=== PATIENT | female | born 1980 | race Caucasian/White ===

== ENCOUNTER 2017-06-13 18:57 | Emergency (ER) | payer OTHER ==
[2017-06-13] MEDS ORDERED: cephALEXin 250 MG CAPSULE PO STA (20:17)
--- NOTE | 2017-06-13 20:18 | ED Physician Documentation ---
PD HPI SKIN - Stated complaint Stated Complaint: BUG BITE - Chief complaint Chief Complaint: Wound - History obtained from History obtained from: Patient - History of Present Illness Timing - onset: Today, Yesterday Timing - details: Gradual onset, Still present Location: LLE Quality / character: Painful, Discolored Associated symptoms: No: Fever, Myalgias, Joint pain Contributing factors: Insect bite /sting Similar symptoms before: Has not had sx before Recently seen: Not recently seen - Additional information Additional information: Patient is a 37 year old female with no significant past medical history who is presenting to the emergency department for redness and swelling on her left lower extremity. Patient states that she had a bug bite there yesterday and she was scratching it. Today it was larger, painful and had some streaking redness. Review of Systems Constitutional: denies: Fever, Chills Eyes: reports: Reviewed and negative Ears: reports: Reviewed and negative Nose: reports: Reviewed and negative Throat: reports: Reviewed and negative Cardiac: reports: Reviewed and negative Respiratory: reports: Reviewed and negative GI: denies: Nausea, Vomiting : reports: Reviewed and negative Skin: reports: Rash, Lesions Musculoskeletal: reports: Extremity pain Neurologic: denies: Generalized weakness, Focal weakness Immunocompromised: denies: Immunocompromised PD PAST MEDICAL HISTORY - Past Medical History Past Medical History: No - Past Surgical History Past Surgical History: No - Present Medications Home Medications: Ambulatory Orders Medication Instructions Recorded Confirmed Cephalexin [Keflex] 500 mg PO Q6H 7 Days capsule 06/13/17 Citalopram [CeleXA] 40 mg PO DAILY 06/13/17 06/13/17 Fluticasone [Flonase] 06/13/17 Omeprazole 40 mg PO DAILY 06/13/17 06/13/17 - Allergies Allergies/Adverse Reactions: Allergies Allergy/AdvReac Type Severity Reaction Status Date / Time No Known Drug Allergies Allergy Verified 06/13/17 19:13 - Social History Does the pt smoke?: No Smoking Status: Never smoker - Immunizations Immunizations are current?: Yes PD ED PE NORMAL - Vitals Vital signs reviewed: Yes - General General: Alert and oriented X 3, No acute distress - HEENT HEENT: Atraumatic, PERRL - Cardiac Cardiac: RRR - Respiratory Respiratory: No respiratory distress - Neuro Neuro: Alert and oriented X 3, No motor deficit, No sensory deficit, Normal speech - Psych Psych: Normal mood PD ED PE EXPANDED - Derm Derm: Rash (5cm by 5cm area of induration with central lesion consistent with cellulitis) - Extremities Extremities: Left knee (erythema and swelling of medial left knee 5cm by 5cm streaking redness) Results - Vitals Vitals: Vital Signs - 24 hr 06/13/17 06/13/17 19:10 20:50 Temperature 36.4 C L 36.6 C Heart Rate 71 73 Respiratory 17 16 Rate Blood Pressure 147/81 H 131/81 H O2 Saturation 100 98 Oxygen O2 Source Room air PD MEDICAL DECISION MAKING - ED course Complexity details: reviewed old records, reviewed results, considered differential, d/w patient ED course: Patient was seen and examined at bedside. Patient's findings were consistent with cellulitis. Patient's lesion was outlined and patient was treated with bactrim. Patient was given detailed discharge and follow up instructions and was stable for outpatient follow up. Departure - Departure Disposition: Home, Self Care Clinical Impression: Cellulitis Condition: Good Instructions: ED Infec Skin Cellulitis Follow-Up: Talisha Yang MD [Primary Care Provider] - Within 3 Days Prescriptions: Cephalexin [Keflex] 500 mg PO Q6H 7 Days capsule Comments: Your symptoms today are being caused by a skin infection. You had your first dose of antibiotics tonight and will need to be on them for the next week. You can also use topical antibiotics. It has been outlined and you should monitor to make sure it doesn't get larger. You should follow up with your pmd for re- evaluation but may return to the emergency department at any time for new, worsening or uncontrollable symptoms. Discharge Date/Time: 06/13/17 20:52
[2017-06-13 20:52] VITALS: BP 131/81
== END 2017-06-13 20:52 | disposition home or self-care (01) ==
LOC: ED 18:57
DX: L03.116 Cellulitis of left lower limb (principal)
CPT/HCPCS: 99283; A9270

== ENCOUNTER 2021-04-11 08:00 | Outpatient (CLI) | payer OTHER | END 2021-04-11 23:59 | disposition home or self-care (01) | LOC: LAB.N 08:00 | PROVIDERS: ATTEND Physician Assistant Medical | DX: R09.81 Nasal congestion (principal); Z20.822 Contact with and (suspected) exposure to COVID-19 ==

== ENCOUNTER 2021-10-07 12:00 | Outpatient (CLI) | payer OTHER | END 2021-10-07 23:59 | disposition home or self-care (01) | LOC: LAB.N 12:00 | PROVIDERS: ATTEND Nurse Practitioner Family | DX: B34.9 Viral infection, unspecified (principal); Z20.822 Contact with and (suspected) exposure to COVID-19 ==

== ENCOUNTER 2022-03-13 09:16 | Outpatient (CLI) | payer OTHER | END 2022-03-13 09:17 | disposition critical access hospital (66) | LOC: EMS 09:16 | DX: S99.911A Unspecified injury of right ankle, initial encounter (principal); W10.9XXA Fall (on) (from) unspecified stairs and steps, initial encounter; Y93.01 Activity, walking, marching and hiking; Y92.008 Other place in unspecified non-institutional (private) residence as the place of occurrence of the external cause | CPT/HCPCS: A0425; A0429 ==

== ENCOUNTER 2022-03-13 09:49 | Emergency (ER) | payer OTHER ==
[2022-03-13] MEDS ORDERED: HYDROmorphone 1 MG/ML CARPUJECT IVP STA (10:05)
--- OUTSIDE RECORDS SUMMARY | 2022-03-13 10:13 | EXTERNAL MEDICAL SUMMARY RPT | Continuity of Care Document ---
:1980 Author Organization [facility] Address [address] [place] [address] Phone Allergies No information. Encounters No information. Functional Status No information. Immunizations No information. Medications No information. Problems No information. Procedures date description facility + Visit Code Hold All +0000 IM or SQ Injection All +0000 Ketorolac Tromethamine 30 mg/ml Soln All Results/Labs test date author facility value unit interpret ation Result panel 1 (unknown) (no (unknown) (unknown) (no value) (units (unk nown) date) unknown) (unknown) (no (unknown) (unknown) 02/01/22 (units (unkno wn) date) unknown) (unknown) (no (unknown) (unknown) [id number] (units (unkno wn) date) unknown) (unknown) (no (unknown) (unknown) Age/Sex: 41 / F (units (unknown) date) Date of Service: unknown) (unknown) (no (unknown) (unknown) Allergies (units (unkn own) date) unknown) (unknown) (no (unknown) (unknown) [place], [place] (units ( unknown) date) [id number] unknown) (unknown) (no (unknown) (unknown) Attending Dr: (units ( unknown) date) Jason Lilly unknown) [employer] (unknown) (no (unknown) (unknown) : 1980 (units (unknown) date) Acct:[id number] unknown) (unknown) (no (unknown) (unknown) Dept at (units (unkno wn) date) . unknown) (unknown) (no (unknown) (unknown) Documented By: (units (unknown) date) Jason Lilly unknown) KAITLIN 02/01/22 1034 (unknown) (no (unknown) (unknown) Draft (units (unkno wn) date) unknown) (unknown) (no (unknown) (unknown) Intake (units (unkno wn) date) unknown) (unknown) (no (unknown) (unknown) Loc: [facility]EP (units (unk nown) date) unknown) (unknown) (no (unknown) (unknown) No Known Drug (units ( unknown) date) Allergies Allergy unknown) (Verified 12/18/18 23:49) (unknown) (no (unknown) (unknown) PFSH (units (unkno wn) date) unknown) (unknown) (no (unknown) (unknown) Patient: (units (unkno wn) date) Yadira Arrieta unknown) MR#: [id number] (unknown) (no (unknown) (unknown) Reason For Visit (units (unknown) date) unknown) (unknown) (no (unknown) (unknown) Signed By: (units (unk nown) date) unknown) (unknown) (no (unknown) (unknown) Sleep Visit (units (un known) date) unknown) (unknown) (no (unknown) (unknown) [facility] ([facility] unknown) (unknown) (no (unknown) (unknown) Smoking Status: (units (unknown) date) Never smoker unknown) (unknown) (no (unknown) (unknown) This note may (units ( unknown) date) have been all or unknown) partially generated using voice recognition (unknown) (no (unknown) (unknown) Tobacco + (units (unkn own) date) Substance Use unknown) (unknown) (no (unknown) (unknown) Tobacco Status (units (unknown) date) unknown) (unknown) (no (unknown) (unknown) Visit Reasons: (units (unknown) date) 2M comp unknown) (unknown) (no (unknown) (unknown) have occurred. (units (unknown) date) If there are any unknown) questions, please contact the Medical Records (unknown) (no (unknown) (unknown) may occur. (units (unk nown) date) Occasional unknown) wrong-word or 'sound-alike' substitutions may have (unknown) (no (unknown) (unknown) occurred due to (units (unknown) date) the inherent unknown) limitations of voice recognition software. Please (unknown) (no (unknown) (unknown) read the note (units ( unknown) date) carefully and unknown) recognize, using context, where these substitutions (unknown) (no (unknown) (unknown) software. (units (unkn own) date) Although every unknown) effort is made to edit content, garde manger errors Result panel 2 (unknown) (no (unknown) (unknown) (no value) (units (unk nown) date) unknown) (unknown) (no (unknown) (unknown) (1) (units (unkno wn) date) Breathing-related unknown) sleep disorder: (unknown) (no (unknown) (unknown) (2) Insomnia: (units ( unknown) date) unknown) (unknown) (no (unknown) (unknown) (3) Excessive (units ( unknown) date) daytime unknown) sleepiness: (unknown) (no (unknown) (unknown) (4) History of (units (unknown) date) snoring: unknown) (unknown) (no (unknown) (unknown) 02/01/22 (units (unkno wn) date) unknown) (unknown) (no (unknown) (unknown) [id number] (units (unkno wn) date) unknown) (unknown) (no (unknown) (unknown) Adhere to regular (units (unknown) date) mealtime schedule, unknown) avoid snacking (unknown) (no (unknown) (unknown) Affect: normal (units (unknown) date) affect unknown) (unknown) (no (unknown) (unknown) Age/Sex: 41 / F (units (unknown) date) Date of Service: unknown) (unknown) (no (unknown) (unknown) Allergies (units (unkn own) date) unknown) (unknown) (no (unknown) (unknown) [place] (units ( unknown) date) [id number] unknown) (unknown) (no (unknown) (unknown) Appearance: (units (un known) date) grossly normal unknown) (unknown) (no (unknown) (unknown) Assessment + Plan (units (unknown) date) unknown) (unknown) (no (unknown) (unknown) Assessment and (units (unknown) date) Plan: unknown) (unknown) (no (unknown) (unknown) Associate your bed (units (unknown) date) with sleep. It's unknown) not a good idea to use your bed to watch TV, (unknown) (no (unknown) (unknown) Attending Dr: (units ( unknown) date) Jason MADRIGAL unknown) (unknown) (no (unknown) (unknown) Attitude: (units (unkn own) date) cooperative unknown) (unknown) (no (unknown) (unknown) Auto CPAP set (units ( unknown) date) pressures: CWP unknown) (unknown) (no (unknown) (unknown) Avoid alcohol (units ( unknown) date) after 4 pm unknown) (unknown) (no (unknown) (unknown) Avoid medications (units (unknown) date) which may unknown) interfere with sleep (unknown) (no (unknown) (unknown) Avoid random (units (u nknown) date) napping during the unknown) day; it can disturb the normal pattern of sleep (unknown) (no (unknown) (unknown) Avoid stimulants (units (unknown) date) such as caffeine, unknown) nicotine, and alcohol too close to bedtime. (unknown) (no (unknown) (unknown) Cognition: normal (units (unknown) date) cognition unknown) (unknown) (no (unknown) (unknown) Condition is (units (u nknown) date) Onset: Chronic and unknown) ongoing condition (unknown) (no (unknown) (unknown) Conjunctivae: (units ( unknown) date) conjunctivae unknown) normal (unknown) (no (unknown) (unknown) Consider weaning (units (unknown) date) caffeine use, unknown) starting with no caffeine after 3pm (unknown) (no (unknown) (unknown) Const (units (unkno wn) date) unknown) (unknown) (no (unknown) (unknown) Currently using (units (unknown) date) CPAP 5-15 cwp. unknown) Compliance is excellent. Using her machine (unknown) (no (unknown) (unknown) DME: (units (unkno wn) date) unknown) (unknown) (no (unknown) (unknown) : 1980 (units (unknown) date) Acct:[id number] unknown) (unknown) (no (unknown) (unknown) Dept at (units (unkno wn) date) . unknown) (unknown) (no (unknown) (unknown) Details: (units (unkno wn) date) unknown) (unknown) (no (unknown) (unknown) Device data last (units (unknown) date) 90 days: unknown) (unknown) (no (unknown) (unknown) Device set up: (units (unknown) date) unknown) (unknown) (no (unknown) (unknown) Documented By: (units (unknown) date) Jason Lilly unknown) 02/01/22 1034 (unknown) (no (unknown) (unknown) Draft (units (unkno wn) date) unknown) (unknown) (no (unknown) (unknown) Drowsy driving (units (unknown) date) handout made unknown) available. (unknown) (no (unknown) (unknown) Ears: hearing (units ( unknown) date) grossly normal unknown) bilaterally (unknown) (no (unknown) (unknown) Effort + (units (unkno wn) date) Inspection: normal unknown) respiratory effort, able to speak in complete (unknown) (no (unknown) (unknown) Ensure adequate (units (unknown) date) exposure to unknown) natural light. This is particularly important for (unknown) (no (unknown) (unknown) [place] (units (unkno wn) date) Sleepiness Scale unknown) score of 11/18 on [place]. This can be seen secondary (unknown) (no (unknown) (unknown) Establish a (units (unk nown) date) regular relaxing unknown) bedtime routine. Try to avoid emotionally upsetting (unknown) (no (unknown) (unknown) Exam Narrative (units (unknown) date) unknown) (unknown) (no (unknown) (unknown) Exam Narrative: (units (unknown) date) unknown) (unknown) (no (unknown) (unknown) Exam (units (unkno wn) date) unknown) (unknown) (no (unknown) (unknown) Eyes (units (unkno wn) date) unknown) (unknown) (no (unknown) (unknown) Food can be (units (un known) date) disruptive right unknown) before sleep; stay away from large meals close to (unknown) (no (unknown) (unknown) General: (units (unkno wn) date) cooperative, unknown) comfortable and no acute distress (unknown) (no (unknown) (unknown) General: patient (units (unknown) date) alert, patient unknown) awake and patient oriented x3 (unknown) (no (unknown) (unknown) Get regular (units (un known) date) moderate exercise unknown) (30 minutes, 3x/week) (unknown) (no (unknown) (unknown) HENMT (units (unkno wn) date) unknown) (unknown) (no (unknown) (unknown) HPI Sleep Follow (units (unknown) date) Up unknown) (unknown) (no (unknown) (unknown) Head: normal to (units (unknown) date) inspection unknown) (unknown) (no (unknown) (unknown) Implications of (units (unknown) date) these findings unknown) were discussed. Next steps were discussed. Given (unknown) (no (unknown) (unknown) Intake (units (unkno wn) date) unknown) (unknown) (no (unknown) (unknown) Light exposure (units (unknown) date) during the day unknown) helps maintain a healthy sleep-wake cycle. In (unknown) (no (unknown) (unknown) Loc: SLEEP (units (unk nown) date) unknown) (unknown) (no (unknown) (unknown) Make sure that the (units (unknown) date) sleep environment unknown) is pleasant and relaxing. The bed should be (unknown) (no (unknown) (unknown) Mallampati score (units (unknown) date) of IV. Diagnostic unknown) sleep study was consistent with less than (unknown) (no (unknown) (unknown) Mood: congruent (units (unknown) date) mood unknown) (unknown) (no (unknown) (unknown) Neck (units (unkno wn) date) unknown) (unknown) (no (unknown) (unknown) Neck: normal (units (u nknown) date) visual inspection unknown) (unknown) (no (unknown) (unknown) Neuro (units (unkno wn) date) unknown) (unknown) (no (unknown) (unknown) No Known Drug (units ( unknown) date) Allergies Allergy unknown) (Verified 12/18/18 23:49) (unknown) (no (unknown) (unknown) PFSH (units (unkno wn) date) unknown) (unknown) (no (unknown) (unknown) Patient has a (units ( unknown) date) history of chronic unknown) snoring. Positional therapy and the use of (unknown) (no (unknown) (unknown) Patient (units (unkno wn) date) instructed to use unknown) scheduled naps as needed for drowsiness safety (unknown) (no (unknown) (unknown) Patient (units (unkno wn) date) prescribed unknown) continued CPAP therapy at 9-15 cwp. No changes made today. (unknown) (no (unknown) (unknown) Patient reports a (units (unknown) date) history of snoring unknown) and a disturbed sleep pattern. There is (unknown) (no (unknown) (unknown) Patient reports (units (unknown) date) symptoms of unknown) chronic insomnia for more than 3 months as evidenced (unknown) (no (unknown) (unknown) Patient was (units (un known) date) encouraged to unknown) maintain PAP usage at a minimum of 4 hours a night, (unknown) (no (unknown) (unknown) Patient was (units (un known) date) instructed to unknown) avoid driving or operating heavy machinery when (unknown) (no (unknown) (unknown) Patient's (units (unkno wn) date) diagnostic sleep unknown) study was consistent with less than significant sleep (unknown) (no (unknown) (unknown) Patient: (units (unkno wn) date) MeenakshiYadira Romero MR#: unknown) [id number] (unknown) (no (unknown) (unknown) Plan (units (unkno wn) date) unknown) (unknown) (no (unknown) (unknown) Positional (units (unk nown) date) therapy as needed. unknown) (unknown) (no (unknown) (unknown) Prescription (units (u nknown) date) written for unknown) renewal of PAP supplies; (unknown) (no (unknown) (unknown) Properly timed (units (unknown) date) exercise can unknown) promote good sleep. Vigorous exercise should be (unknown) (no (unknown) (unknown) Psych (units (unkno wn) date) unknown) (unknown) (no (unknown) (unknown) RDIs have been (units (unknown) date) 14.6, 19.1(with a unknown) little REM sleep) and 18.4. This is consistent (unknown) (no (unknown) (unknown) Reason For Visit (units (unknown) date) unknown) (unknown) (no (unknown) (unknown) Resp (units (unkno wn) date) unknown) (unknown) (no (unknown) (unknown) Return visit in 6 (units (unknown) date) months to assess unknown) continued response to PAP therapy Patient was (unknown) (no (unknown) (unknown) Sclera: sclerae (units (unknown) date) normal unknown) (unknown) (no (unknown) (unknown) Signed By: (units (unk nown) date) unknown) (unknown) (no (unknown) (unknown) Sleep Visit (units (un known) date) unknown) (unknown) (no (unknown) (unknown) [facility] unknown) (unknown) (no (unknown) (unknown) Smoking Status: (units (unknown) date) Never smoker unknown) (unknown) (no (unknown) (unknown) Speech and (units (unk nown) date) Movement: speech unknown) and movement normal (unknown) (no (unknown) (unknown) Speech: speech (units (unknown) date) normal unknown) (unknown) (no (unknown) (unknown) The basics of the (units (unknown) date) pathophysiology of unknown) sleep apnea and the effect on sleep in (unknown) (no (unknown) (unknown) The patient (units (un known) date) reports symptoms unknown) of excessive daytime sleepiness as evidenced by (unknown) (no (unknown) (unknown) This can be seen (units (unknown) date) secondary to sleep unknown) apnea, depression, medical conditions or can (unknown) (no (unknown) (unknown) This is (units (unkno wn) date) consistent with unknown) nocturnal respiratory disturbance or UARS. CPAP was (unknown) (no (unknown) (unknown) This note may (units ( unknown) date) have been all or unknown) partially generated using voice recognition (unknown) (no (unknown) (unknown) This will be (units (u nknown) date) reassessed after unknown) her nocturnal respiratory disturbance has been (unknown) (no (unknown) (unknown) Tobacco + (units (unkn own) date) Substance Use unknown) (unknown) (no (unknown) (unknown) Tobacco Status (units (unknown) date) unknown) (unknown) (no (unknown) (unknown) Treatment (units (unkn own) date) Effects: Pap unknown) Treatment Response/Side Effects: adherent to current PAP (unknown) (no (unknown) (unknown) Treatment (units (unkn own) date) Response/Side unknown) Affects (unknown) (no (unknown) (unknown) 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 History of snoring and a disturbed (unknown) (no (unknown) (unknown) Usage: 100% with (units (unknown) date) % greater than 4 unknown) hours. Leak . AHIflow: (unknown) (no (unknown) (unknown) Use of nasal (units (u nknown) date) steroids and unknown) montelukast was also reviewed. This has been noted to (unknown) (no (unknown) (unknown) Visit Reasons: 2M (units (unknown) date) comp unknown) (unknown) (no (unknown) (unknown) Visit type (FU): (units (unknown) date) follow up of LANA unknown) therapy (Follow up UARS) Follow up evaluation (unknown) (no (unknown) (unknown) While alcohol is (units (unknown) date) well known to unknown) speed the onset of sleep, it disrupts sleep in (unknown) (no (unknown) (unknown) a repeat sleep (units (unknown) date) study with the use unknown) of a hypnotic was indicated. this third study (unknown) (no (unknown) (unknown) activities, you (units (unknown) date) may have more unknown) problems getting back to sleep during the night. (unknown) (no (unknown) (unknown) addition, (units (unkn own) date) avoiding nighttime unknown) bright light exposure, which can occur with many (unknown) (no (unknown) (unknown) addressed. (units (unk nown) date) unknown) (unknown) (no (unknown) (unknown) again showed (units (un known) date) little to no rem unknown) sleep, poor quality sleep and an elevated RDI. the (unknown) (no (unknown) (unknown) also a history of (units (unknown) date) depression and unknown) chronic insomnia with a Mallampati score of IV. (unknown) (no (unknown) (unknown) and her elevated (units (unknown) date) RDI, a repeat unknown) sleep study with the use of a hypnotic was (unknown) (no (unknown) (unknown) and wakefulness. (units (unknown) date) Scheduled napping unknown) may be considered if appropriate for the (unknown) (no (unknown) (unknown) apnea, no (units (unkn own) date) snoring, some unknown) desaturation events and no significant leg movements. (unknown) (no (unknown) (unknown) approved. (units (unkn own) date) unknown) (unknown) (no (unknown) (unknown) be an independent (units (unknown) date) problem. Sleep unknown) hygiene and sleep schedules were discussed. (unknown) (no (unknown) (unknown) be moderate on (units (unknown) date) all her sleep unknown) studies. we will continue to follow going forward. (unknown) (no (unknown) (unknown) bedtime. Also (units (u nknown) date) dietary changes unknown) can cause sleep problems, if someone is struggling (unknown) (no (unknown) (unknown) bring your (units (unk nown) date) problems to bed. unknown) (unknown) (no (unknown) (unknown) but increased (units ( unknown) date) benefit from more unknown) usage was also explained. (unknown) (no (unknown) (unknown) by trouble (units (unk nown) date) falling asleep, unknown) trouble staying asleep and non-restorative sleep. (unknown) (no (unknown) (unknown) clearly (units (unkno wn) date) benefitting from unknown) PAP therapy and is willing to continue. (unknown) (no (unknown) (unknown) clinical history (units (unknown) date) it was determined unknown) that a diagnostic sleep study was indicated. (unknown) (no (unknown) (unknown) comfortable, the (units (unknown) date) room should be unknown) quiet, not too hot or cold, or too bright. (unknown) (no (unknown) (unknown) conversations and (units (unknown) date) activities before unknown) trying to go to sleep. Don't dwell on, or (unknown) (no (unknown) (unknown) daytime sleeping (units (unknown) date) complaints of unknown) sleepiness at work and drowsy driving with an (unknown) (no (unknown) (unknown) dishes. And, (units (u nknown) date) remember, unknown) chocolate has caffeine. (unknown) (no (unknown) (unknown) done before bed (units (unknown) date) to help initiate a unknown) restful night's sleep. (unknown) (no (unknown) (unknown) drowsy. (units (unkno wn) date) unknown) (unknown) (no (unknown) (unknown) elevated RDI. the (units (unknown) date) RDIs have been unknown) 14.6, 19.1(with a little REM sleep) and 18.4. (unknown) (no (unknown) (unknown) general were (units (u nknown) date) discussed at unknown) length. After review of the physical findings and (unknown) (no (unknown) (unknown) have occurred. If (units (unknown) date) there are any unknown) questions, please contact the Medical Records (unknown) (no (unknown) (unknown) her sleep issues, (units (unknown) date) low REM sleep unknown) amount on the sleep study and her elevated RDI, (unknown) (no (unknown) (unknown) indicated to (units (u nknown) date) determine to what unknown) extent this is contributing to her poor quality (unknown) (no (unknown) (unknown) indicated. Study (units (unknown) date) again showed unknown) little to no rem sleep, poor quality sleep and an (unknown) (no (unknown) (unknown) initiated. (units (unk nown) date) unknown) (unknown) (no (unknown) (unknown) instructed to (units ( unknown) date) return sooner if unknown) any questions or concerns arise. (unknown) (no (unknown) (unknown) leg movements. (units (unknown) date) Given her sleep unknown) issues, low REM sleep amount on the sleep study (unknown) (no (unknown) (unknown) listen to the (units ( unknown) date) radio, or read as unknown) if you associate falling asleep with these (unknown) (no (unknown) (unknown) may occur. (units (unk nown) date) Occasional unknown) wrong-word or 'sound-alike' substitutions may have (unknown) (no (unknown) (unknown) nasal saline and (units (unknown) date) internal and unknown) external nasal dilator therapies were discussed. (unknown) (no (unknown) (unknown) occurred due to (units (unknown) date) the inherent unknown) limitations of voice recognition software. Please (unknown) (no (unknown) (unknown) of LANA therapy: (units (unknown) date) CPAP (5-15 cwp) unknown) (unknown) (no (unknown) (unknown) older people who (units (unknown) date) may not venture unknown) outside as frequently as children and adults. (unknown) (no (unknown) (unknown) once her (units (unkno wn) date) nocturnal unknown) respiratory disturbance has been addressed. (unknown) (no (unknown) (unknown) optimal sleep (units ( unknown) date) schedule. unknown) (unknown) (no (unknown) (unknown) personal (units (unkno wn) date) electronic unknown) devices, can also help maintain a healthy sleep-wake cycle. (unknown) (no (unknown) (unknown) positive (units (unkno wn) date) improvement as unknown) evidenced by decreased daytime sleepiness. She is (unknown) (no (unknown) (unknown) problem. Risks and (units (unknown) date) symptoms of unknown) drowsiness were reviewed. This will be reassessed (unknown) (no (unknown) (unknown) read the note (units ( unknown) date) carefully and unknown) recognize, using context, where these substitutions (unknown) (no (unknown) (unknown) regularly. (units (unk nown) date) Reports no issues unknown) with the machine, mask or pressure. Showing (unknown) (no (unknown) (unknown) sentences and no (units (unknown) date) audible wheezes unknown) (unknown) (no (unknown) (unknown) significant sleep (units (unknown) date) apnea, no snoring, unknown) some desaturation events and no significant (unknown) (no (unknown) (unknown) sleep and daytime (units (unknown) date) sleepiness. Her unknown) insurance will be contracted to determine if (unknown) (no (unknown) (unknown) sleep pattern. (units ( unknown) date) There is also a unknown) history of depression and chronic insomnia with a (unknown) (no (unknown) (unknown) software. (units (unkn own) date) Although every unknown) effort is made to edit content, garde manger errors (unknown) (no (unknown) (unknown) taken in the (units (u nknown) date) morning or late unknown) afternoon. A relaxing exercise, like yoga, can be (unknown) (no (unknown) (unknown) the second half (units (unknown) date) as the body begins unknown) to metabolize the alcohol, causing arousal. (unknown) (no (unknown) (unknown) the therapy will (units (unknown) date) be covered. She is unknown) willing to proceed with PAP therapy if (unknown) (no (unknown) (unknown) to sleep apnea, (units (unknown) date) insomnia, unknown) depression, medical conditions or can be a primary (unknown) (no (unknown) (unknown) treatment (units (unkn own) date) improving on unknown) treatment (unknown) (no (unknown) (unknown) with a sleep (units (u nknown) date) problem, it's not unknown) a good time to start experimenting with spicy (unknown) (no (unknown) (unknown) with nocturnal (units (unknown) date) respiratory unknown) disturbance or UARS. Treatment with CPAP therapy is Result panel 3 (unknown) (no (unknown) (unknown) (no value) (units (unk nown) date) unknown) (unknown) (no (unknown) (unknown) (1) (units (unkno wn) date) Breathing-related unknown) sleep disorder: (unknown) (no (unknown) (unknown) (2) Insomnia: (units ( unknown) date) unknown) (unknown) (no (unknown) (unknown) (3) Excessive (units ( unknown) date) daytime unknown) sleepiness: (unknown) (no (unknown) (unknown) (4) History of (units (unknown) date) snoring: unknown) (unknown) (no (unknown) (unknown) 02/01/22 (units (unkno wn) date) unknown) (unknown) (no (unknown) (unknown) [id number] (units (unkno wn) date) unknown) (unknown) (no (unknown) (unknown) AHIflow: 1.4 (units (u nknown) date) unknown) (unknown) (no (unknown) (unknown) Adhere to regular (units (unknown) date) mealtime schedule, unknown) avoid snacking (unknown) (no (unknown) (unknown) Affect: normal (units (unknown) date) affect unknown) (unknown) (no (unknown) (unknown) Age/Sex: 41 / F (units (unknown) date) Date of Service: unknown) (unknown) (no (unknown) (unknown) Allergies (units (unkn own) date) unknown) (unknown) (no (unknown) (unknown) OLGA Owen (units ( unknown) date) [id number] unknown) (unknown) (no (unknown) (unknown) Appearance: (units (un known) date) grossly normal unknown) (unknown) (no (unknown) (unknown) Assessment + Plan (units (unknown) date) unknown) (unknown) (no (unknown) (unknown) Assessment and (units (unknown) date) Plan: unknown) (unknown) (no (unknown) (unknown) Associate your bed (units (unknown) date) with sleep. It's unknown) not a good idea to use your bed to watch TV, (unknown) (no (unknown) (unknown) Attending Dr: (units ( unknown) date) Jason MADRIGAL unknown) (unknown) (no (unknown) (unknown) Attitude: (units (unkn own) date) cooperative unknown) (unknown) (no (unknown) (unknown) Auto CPAP set (units ( unknown) date) pressures: 5-15 unknown) CWP (unknown) (no (unknown) (unknown) Avoid alcohol (units ( unknown) date) after 4 pm unknown) (unknown) (no (unknown) (unknown) Avoid medications (units (unknown) date) which may unknown) interfere with sleep (unknown) (no (unknown) (unknown) Avoid random (units (u nknown) date) napping during the unknown) day; it can disturb the normal pattern of sleep (unknown) (no (unknown) (unknown) Avoid stimulants (units (unknown) date) such as caffeine, unknown) nicotine, and alcohol too close to bedtime. (unknown) (no (unknown) (unknown) Cognition: normal (units (unknown) date) cognition unknown) (unknown) (no (unknown) (unknown) Condition is (units (u nknown) date) Onset: Chronic and unknown) ongoing condition (unknown) (no (unknown) (unknown) Conjunctivae: (units ( unknown) date) conjunctivae unknown) normal (unknown) (no (unknown) (unknown) Consider weaning (units (unknown) date) caffeine use, unknown) starting with no caffeine after 3pm (unknown) (no (unknown) (unknown) Const (units (unkno wn) date) unknown) (unknown) (no (unknown) (unknown) Currently using (units (unknown) date) CPAP 5-15 cwp. unknown) Compliance is excellent. Using her machine (unknown) (no (unknown) (unknown) DME: (units (o wn) date) unknown) (unknown) (no (unknown) (unknown) : 1980 (units (unknown) date) Acct:[id number] unknown) (unknown) (no (unknown) (unknown) Dept at (units (o wn) date) . unknown) (unknown) (no (unknown) (unknown) Details: (units (o wn) date) unknown) (unknown) (no (unknown) (unknown) Device data last (units (unknown) date) 60 days: unknown) (unknown) (no (unknown) (unknown) Device set up: (units (unknown) date) unknown) (unknown) (no (unknown) (unknown) Documented By: (units (unknown) date) Jason Lilly unknown) 02/01/22 1034 (unknown) (no (unknown) (unknown) Draft (units (unkno wn) date) unknown) (unknown) (no (unknown) (unknown) Drowsy driving (units (unknown) date) handout made unknown) available. (unknown) (no (unknown) (unknown) Ears: hearing (units ( unknown) date) grossly normal unknown) bilaterally (unknown) (no (unknown) (unknown) Effort + (units (unkno wn) date) Inspection: normal unknown) respiratory effort, able to speak in complete (unknown) (no (unknown) (unknown) Ensure adequate (units (unknown) date) exposure to unknown) natural light. This is particularly important for (unknown) (no (unknown) (unknown) [place] (units (unkno wn) date) Sleepiness Scale unknown) score of 06/24 on [place]. This can be seen secondary (unknown) (no (unknown) (unknown) Establish a (units (unk nown) date) regular relaxing unknown) bedtime routine. Try to avoid emotionally upsetting (unknown) (no (unknown) (unknown) Exam Narrative (units (unknown) date) unknown) (unknown) (no (unknown) (unknown) Exam Narrative: (units (unknown) date) unknown) (unknown) (no (unknown) (unknown) Exam (units (unkno wn) date) unknown) (unknown) (no (unknown) (unknown) Eyes (units (unkno wn) date) unknown) (unknown) (no (unknown) (unknown) Food can be (units (un known) date) disruptive right unknown) before sleep; stay away from large meals close to (unknown) (no (unknown) (unknown) General: (units (unkno wn) date) cooperative, unknown) comfortable and no acute distress (unknown) (no (unknown) (unknown) General: patient (units (unknown) date) alert, patient unknown) awake and patient oriented x3 (unknown) (no (unknown) (unknown) Get regular (units (un known) date) moderate exercise unknown) (30 minutes, 3x/week) (unknown) (no (unknown) (unknown) HENMT (units (unkno wn) date) unknown) (unknown) (no (unknown) (unknown) HPI Sleep Follow (units (unknown) date) Up unknown) (unknown) (no (unknown) (unknown) Head: normal to (units (unknown) date) inspection unknown) (unknown) (no (unknown) (unknown) Implications of (units (unknown) date) these findings unknown) were discussed. Next steps were discussed. Given (unknown) (no (unknown) (unknown) Intake (units (unkno wn) date) unknown) (unknown) (no (unknown) (unknown) Light exposure (units (unknown) date) during the day unknown) helps maintain a healthy sleep-wake cycle. In (unknown) (no (unknown) (unknown) Loc: SLEEP (units (unk nown) date) unknown) (unknown) (no (unknown) (unknown) Make sure that the (units (unknown) date) sleep environment unknown) is pleasant and relaxing. The bed should be (unknown) (no (unknown) (unknown) Mallampati score (units (unknown) date) of IV. Diagnostic unknown) sleep study was consistent with less than (unknown) (no (unknown) (unknown) Mood: congruent (units (unknown) date) mood unknown) (unknown) (no (unknown) (unknown) Neck (units (unkno wn) date) unknown) (unknown) (no (unknown) (unknown) Neck: normal (units (u nknown) date) visual inspection unknown) (unknown) (no (unknown) (unknown) Neuro (units (unkno wn) date) unknown) (unknown) (no (unknown) (unknown) No Known Drug (units ( unknown) date) Allergies Allergy unknown) (Verified 12/18/18 23:49) (unknown) (no (unknown) (unknown) PFSH (units (unkno wn) date) unknown) (unknown) (no (unknown) (unknown) Patient has a (units ( unknown) date) history of chronic unknown) snoring. Positional therapy and the use of (unknown) (no (unknown) (unknown) Patient (units (unkno wn) date) instructed to use unknown) scheduled naps as needed for drowsiness safety (unknown) (no (unknown) (unknown) Patient (units (unkno wn) date) prescribed unknown) continued CPAP therapy at 9-15 cwp. No changes made today. (unknown) (no (unknown) (unknown) Patient reports a (units (unknown) date) history of snoring unknown) and a disturbed sleep pattern. There is (unknown) (no (unknown) (unknown) Patient reports (units (unknown) date) symptoms of unknown) chronic insomnia for more than 3 months as evidenced (unknown) (no (unknown) (unknown) Patient was (units (un known) date) encouraged to unknown) maintain PAP usage at a minimum of 4 hours a night, (unknown) (no (unknown) (unknown) Patient was (units (un known) date) instructed to unknown) avoid driving or operating heavy machinery when (unknown) (no (unknown) (unknown) Patient's (units (unkno wn) date) diagnostic sleep unknown) study was consistent with less than significant sleep (unknown) (no (unknown) (unknown) Patient: (units (unkno wn) date) Yadira Arrieta MR#: unknown) [id number] (unknown) (no (unknown) (unknown) Plan (units (unkno wn) date) unknown) (unknown) (no (unknown) (unknown) Positional (units (unk nown) date) therapy as needed. unknown) (unknown) (no (unknown) (unknown) Prescription (units (u nknown) date) written for unknown) renewal of PAP supplies; (unknown) (no (unknown) (unknown) Properly timed (units (unknown) date) exercise can unknown) promote good sleep. Vigorous exercise should be (unknown) (no (unknown) (unknown) Psych (units (unkno wn) date) unknown) (unknown) (no (unknown) (unknown) RDIs have been (units (unknown) date) 14.6, 19.1(with a unknown) little REM sleep) and 18.4. This is consistent (unknown) (no (unknown) (unknown) Reason For Visit (units (unknown) date) unknown) (unknown) (no (unknown) (unknown) Resp (units (unkno wn) date) unknown) (unknown) (no (unknown) (unknown) Return visit in 6 (units (unknown) date) months to assess unknown) continued response to PAP therapy Patient was (unknown) (no (unknown) (unknown) Sclera: sclerae (units (unknown) date) normal unknown) (unknown) (no (unknown) (unknown) Signed By: (units (unk nown) date) unknown) (unknown) (no (unknown) (unknown) Sleep Visit (units (un known) date) unknown) (unknown) (no (unknown) (unknown) [facility] unknown) (unknown) (no (unknown) (unknown) Smoking Status: (units (unknown) date) Never smoker unknown) (unknown) (no (unknown) (unknown) Speech and (units (unk nown) date) Movement: speech unknown) and movement normal (unknown) (no (unknown) (unknown) Speech: speech (units (unknown) date) normal unknown) (unknown) (no (unknown) (unknown) The basics of the (units (unknown) date) pathophysiology of unknown) sleep apnea and the effect on sleep in (unknown) (no (unknown) (unknown) The patient (units (un known) date) reports symptoms unknown) of excessive daytime sleepiness as evidenced by (unknown) (no (unknown) (unknown) This can be seen (units (unknown) date) secondary to sleep unknown) apnea, depression, medical conditions or can (unknown) (no (unknown) (unknown) This is (units (unkno wn) date) consistent with unknown) nocturnal respiratory disturbance or UARS. CPAP was (unknown) (no (unknown) (unknown) This note may (units ( unknown) date) have been all or unknown) partially generated using voice recognition (unknown) (no (unknown) (unknown) This will be (units (u nknown) date) reassessed after unknown) her nocturnal respiratory disturbance has been (unknown) (no (unknown) (unknown) Tobacco + (units (unkn own) date) Substance Use unknown) (unknown) (no (unknown) (unknown) Tobacco Status (units (unknown) date) unknown) (unknown) (no (unknown) (unknown) Treatment (units (unkn own) date) Effects: Pap unknown) Treatment Response/Side Effects: adherent to current PAP (unknown) (no (unknown) (unknown) Treatment (units (unkn own) date) Response/Side unknown) Affects (unknown) (no (unknown) (unknown) 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 History of snoring and a disturbed (unknown) (no (unknown) (unknown) Usage: 56.7% (34 (units (unknown) date) days) with 51.7% unknown) greater than 4 hours. Leak 9 seconds. (unknown) (no (unknown) (unknown) Use of nasal (units (u nknown) date) steroids and unknown) montelukast was also reviewed. This has been noted to (unknown) (no (unknown) (unknown) Visit Reasons: 2M (units (unknown) date) comp unknown) (unknown) (no (unknown) (unknown) Visit type (FU): (units (unknown) date) follow up of [facility] unknown) therapy (Follow up UARS) Follow up evaluation (unknown) (no (unknown) (unknown) While alcohol is (units (unknown) date) well known to unknown) speed the onset of sleep, it disrupts sleep in (unknown) (no (unknown) (unknown) a repeat sleep (units (unknown) date) study with the use unknown) of a hypnotic was indicated. this third study (unknown) (no (unknown) (unknown) activities, you (units (unknown) date) may have more unknown) problems getting back to sleep during the night. (unknown) (no (unknown) (unknown) addition, (units (unkn own) date) avoiding nighttime unknown) bright light exposure, which can occur with many (unknown) (no (unknown) (unknown) addressed. (units (unk nown) date) unknown) (unknown) (no (unknown) (unknown) again showed (units (un known) date) little to no rem unknown) sleep, poor quality sleep and an elevated RDI. the (unknown) (no (unknown) (unknown) also a history of (units (unknown) date) depression and unknown) chronic insomnia with a Mallampati score of IV. (unknown) (no (unknown) (unknown) and her elevated (units (unknown) date) RDI, a repeat unknown) sleep study with the use of a hypnotic was (unknown) (no (unknown) (unknown) and wakefulness. (units (unknown) date) Scheduled napping unknown) may be considered if appropriate for the (unknown) (no (unknown) (unknown) apnea, no (units (unkn own) date) snoring, some unknown) desaturation events and no significant leg movements. (unknown) (no (unknown) (unknown) approved. (units (unkn own) date) unknown) (unknown) (no (unknown) (unknown) be an independent (units (unknown) date) problem. Sleep unknown) hygiene and sleep schedules were discussed. (unknown) (no (unknown) (unknown) be moderate on (units (unknown) date) all her sleep unknown) studies. we will continue to follow going forward. (unknown) (no (unknown) (unknown) bedtime. Also (units (u nknown) date) dietary changes unknown) can cause sleep problems, if someone is struggling (unknown) (no (unknown) (unknown) bring your (units (unk nown) date) problems to bed. unknown) (unknown) (no (unknown) (unknown) but increased (units ( unknown) date) benefit from more unknown) usage was also explained. (unknown) (no (unknown) (unknown) by trouble (units (unk nown) date) falling asleep, unknown) trouble staying asleep and non-restorative sleep. (unknown) (no (unknown) (unknown) clearly (units (unkno wn) date) benefitting from unknown) PAP therapy and is willing to continue. (unknown) (no (unknown) (unknown) clinical history (units (unknown) date) it was determined unknown) that a diagnostic sleep study was indicated. (unknown) (no (unknown) (unknown) comfortable, the (units (unknown) date) room should be unknown) quiet, not too hot or cold, or too bright. (unknown) (no (unknown) (unknown) conversations and (units (unknown) date) activities before unknown) trying to go to sleep. Don't dwell on, or (unknown) (no (unknown) (unknown) daytime sleeping (units (unknown) date) complaints of unknown) sleepiness at work and drowsy driving with an (unknown) (no (unknown) (unknown) dishes. And, (units (u nknown) date) remember, unknown) chocolate has caffeine. (unknown) (no (unknown) (unknown) done before bed (units (unknown) date) to help initiate a unknown) restful night's sleep. (unknown) (no (unknown) (unknown) drowsy. (units (unkno wn) date) unknown) (unknown) (no (unknown) (unknown) elevated RDI. the (units (unknown) date) RDIs have been unknown) 14.6, 19.1(with a little REM sleep) and 18.4. (unknown) (no (unknown) (unknown) general were (units (u nknown) date) discussed at unknown) length. After review of the physical findings and (unknown) (no (unknown) (unknown) have occurred. If (units (unknown) date) there are any unknown) questions, please contact the Medical Records (unknown) (no (unknown) (unknown) her sleep issues, (units (unknown) date) low REM sleep unknown) amount on the sleep study and her elevated RDI, (unknown) (no (unknown) (unknown) indicated to (units (u nknown) date) determine to what unknown) extent this is contributing to her poor quality (unknown) (no (unknown) (unknown) indicated. Study (units (unknown) date) again showed unknown) little to no rem sleep, poor quality sleep and an (unknown) (no (unknown) (unknown) initiated. (units (unk nown) date) unknown) (unknown) (no (unknown) (unknown) instructed to (units ( unknown) date) return sooner if unknown) any questions or concerns arise. (unknown) (no (unknown) (unknown) leg movements. (units (unknown) date) Given her sleep unknown) issues, low REM sleep amount on the sleep study (unknown) (no (unknown) (unknown) listen to the (units ( unknown) date) radio, or read as unknown) if you associate falling asleep with these (unknown) (no (unknown) (unknown) may occur. (units (unk nown) date) Occasional unknown) wrong-word or 'sound-alike' substitutions may have (unknown) (no (unknown) (unknown) nasal saline and (units (unknown) date) internal and unknown) external nasal dilator therapies were discussed. (unknown) (no (unknown) (unknown) occurred due to (units (unknown) date) the inherent unknown) limitations of voice recognition software. Please (unknown) (no (unknown) (unknown) of [facility] therapy: (units (unknown) date) CPAP (5-15 cwp) unknown) (unknown) (no (unknown) (unknown) older people who (units (unknown) date) may not venture unknown) outside as frequently as children and adults. (unknown) (no (unknown) (unknown) once her (units (unkno wn) date) nocturnal unknown) respiratory disturbance has been addressed. (unknown) (no (unknown) (unknown) optimal sleep (units ( unknown) date) schedule. unknown) (unknown) (no (unknown) (unknown) personal (units (unkno wn) date) electronic unknown) devices, can also help maintain a healthy sleep-wake cycle. (unknown) (no (unknown) (unknown) positive (units (unkno wn) date) improvement as unknown) evidenced by decreased daytime sleepiness. She is (unknown) (no (unknown) (unknown) problem. Risks and (units (unknown) date) symptoms of unknown) drowsiness were reviewed. This will be reassessed (unknown) (no (unknown) (unknown) read the note (units ( unknown) date) carefully and unknown) recognize, using context, where these substitutions (unknown) (no (unknown) (unknown) regularly. (units (unk nown) date) Reports no issues unknown) with the machine, mask or pressure. Showing (unknown) (no (unknown) (unknown) sentences and no (units (unknown) date) audible wheezes unknown) (unknown) (no (unknown) (unknown) significant sleep (units (unknown) date) apnea, no snoring, unknown) some desaturation events and no significant (unknown) (no (unknown) (unknown) sleep and daytime (units (unknown) date) sleepiness. Her unknown) insurance will be contracted to determine if (unknown) (no (unknown) (unknown) sleep pattern. (units ( unknown) date) There is also a unknown) history of depression and chronic insomnia with a (unknown) (no (unknown) (unknown) software. (units (unkn own) date) Although every unknown) effort is made to edit content, garde manger errors (unknown) (no (unknown) (unknown) taken in the (units (u nknown) date) morning or late unknown) afternoon. A relaxing exercise, like yoga, can be (unknown) (no (unknown) (unknown) the second half (units (unknown) date) as the body begins unknown) to metabolize the alcohol, causing arousal. (unknown) (no (unknown) (unknown) the therapy will (units (unknown) date) be covered. She is unknown) willing to proceed with PAP therapy if (unknown) (no (unknown) (unknown) to sleep apnea, (units (unknown) date) insomnia, unknown) depression, medical conditions or can be a primary (unknown) (no (unknown) (unknown) treatment (units (unkn own) date) improving on unknown) treatment (unknown) (no (unknown) (unknown) with a sleep (units (u nknown) date) problem, it's not unknown) a good time to start experimenting with spicy (unknown) (no (unknown) (unknown) with nocturnal (units (unknown) date) respiratory unknown) disturbance or UARS. Treatment with CPAP therapy is Result panel 4 (unknown) (no (unknown) (unknown) (no value) (units (unk nown) date) unknown) (unknown) (no (unknown) (unknown) (1) (units (unkno wn) date) Breathing-related unknown) sleep disorder: (unknown) (no (unknown) (unknown) (2) Insomnia: (units ( unknown) date) unknown) (unknown) (no (unknown) (unknown) (3) Excessive (units ( unknown) date) daytime unknown) sleepiness: (unknown) (no (unknown) (unknown) (4) History of (units (unknown) date) snoring: unknown) (unknown) (no (unknown) (unknown) 0 = Would never (units (unknown) date) doze or sleep, 1 = unknown) Slight chance of dozing or sleeping, 2 = (unknown) (no (unknown) (unknown) 02/01/22 (units (unkno wn) date) unknown) (unknown) (no (unknown) (unknown) 10:49 (units (unkno wn) date) unknown) (unknown) (no (unknown) (unknown) [id number] (units (unkno wn) date) unknown) (unknown) (no (unknown) (unknown) AHIflow: 1.4 (units (u nknown) date) unknown) (unknown) (no (unknown) (unknown) Adhere to regular (units (unknown) date) mealtime schedule, unknown) avoid snacking (unknown) (no (unknown) (unknown) Affect: normal (units (unknown) date) affect unknown) (unknown) (no (unknown) (unknown) Age/Sex: 41 / F (units (unknown) date) Date of Service: unknown) (unknown) (no (unknown) (unknown) Allergies (units (unkn own) date) unknown) (unknown) (no (unknown) (unknown) [place], [place] (units ( unknown) date) [id number] unknown) (unknown) (no (unknown) (unknown) Appearance: (units (un known) date) grossly normal unknown) (unknown) (no (unknown) (unknown) Assessment + Plan (units (unknown) date) unknown) (unknown) (no (unknown) (unknown) Assessment and (units (unknown) date) Plan: unknown) (unknown) (no (unknown) (unknown) Associate your bed (units (unknown) date) with sleep. It's unknown) not a good idea to use your bed to watch TV, (unknown) (no (unknown) (unknown) Attending Dr: (units ( unknown) date) Jason MADRIGAL unknown) (unknown) (no (unknown) (unknown) Attitude: (units (unkn own) date) cooperative unknown) (unknown) (no (unknown) (unknown) Auto CPAP set (units ( unknown) date) pressures: 5-15 unknown) CWP (unknown) (no (unknown) (unknown) Avoid alcohol (units ( unknown) date) after 4 pm unknown) (unknown) (no (unknown) (unknown) Avoid medications (units (unknown) date) which may unknown) interfere with sleep (unknown) (no (unknown) (unknown) Avoid random (units (u nknown) date) napping during the unknown) day; it can disturb the normal pattern of sleep (unknown) (no (unknown) (unknown) Avoid stimulants (units (unknown) date) such as caffeine, unknown) nicotine, and alcohol too close to bedtime. (unknown) (no (unknown) (unknown) BMI 40.0 (units (unkno wn) date) unknown) (unknown) (no (unknown) (unknown) BP 147/90 H (units (un known) date) unknown) (unknown) (no (unknown) (unknown) Being a passenger (units (unknown) date) in a motor vehicle unknown) for an hour or so: 0 = Never (None) (unknown) (no (unknown) (unknown) Blood Pressure (units (unknown) date) Location Lt unknown) brachial (unknown) (no (unknown) (unknown) Chief Complaint: (units (unknown) date) Follow up CPAP unknown) therapy for UARS (unknown) (no (unknown) (unknown) Cognition: normal (units (unknown) date) cognition unknown) (unknown) (no (unknown) (unknown) Condition is (units (u nknown) date) Onset: Chronic and unknown) ongoing condition (unknown) (no (unknown) (unknown) Conjunctivae: (units ( unknown) date) conjunctivae unknown) normal (unknown) (no (unknown) (unknown) Consider weaning (units (unknown) date) caffeine use, unknown) starting with no caffeine after 3pm (unknown) (no (unknown) (unknown) Const (units (unkno wn) date) unknown) (unknown) (no (unknown) (unknown) Currently using (units (unknown) date) CPAP 5-15 cwp. Has unknown) not been using regularly due to sinus issues (unknown) (no (unknown) (unknown) DME: [employer] (units (u nknown) date) unknown) (unknown) (no (unknown) (unknown) : 1980 (units (unknown) date) Acct:[id number] unknown) (unknown) (no (unknown) (unknown) Dept at (units (o wn) date) . unknown) (unknown) (no (unknown) (unknown) Details: (units (unkno wn) date) unknown) (unknown) (no (unknown) (unknown) Device data last (units (unknown) date) 60 days: unknown) (unknown) (no (unknown) (unknown) Device set (units (unk ) date) up:12/16/2021 unknown) (unknown) (no (unknown) (unknown) Documented By: (units (unknown) date) Jason Lilly unknown) 02/01/22 1034 (unknown) (no (unknown) (unknown) Draft (units (unkno wn) date) unknown) (unknown) (no (unknown) (unknown) Drowsy driving (units (unknown) date) handout made unknown) available. (unknown) (no (unknown) (unknown) Ears: hearing (units ( unknown) date) grossly normal unknown) bilaterally (unknown) (no (unknown) (unknown) Effort + (units (o wn) date) Inspection: normal unknown) respiratory effort, able to speak in complete (unknown) (no (unknown) (unknown) Ensure adequate (units (unknown) date) exposure to unknown) natural light. This is particularly important for (unknown) (no (unknown) (unknown) [place] Score: 9 (units (unknown) date) unknown) (unknown) (no (unknown) (unknown) [place] (units (unkno wn) date) Sleepiness Scale unknown) score of 11/18 on [place]. This can be seen secondary (unknown) (no (unknown) (unknown) [place] (units (unkno wn) date) Sleepiness Scale unknown) (unknown) (no (unknown) (unknown) Establish a (units (unk ) date) regular relaxing unknown) bedtime routine. Try to avoid emotionally upsetting (unknown) (no (unknown) (unknown) Exam Narrative (units (unknown) date) unknown) (unknown) (no (unknown) (unknown) Exam Narrative: (units (unknown) date) unknown) (unknown) (no (unknown) (unknown) Exam (units (unkno wn) date) unknown) (unknown) (no (unknown) (unknown) Eyes (units (unkno wn) date) unknown) (unknown) (no (unknown) (unknown) Food can be (units (un known) date) disruptive right unknown) before sleep; stay away from large meals close to (unknown) (no (unknown) (unknown) General: (units (unkno wn) date) cooperative, unknown) comfortable and no acute distress (unknown) (no (unknown) (unknown) General: patient (units (unknown) date) alert, patient unknown) awake and patient oriented x3 (unknown) (no (unknown) (unknown) Get regular (units (un known) date) moderate exercise unknown) (30 minutes, 3x/week) (unknown) (no (unknown) (unknown) HENMT (units (unkno wn) date) unknown) (unknown) (no (unknown) (unknown) HPI Sleep Follow (units (unknown) date) Up unknown) (unknown) (no (unknown) (unknown) HPI (units (unkno wn) date) unknown) (unknown) (no (unknown) (unknown) Head: normal to (units (unknown) date) inspection unknown) (unknown) (no (unknown) (unknown) Height 5 ft 11 in (units (unknown) date) unknown) (unknown) (no (unknown) (unknown) Implications of (units (unknown) date) these findings unknown) were discussed. Next steps were discussed. Given (unknown) (no (unknown) (unknown) Intake (units (unkno wn) date) unknown) (unknown) (no (unknown) (unknown) Light exposure (units (unknown) date) during the day unknown) helps maintain a healthy sleep-wake cycle. In (unknown) (no (unknown) (unknown) Loc: SLEEP (units (unk nown) date) unknown) (unknown) (no (unknown) (unknown) Lying down in the (units (unknown) date) afternoon: 2 = unknown) Moderate (unknown) (no (unknown) (unknown) Make sure that the (units (unknown) date) sleep environment unknown) is pleasant and relaxing. The bed should be (unknown) (no (unknown) (unknown) Mallampati score (units (unknown) date) of IV. Diagnostic unknown) sleep study was consistent with less than (unknown) (no (unknown) (unknown) Moderate chance (units (unknown) date) of dozing or unknown) sleeping, 3 = High chance of dozing or sleeping (unknown) (no (unknown) (unknown) Mood: congruent (units (unknown) date) mood unknown) (unknown) (no (unknown) (unknown) Neck (units (unkno wn) date) unknown) (unknown) (no (unknown) (unknown) Neck: normal (units (u nknown) date) visual inspection unknown) (unknown) (no (unknown) (unknown) Neuro (units (unkno wn) date) unknown) (unknown) (no (unknown) (unknown) No Known Drug (units ( unknown) date) Allergies Allergy unknown) (Verified 02/01/22 10:49) (unknown) (no (unknown) (unknown) PFSH (units (unkno wn) date) unknown) (unknown) (no (unknown) (unknown) Pain scale (units (unk nown) date) (1-10): 4 unknown) (unknown) (no (unknown) (unknown) Pain (units (unkno wn) date) unknown) (unknown) (no (unknown) (unknown) Patient has a (units ( unknown) date) history of chronic unknown) snoring. Positional therapy and the use of (unknown) (no (unknown) (unknown) Patient (units (unkno wn) date) instructed to use unknown) scheduled naps as needed for drowsiness safety (unknown) (no (unknown) (unknown) Patient (units (unkno wn) date) prescribed unknown) continued CPAP therapy at 9-15 cwp. No changes made today. (unknown) (no (unknown) (unknown) Patient reports a (units (unknown) date) history of snoring unknown) and a disturbed sleep pattern. There is (unknown) (no (unknown) (unknown) Patient reports (units (unknown) date) symptoms of unknown) chronic insomnia for more than 3 months as evidenced (unknown) (no (unknown) (unknown) Patient was (units (un known) date) encouraged to unknown) maintain PAP usage at a minimum of 4 hours a night, (unknown) (no (unknown) (unknown) Patient was (units (un known) date) instructed to unknown) avoid driving or operating heavy machinery when (unknown) (no (unknown) (unknown) Patient's (units (unkno wn) date) diagnostic sleep unknown) study was consistent with less than significant sleep (unknown) (no (unknown) (unknown) Patient: (units (unkno wn) date) Yadira Arrieta MR#: unknown) [id number] (unknown) (no (unknown) (unknown) Plan (units (unkno wn) date) unknown) (unknown) (no (unknown) (unknown) Position Sitting (units (unknown) date) unknown) (unknown) (no (unknown) (unknown) Positional (units (unk nown) date) therapy as needed. unknown) (unknown) (no (unknown) (unknown) Prescription (units (u nknown) date) written for unknown) renewal of PAP supplies; (unknown) (no (unknown) (unknown) Properly timed (units (unknown) date) exercise can unknown) promote good sleep. Vigorous exercise should be (unknown) (no (unknown) (unknown) Psych (units (unkno wn) date) unknown) (unknown) (no (unknown) (unknown) Pulse 73 (units (unkno wn) date) unknown) (unknown) (no (unknown) (unknown) Pulse Source (units (u nknown) date) Monitor unknown) (unknown) (no (unknown) (unknown) Questionnaires (units (unknown) date) unknown) (unknown) (no (unknown) (unknown) RDIs have been (units (unknown) date) 14.6, 19.1(with a unknown) little REM sleep) and 18.4. This is consistent (unknown) (no (unknown) (unknown) Reason For Visit (units (unknown) date) unknown) (unknown) (no (unknown) (unknown) Resp (units (unkno wn) date) unknown) (unknown) (no (unknown) (unknown) Respiration 16 (units (unknown) date) unknown) (unknown) (no (unknown) (unknown) Return visit in 6 (units (unknown) date) months to assess unknown) continued response to PAP therapy Patient was (unknown) (no (unknown) (unknown) Sclera: sclerae (units (unknown) date) normal unknown) (unknown) (no (unknown) (unknown) Signed By: (units (unk nown) date) unknown) (unknown) (no (unknown) (unknown) Sitting and (units (un known) date) Readin = unknown) Moderate (unknown) (no (unknown) (unknown) Sitting and (units (un known) date) talking to unknown) someone: 0 = Never (None) (unknown) (no (unknown) (unknown) Sitting inactive (units (unknown) date) in a public place: unknown) 0 = Never (None) (unknown) (no (unknown) (unknown) Sitting quietly (units (unknown) date) after lunch (no unknown) alcohol): 2 = Moderate (unknown) (no (unknown) (unknown) Sleep Visit (units (un known) date) unknown) (unknown) (no (unknown) (unknown) [facility]) (unknown) (no (unknown) (unknown) Smoking Status: (units (unknown) date) Never smoker unknown) (unknown) (no (unknown) (unknown) Speech and (units (unk n) date) Movement: speech unknown) and movement normal (unknown) (no (unknown) (unknown) Speech: speech (units (unknown) date) normal unknown) (unknown) (no (unknown) (unknown) Stopped for a few (units (unknown) date) minutes in unknown) traffic: 1 = Slight (unknown) (no (unknown) (unknown) Temp 97.2 F L (units ( unknown) date) unknown) (unknown) (no (unknown) (unknown) Temp Source (units (un known) date) Temporal Artery unknown) Scan (unknown) (no (unknown) (unknown) The basics of the (units (unknown) date) pathophysiology of unknown) sleep apnea and the effect on sleep in (unknown) (no (unknown) (unknown) The patient (units (un known) date) reports symptoms unknown) of excessive daytime sleepiness as evidenced by (unknown) (no (unknown) (unknown) This can be seen (units (unknown) date) secondary to sleep unknown) apnea, depression, medical conditions or can (unknown) (no (unknown) (unknown) This is (units (unkno wn) date) consistent with unknown) nocturnal respiratory disturbance or UARS. CPAP was (unknown) (no (unknown) (unknown) This note may (units ( unknown) date) have been all or unknown) partially generated using voice recognition (unknown) (no (unknown) (unknown) This will be (units (u nknown) date) reassessed after unknown) her nocturnal respiratory disturbance has been (unknown) (no (unknown) (unknown) Tobacco + (units (unkn own) date) Substance Use unknown) (unknown) (no (unknown) (unknown) Tobacco Status (units (unknown) date) unknown) (unknown) (no (unknown) (unknown) Treatment (units (unkn own) date) Effects: Pap unknown) Treatment Response/Side Effects: adherent to current PAP (unknown) (no (unknown) (unknown) Treatment (units (unkn own) date) Response/Side unknown) Affects (unknown) (no (unknown) (unknown) 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 History of snoring and a disturbed (unknown) (no (unknown) (unknown) Usage: 56.7% (34 (units (unknown) date) days) with 51.7% unknown) greater than 4 hours. Leak 9 seconds. (unknown) (no (unknown) (unknown) Use of nasal (units (u nknown) date) steroids and unknown) montelukast was also reviewed. This has been noted to (unknown) (no (unknown) (unknown) Visit Reasons: 2M (units (unknown) date) comp unknown) (unknown) (no (unknown) (unknown) Visit type (FU): (units (unknown) date) follow up of [facility] unknown) therapy (Follow up UARS) Follow up evaluation (unknown) (no (unknown) (unknown) Vitals (units (unkno wn) date) unknown) (unknown) (no (unknown) (unknown) Watching TV: 2 = (units (unknown) date) Moderate unknown) (unknown) (no (unknown) (unknown) Weight 287 lb (units ( unknown) date) unknown) (unknown) (no (unknown) (unknown) While alcohol is (units (unknown) date) well known to unknown) speed the onset of sleep, it disrupts sleep in (unknown) (no (unknown) (unknown) a repeat sleep (units (unknown) date) study with the use unknown) of a hypnotic was indicated. this third study (unknown) (no (unknown) (unknown) activities, you (units (unknown) date) may have more unknown) problems getting back to sleep during the night. (unknown) (no (unknown) (unknown) addition, (units (unkn own) date) avoiding nighttime unknown) bright light exposure, which can occur with many (unknown) (no (unknown) (unknown) addressed. (units (unk nown) date) unknown) (unknown) (no (unknown) (unknown) again showed (units (un known) date) little to no rem unknown) sleep, poor quality sleep and an elevated RDI. the (unknown) (no (unknown) (unknown) also a history of (units (unknown) date) depression and unknown) chronic insomnia with a Mallampati score of IV. (unknown) (no (unknown) (unknown) and her elevated (units (unknown) date) RDI, a repeat unknown) sleep study with the use of a hypnotic was (unknown) (no (unknown) (unknown) and wakefulness. (units (unknown) date) Scheduled napping unknown) may be considered if appropriate for the (unknown) (no (unknown) (unknown) apnea, no (units (unkn own) date) snoring, some unknown) desaturation events and no significant leg movements. (unknown) (no (unknown) (unknown) approved. (units (unkn own) date) unknown) (unknown) (no (unknown) (unknown) be an independent (units (unknown) date) problem. Sleep unknown) hygiene and sleep schedules were discussed. (unknown) (no (unknown) (unknown) be moderate on (units (unknown) date) all her sleep unknown) studies. we will continue to follow going forward. (unknown) (no (unknown) (unknown) bedtime. Also (units (u nknown) date) dietary changes unknown) can cause sleep problems, if someone is struggling (unknown) (no (unknown) (unknown) bring your (units (unk nown) date) problems to bed. unknown) (unknown) (no (unknown) (unknown) but increased (units ( unknown) date) benefit from more unknown) usage was also explained. (unknown) (no (unknown) (unknown) but overall likes (units (unknown) date) using the machine. unknown) Reports no issues with the machine, mask or (unknown) (no (unknown) (unknown) by trouble (units (unk nown) date) falling asleep, unknown) trouble staying asleep and non-restorative sleep. (unknown) (no (unknown) (unknown) clinical history (units (unknown) date) it was determined unknown) that a diagnostic sleep study was indicated. (unknown) (no (unknown) (unknown) comfortable, the (units (unknown) date) room should be unknown) quiet, not too hot or cold, or too bright. (unknown) (no (unknown) (unknown) continue. (units (unkn own) date) unknown) (unknown) (no (unknown) (unknown) conversations and (units (unknown) date) activities before unknown) trying to go to sleep. Don't dwell on, or (unknown) (no (unknown) (unknown) daytime sleeping (units (unknown) date) complaints of unknown) sleepiness at work and drowsy driving with an (unknown) (no (unknown) (unknown) dishes. And, (units (u nknown) date) remember, unknown) chocolate has caffeine. (unknown) (no (unknown) (unknown) done before bed (units (unknown) date) to help initiate a unknown) restful night's sleep. (unknown) (no (unknown) (unknown) drowsy. (units (unkno wn) date) unknown) (unknown) (no (unknown) (unknown) elevated RDI. the (units (unknown) date) RDIs have been unknown) 14.6, 19.1(with a little REM sleep) and 18.4. (unknown) (no (unknown) (unknown) general were (units (u nknown) date) discussed at unknown) length. After review of the physical findings and (unknown) (no (unknown) (unknown) have occurred. If (units (unknown) date) there are any unknown) questions, please contact the Medical Records (unknown) (no (unknown) (unknown) her sleep issues, (units (unknown) date) low REM sleep unknown) amount on the sleep study and her elevated RDI, (unknown) (no (unknown) (unknown) indicated to (units (u nknown) date) determine to what unknown) extent this is contributing to her poor quality (unknown) (no (unknown) (unknown) indicated. Study (units (unknown) date) again showed unknown) little to no rem sleep, poor quality sleep and an (unknown) (no (unknown) (unknown) initiated. (units (unk nown) date) unknown) (unknown) (no (unknown) (unknown) instructed to (units ( unknown) date) return sooner if unknown) any questions or concerns arise. (unknown) (no (unknown) (unknown) leg movements. (units (unknown) date) Given her sleep unknown) issues, low REM sleep amount on the sleep study (unknown) (no (unknown) (unknown) listen to the (units ( unknown) date) radio, or read as unknown) if you associate falling asleep with these (unknown) (no (unknown) (unknown) may occur. (units (unk nown) date) Occasional unknown) wrong-word or 'sound-alike' substitutions may have (unknown) (no (unknown) (unknown) nasal saline and (units (unknown) date) internal and unknown) external nasal dilator therapies were discussed. (unknown) (no (unknown) (unknown) occurred due to (units (unknown) date) the inherent unknown) limitations of voice recognition software. Please (unknown) (no (unknown) (unknown) of [facility] therapy: (units (unknown) date) CPAP (5-15 cwp) unknown) (unknown) (no (unknown) (unknown) older people who (units (unknown) date) may not venture unknown) outside as frequently as children and adults. (unknown) (no (unknown) (unknown) once her (units (unkno wn) date) nocturnal unknown) respiratory disturbance has been addressed. (unknown) (no (unknown) (unknown) optimal sleep (units ( unknown) date) schedule. unknown) (unknown) (no (unknown) (unknown) personal (units (unkno wn) date) electronic unknown) devices, can also help maintain a healthy sleep-wake cycle. (unknown) (no (unknown) (unknown) pressure. Showing (units (unknown) date) positive unknown) improvement as evidenced by decreased daytime (unknown) (no (unknown) (unknown) problem. Risks and (units (unknown) date) symptoms of unknown) drowsiness were reviewed. This will be reassessed (unknown) (no (unknown) (unknown) read the note (units ( unknown) date) carefully and unknown) recognize, using context, where these substitutions (unknown) (no (unknown) (unknown) sentences and no (units (unknown) date) audible wheezes unknown) (unknown) (no (unknown) (unknown) significant sleep (units (unknown) date) apnea, no snoring, unknown) some desaturation events and no significant (unknown) (no (unknown) (unknown) sleep and daytime (units (unknown) date) sleepiness. Her unknown) insurance will be contracted to determine if (unknown) (no (unknown) (unknown) sleep pattern. (units ( unknown) date) There is also a unknown) history of depression and chronic insomnia with a (unknown) (no (unknown) (unknown) sleepiness. She (units (unknown) date) is clearly unknown) benefitting from PAP therapy and is willing to (unknown) (no (unknown) (unknown) software. (units (unkn own) date) Although every unknown) effort is made to edit content, garde manger errors (unknown) (no (unknown) (unknown) taken in the (units (u nknown) date) morning or late unknown) afternoon. A relaxing exercise, like yoga, can be (unknown) (no (unknown) (unknown) the second half (units (unknown) date) as the body begins unknown) to metabolize the alcohol, causing arousal. (unknown) (no (unknown) (unknown) the therapy will (units (unknown) date) be covered. She is unknown) willing to proceed with PAP therapy if (unknown) (no (unknown) (unknown) to sleep apnea, (units (unknown) date) insomnia, unknown) depression, medical conditions or can be a primary (unknown) (no (unknown) (unknown) treatment (units (unkn own) date) improving on unknown) treatment (unknown) (no (unknown) (unknown) with a sleep (units (u nknown) date) problem, it's not unknown) a good time to start experimenting with spicy (unknown) (no (unknown) (unknown) with nocturnal (units (unknown) date) respiratory unknown) disturbance or UARS. Treatment with CPAP therapy is Result panel 5 (unknown) (no (unknown) (unknown) (no value) (units (unk nown) date) unknown) (unknown) (no (unknown) (unknown) (1) (units (unkno wn) date) Breathing-related unknown) sleep disorder: (unknown) (no (unknown) (unknown) (2) Insomnia: (units ( unknown) date) unknown) (unknown) (no (unknown) (unknown) (3) Excessive (units ( unknown) date) daytime unknown) sleepiness: (unknown) (no (unknown) (unknown) (4) History of (units (unknown) date) snoring: unknown) (unknown) (no (unknown) (unknown) 0 = Would never (units (unknown) date) doze or sleep, 1 = unknown) Slight chance of dozing or sleeping, 2 = (unknown) (no (unknown) (unknown) 02/01/22 (units (unkno wn) date) unknown) (unknown) (no (unknown) (unknown) 2: better (units (unkn own) date) unknown) (unknown) (no (unknown) (unknown) [id number] (units (unkno wn) date) unknown) (unknown) (no (unknown) (unknown) AHIflow: 1.4 (units (u nknown) date) unknown) (unknown) (no (unknown) (unknown) Adhere to regular (units (unknown) date) mealtime schedule, unknown) avoid snacking (unknown) (no (unknown) (unknown) Affect: normal (units (unknown) date) affect unknown) (unknown) (no (unknown) (unknown) Age/Sex: 41 / F (units (unknown) date) Date of Service: unknown) (unknown) (no (unknown) (unknown) Allergies (units (unkn own) date) unknown) (unknown) (no (unknown) (unknown) [place], [place] (units ( unknown) date) [id number] unknown) (unknown) (no (unknown) (unknown) Appearance: (units (un known) date) grossly normal unknown) (unknown) (no (unknown) (unknown) Assessment + Plan (units (unknown) date) unknown) (unknown) (no (unknown) (unknown) Assessment and (units (unknown) date) Plan: unknown) (unknown) (no (unknown) (unknown) Associate your bed (units (unknown) date) with sleep. It's unknown) not a good idea to use your bed to watch TV, (unknown) (no (unknown) (unknown) Attending Dr: (units ( unknown) date) Jason MADRIGAL unknown) (unknown) (no (unknown) (unknown) Attitude: (units (unkn own) date) cooperative unknown) (unknown) (no (unknown) (unknown) Auto CPAP set (units ( unknown) date) pressures: 5-15 unknown) CWP (unknown) (no (unknown) (unknown) Avoid alcohol (units ( unknown) date) after 4 pm unknown) (unknown) (no (unknown) (unknown) Avoid medications (units (unknown) date) which may unknown) interfere with sleep (unknown) (no (unknown) (unknown) Avoid random (units (u nknown) date) napping during the unknown) day; it can disturb the normal pattern of sleep (unknown) (no (unknown) (unknown) Avoid stimulants (units (unknown) date) such as caffeine, unknown) nicotine, and alcohol too close to bedtime. (unknown) (no (unknown) (unknown) Being a passenger (units (unknown) date) in a motor vehicle unknown) for an hour or so: 0 = Never (None) (unknown) (no (unknown) (unknown) Chief Complaint: (units (unknown) date) Follow up CPAP unknown) therapy for UARS (unknown) (no (unknown) (unknown) Clinical Course (units (unknown) date) unknown) (unknown) (no (unknown) (unknown) Cognition: normal (units (unknown) date) cognition unknown) (unknown) (no (unknown) (unknown) Condition is (units (u nknown) date) Onset: Chronic and unknown) ongoing condition (unknown) (no (unknown) (unknown) Conjunctivae: (units ( unknown) date) conjunctivae unknown) normal (unknown) (no (unknown) (unknown) Consider weaning (units (unknown) date) caffeine use, unknown) starting with no caffeine after 3pm (unknown) (no (unknown) (unknown) Const (units (unkno wn) date) unknown) (unknown) (no (unknown) (unknown) Currently using (units (unknown) date) CPAP 5-15 cwp. Has unknown) not been using regularly due to sinus issues (unknown) (no (unknown) (unknown) DME: [employer] (units (u nknown) date) unknown) (unknown) (no (unknown) (unknown) : 1980 (units (unknown) date) Acct:[id number] unknown) (unknown) (no (unknown) (unknown) Dept at (units (unkno wn) date) . unknown) (unknown) (no (unknown) (unknown) Details: (units (unkno wn) date) unknown) (unknown) (no (unknown) (unknown) Device data last (units (unknown) date) 60 days: unknown) (unknown) (no (unknown) (unknown) Device set (units (unk nown) date) up:12/16/2021 unknown) (unknown) (no (unknown) (unknown) Documented By: (units (unknown) date) Jason Lilly unknown) 02/01/22 1034 (unknown) (no (unknown) (unknown) Draft (units (unkno wn) date) unknown) (unknown) (no (unknown) (unknown) Drowsy driving (units (unknown) date) handout made unknown) available. (unknown) (no (unknown) (unknown) Ears: hearing (units ( unknown) date) grossly normal unknown) bilaterally (unknown) (no (unknown) (unknown) Effort + (units (unkno wn) date) Inspection: normal unknown) respiratory effort, able to speak in complete (unknown) (no (unknown) (unknown) Ensure adequate (units (unknown) date) exposure to unknown) natural light. This is particularly important for (unknown) (no (unknown) (unknown) [place] Score: 9 (units (unknown) date) unknown) (unknown) (no (unknown) (unknown) [place] (units (unkno wn) date) Sleepiness Scale unknown) score of 11/18 on [place]. This can be seen secondary (unknown) (no (unknown) (unknown) [place] (units (unkno wn) date) Sleepiness Scale unknown) (unknown) (no (unknown) (unknown) Establish a (units (unk nown) date) regular relaxing unknown) bedtime routine. Try to avoid emotionally upsetting (unknown) (no (unknown) (unknown) Exam Narrative (units (unknown) date) unknown) (unknown) (no (unknown) (unknown) Exam Narrative: (units (unknown) date) unknown) (unknown) (no (unknown) (unknown) Exam (units (unkno wn) date) unknown) (unknown) (no (unknown) (unknown) Eyes (units (unkno wn) date) unknown) (unknown) (no (unknown) (unknown) Food can be (units (un known) date) disruptive right unknown) before sleep; stay away from large meals close to (unknown) (no (unknown) (unknown) General: (units (unkno wn) date) cooperative, unknown) comfortable and no acute distress (unknown) (no (unknown) (unknown) General: patient (units (unknown) date) alert, patient unknown) awake and patient oriented x3 (unknown) (no (unknown) (unknown) Get regular (units (un known) date) moderate exercise unknown) (30 minutes, 3x/week) (unknown) (no (unknown) (unknown) HENMT (units (unkno wn) date) unknown) (unknown) (no (unknown) (unknown) HPI Sleep Follow (units (unknown) date) Up unknown) (unknown) (no (unknown) (unknown) HPI (units (unkno wn) date) unknown) (unknown) (no (unknown) (unknown) Head: normal to (units (unknown) date) inspection unknown) (unknown) (no (unknown) (unknown) Implications of (units (unknown) date) these findings unknown) were discussed. Next steps were discussed. Given (unknown) (no (unknown) (unknown) Intake (units (unkno wn) date) unknown) (unknown) (no (unknown) (unknown) Light exposure (units (unknown) date) during the day unknown) helps maintain a healthy sleep-wake cycle. In (unknown) (no (unknown) (unknown) Loc: SLEEP (units (unk nown) date) unknown) (unknown) (no (unknown) (unknown) Lying down in the (units (unknown) date) afternoon: 2 = unknown) Moderate (unknown) (no (unknown) (unknown) Make sure that the (units (unknown) date) sleep environment unknown) is pleasant and relaxing. The bed should be (unknown) (no (unknown) (unknown) Mallampati score (units (unknown) date) of IV. Diagnostic unknown) sleep study was consistent with less than (unknown) (no (unknown) (unknown) Moderate chance (units (unknown) date) of dozing or unknown) sleeping, 3 = High chance of dozing or sleeping (unknown) (no (unknown) (unknown) Mood: congruent (units (unknown) date) mood unknown) (unknown) (no (unknown) (unknown) Neck (units (unkno wn) date) unknown) (unknown) (no (unknown) (unknown) Neck: normal (units (u nknown) date) visual inspection unknown) (unknown) (no (unknown) (unknown) Neuro (units (unkno wn) date) unknown) (unknown) (no (unknown) (unknown) No Known Drug (units ( unknown) date) Allergies Allergy unknown) (Verified 02/01/22 10:49) (unknown) (no (unknown) (unknown) PFSH (units (unkno wn) date) unknown) (unknown) (no (unknown) (unknown) Pain scale (units (unk nown) date) (1-10): 4 unknown) (unknown) (no (unknown) (unknown) Pain (units (unkno wn) date) unknown) (unknown) (no (unknown) (unknown) Patient has a (units ( unknown) date) history of chronic unknown) snoring. Positional therapy and the use of (unknown) (no (unknown) (unknown) Patient (units (unkno wn) date) instructed to use unknown) scheduled naps as needed for drowsiness safety (unknown) (no (unknown) (unknown) Patient (units (unkno wn) date) prescribed unknown) continued CPAP therapy at 9-15 cwp. No changes made today. (unknown) (no (unknown) (unknown) Patient reports a (units (unknown) date) history of snoring unknown) and a disturbed sleep pattern. There is (unknown) (no (unknown) (unknown) Patient reports (units (unknown) date) difficulty falling unknown) asleep is occasional (improving) and (unknown) (no (unknown) (unknown) Patient reports (units (unknown) date) symptoms of unknown) chronic insomnia for more than 3 months as evidenced (unknown) (no (unknown) (unknown) Patient was (units (un known) date) encouraged to unknown) maintain PAP usage at a minimum of 4 hours a night, (unknown) (no (unknown) (unknown) Patient was (units (un known) date) instructed to unknown) avoid driving or operating heavy machinery when (unknown) (no (unknown) (unknown) Patient's (units (unkno wn) date) diagnostic sleep unknown) study was consistent with less than significant sleep (unknown) (no (unknown) (unknown) Patient: (units (unkno wn) date) Yadira Arrieta MR#: unknown) [id number] (unknown) (no (unknown) (unknown) Plan (units (unkno wn) date) unknown) (unknown) (no (unknown) (unknown) Positional (units (unk nown) date) therapy as needed. unknown) (unknown) (no (unknown) (unknown) Prescription (units (u nknown) date) written for unknown) renewal of PAP supplies; (unknown) (no (unknown) (unknown) Properly timed (units (unknown) date) exercise can unknown) promote good sleep. Vigorous exercise should be (unknown) (no (unknown) (unknown) Psych (units (unkno wn) date) unknown) (unknown) (no (unknown) (unknown) Questionnaires (units (unknown) date) unknown) (unknown) (no (unknown) (unknown) RDIs have been (units (unknown) date) 14.6, 19.1(with a unknown) little REM sleep) and 18.4. This is consistent (unknown) (no (unknown) (unknown) Reason For Visit (units (unknown) date) unknown) (unknown) (no (unknown) (unknown) Resp (units (unkno wn) date) unknown) (unknown) (no (unknown) (unknown) Return visit in 6 (units (unknown) date) months to assess unknown) continued response to PAP therapy Patient was (unknown) (no (unknown) (unknown) Sclera: sclerae (units (unknown) date) normal unknown) (unknown) (no (unknown) (unknown) Signed By: (units (unk nown) date) unknown) (unknown) (no (unknown) (unknown) Sitting and (units (un known) date) Readin = unknown) Moderate (unknown) (no (unknown) (unknown) Sitting and (units (un known) date) talking to unknown) someone: 0 = Never (None) (unknown) (no (unknown) (unknown) Sitting inactive (units (unknown) date) in a public place: unknown) 0 = Never (None) (unknown) (no (unknown) (unknown) Sitting quietly (units (unknown) date) after lunch (no unknown) alcohol): 2 = Moderate (unknown) (no (unknown) (unknown) Sleep Visit (units (un known) date) unknown) (unknown) (no (unknown) (unknown) [facility] unknown) (unknown) (no (unknown) (unknown) Smoking Status: (units (unknown) date) Never smoker unknown) (unknown) (no (unknown) (unknown) Speech and (units (unk nown) date) Movement: speech unknown) and movement normal (unknown) (no (unknown) (unknown) Speech: speech (units (unknown) date) normal unknown) (unknown) (no (unknown) (unknown) Stopped for a few (units (unknown) date) minutes in unknown) traffic: 1 = Slight (unknown) (no (unknown) (unknown) Symptoms (units (unkno wn) date) unknown) (unknown) (no (unknown) (unknown) The basics of the (units (unknown) date) pathophysiology of unknown) sleep apnea and the effect on sleep in (unknown) (no (unknown) (unknown) The patient (units (un known) date) reports symptoms unknown) of excessive daytime sleepiness as evidenced by (unknown) (no (unknown) (unknown) This can be seen (units (unknown) date) secondary to sleep unknown) apnea, depression, medical conditions or can (unknown) (no (unknown) (unknown) This is (units (unkno wn) date) consistent with unknown) nocturnal respiratory disturbance or UARS. CPAP was (unknown) (no (unknown) (unknown) This note may (units ( unknown) date) have been all or unknown) partially generated using voice recognition (unknown) (no (unknown) (unknown) This will be (units (u nknown) date) reassessed after unknown) her nocturnal respiratory disturbance has been (unknown) (no (unknown) (unknown) Tobacco + (units (unkn own) date) Substance Use unknown) (unknown) (no (unknown) (unknown) Tobacco Status (units (unknown) date) unknown) (unknown) (no (unknown) (unknown) Treatment (units (unkn own) date) Effects: Pap unknown) Treatment Response/Side Effects: adherent to current PAP (unknown) (no (unknown) (unknown) Treatment (units (unkn own) date) Response/Side unknown) Affects (unknown) (no (unknown) (unknown) 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 History of snoring and a disturbed (unknown) (no (unknown) (unknown) Usage: 56.7% (34 (units (unknown) date) days) with 51.7% unknown) greater than 4 hours. Leak 9 seconds. (unknown) (no (unknown) (unknown) Use of nasal (units (u nknown) date) steroids and unknown) montelukast was also reviewed. This has been noted to (unknown) (no (unknown) (unknown) Visit Reasons: 2M (units (unknown) date) comp unknown) (unknown) (no (unknown) (unknown) Visit type (FU): (units (unknown) date) follow up of [facility] unknown) therapy (Follow up UARS) Follow up evaluation (unknown) (no (unknown) (unknown) Watching TV: 2 = (units (unknown) date) Moderate unknown) (unknown) (no (unknown) (unknown) While alcohol is (units (unknown) date) well known to unknown) speed the onset of sleep, it disrupts sleep in (unknown) (no (unknown) (unknown) a repeat sleep (units (unknown) date) study with the use unknown) of a hypnotic was indicated. this third study (unknown) (no (unknown) (unknown) activities, you (units (unknown) date) may have more unknown) problems getting back to sleep during the night. (unknown) (no (unknown) (unknown) addition, (units (unkn own) date) avoiding nighttime unknown) bright light exposure, which can occur with many (unknown) (no (unknown) (unknown) addressed. (units (unk nown) date) unknown) (unknown) (no (unknown) (unknown) again showed (units (un known) date) little to no rem unknown) sleep, poor quality sleep and an elevated RDI. the (unknown) (no (unknown) (unknown) also a history of (units (unknown) date) depression and unknown) chronic insomnia with a Mallampati score of IV. (unknown) (no (unknown) (unknown) and her elevated (units (unknown) date) RDI, a repeat unknown) sleep study with the use of a hypnotic was (unknown) (no (unknown) (unknown) and wakefulness. (units (unknown) date) Scheduled napping unknown) may be considered if appropriate for the (unknown) (no (unknown) (unknown) apnea, no (units (unkn own) date) snoring, some unknown) desaturation events and no significant leg movements. (unknown) (no (unknown) (unknown) approved. (units (unkn own) date) unknown) (unknown) (no (unknown) (unknown) be an independent (units (unknown) date) problem. Sleep unknown) hygiene and sleep schedules were discussed. (unknown) (no (unknown) (unknown) be moderate on (units (unknown) date) all her sleep unknown) studies. we will continue to follow going forward. (unknown) (no (unknown) (unknown) bedtime. Also (units (u nknown) date) dietary changes unknown) can cause sleep problems, if someone is struggling (unknown) (no (unknown) (unknown) being registered (units (unknown) date) for unknown unknown) reason. Reports no issues with the machine, mask or (unknown) (no (unknown) (unknown) bring your (units (unk nown) date) problems to bed. unknown) (unknown) (no (unknown) (unknown) but increased (units ( unknown) date) benefit from more unknown) usage was also explained. (unknown) (no (unknown) (unknown) but overall likes (units (unknown) date) using the machine. unknown) She also states some of the days were not (unknown) (no (unknown) (unknown) by trouble (units (unk nown) date) falling asleep, unknown) trouble staying asleep and non-restorative sleep. (unknown) (no (unknown) (unknown) clinical history (units (unknown) date) it was determined unknown) that a diagnostic sleep study was indicated. (unknown) (no (unknown) (unknown) comfortable, the (units (unknown) date) room should be unknown) quiet, not too hot or cold, or too bright. (unknown) (no (unknown) (unknown) conversations and (units (unknown) date) activities before unknown) trying to go to sleep. Don't dwell on, or (unknown) (no (unknown) (unknown) daytime sleeping (units (unknown) date) complaints of unknown) sleepiness at work and drowsy driving with an (unknown) (no (unknown) (unknown) decreased daytime (units (unknown) date) sleepiness. She is unknown) clearly benefitting from PAP therapy and (unknown) (no (unknown) (unknown) difficulty (units (unk nown) date) staying asleep unknown) (unknown) (no (unknown) (unknown) dishes. And, (units (u nknown) date) remember, unknown) chocolate has caffeine. (unknown) (no (unknown) (unknown) done before bed (units (unknown) date) to help initiate a unknown) restful night's sleep. (unknown) (no (unknown) (unknown) drowsy. (units (unkno wn) date) unknown) (unknown) (no (unknown) (unknown) elevated RDI. the (units (unknown) date) RDIs have been unknown) 14.6, 19.1(with a little REM sleep) and 18.4. (unknown) (no (unknown) (unknown) general were (units (u nknown) date) discussed at unknown) length. After review of the physical findings and (unknown) (no (unknown) (unknown) have occurred. If (units (unknown) date) there are any unknown) questions, please contact the Medical Records (unknown) (no (unknown) (unknown) her sleep issues, (units (unknown) date) low REM sleep unknown) amount on the sleep study and her elevated RDI, (unknown) (no (unknown) (unknown) indicated to (units (u nknown) date) determine to what unknown) extent this is contributing to her poor quality (unknown) (no (unknown) (unknown) indicated. Study (units (unknown) date) again showed unknown) little to no rem sleep, poor quality sleep and an (unknown) (no (unknown) (unknown) initiated. (units (unk nown) date) unknown) (unknown) (no (unknown) (unknown) instructed to (units ( unknown) date) return sooner if unknown) any questions or concerns arise. (unknown) (no (unknown) (unknown) is willing to (units ( unknown) date) continue. unknown) (unknown) (no (unknown) (unknown) leg movements. (units (unknown) date) Given her sleep unknown) issues, low REM sleep amount on the sleep study (unknown) (no (unknown) (unknown) listen to the (units ( unknown) date) radio, or read as unknown) if you associate falling asleep with these (unknown) (no (unknown) (unknown) may occur. (units (unk nown) date) Occasional unknown) wrong-word or 'sound-alike' substitutions may have (unknown) (no (unknown) (unknown) nasal saline and (units (unknown) date) internal and unknown) external nasal dilator therapies were discussed. (unknown) (no (unknown) (unknown) occurred due to (units (unknown) date) the inherent unknown) limitations of voice recognition software. Please (unknown) (no (unknown) (unknown) of [facility] therapy: (units (unknown) date) CPAP (5-15 cwp) unknown) (unknown) (no (unknown) (unknown) older people who (units (unknown) date) may not venture unknown) outside as frequently as children and adults. (unknown) (no (unknown) (unknown) on PAP well, sleep (units (unknown) date) quality well and unknown) daytime sleepiness Daytime Sleepiness Branch (unknown) (no (unknown) (unknown) once her (units (unkno wn) date) nocturnal unknown) respiratory disturbance has been addressed. (unknown) (no (unknown) (unknown) optimal sleep (units ( unknown) date) schedule. unknown) (unknown) (no (unknown) (unknown) personal (units (unkno wn) date) electronic unknown) devices, can also help maintain a healthy sleep-wake cycle. (unknown) (no (unknown) (unknown) pressure. Showing (units (unknown) date) positive unknown) improvement as evidenced by better sleep and (unknown) (no (unknown) (unknown) problem. Risks and (units (unknown) date) symptoms of unknown) drowsiness were reviewed. This will be reassessed (unknown) (no (unknown) (unknown) read the note (units ( unknown) date) carefully and unknown) recognize, using context, where these substitutions (unknown) (no (unknown) (unknown) sentences and no (units (unknown) date) audible wheezes unknown) (unknown) (no (unknown) (unknown) significant sleep (units (unknown) date) apnea, no snoring, unknown) some desaturation events and no significant (unknown) (no (unknown) (unknown) sleep and daytime (units (unknown) date) sleepiness. Her unknown) insurance will be contracted to determine if (unknown) (no (unknown) (unknown) sleep pattern. (units ( unknown) date) There is also a unknown) history of depression and chronic insomnia with a (unknown) (no (unknown) (unknown) software. (units (unkn own) date) Although every unknown) effort is made to edit content, garde manger errors (unknown) (no (unknown) (unknown) taken in the (units (u nknown) date) morning or late unknown) afternoon. A relaxing exercise, like yoga, can be (unknown) (no (unknown) (unknown) the second half (units (unknown) date) as the body begins unknown) to metabolize the alcohol, causing arousal. (unknown) (no (unknown) (unknown) the therapy will (units (unknown) date) be covered. She is unknown) willing to proceed with PAP therapy if (unknown) (no (unknown) (unknown) to sleep apnea, (units (unknown) date) insomnia, unknown) depression, medical conditions or can be a primary (unknown) (no (unknown) (unknown) treatment (units (unkn own) date) improving on unknown) treatment (unknown) (no (unknown) (unknown) with a sleep (units (u nknown) date) problem, it's not unknown) a good time to start experimenting with spicy (unknown) (no (unknown) (unknown) with nocturnal (units (unknown) date) respiratory unknown) disturbance or UARS. Treatment with CPAP therapy is Result panel 6 (unknown) (no (unknown) (unknown) (no value) (units (unk nown) date) unknown) (unknown) (no (unknown) (unknown) (1) (units (unkno wn) date) Breathing-related unknown) sleep disorder: (unknown) (no (unknown) (unknown) (2) Insomnia: (units ( unknown) date) unknown) (unknown) (no (unknown) (unknown) (3) Excessive (units ( unknown) date) daytime unknown) sleepiness: (unknown) (no (unknown) (unknown) (4) History of (units (unknown) date) snoring: unknown) (unknown) (no (unknown) (unknown) (vestibular (units (un known) date) migraines, unknown) improved), reports trouble consentrating/focu sing durng (unknown) (no (unknown) (unknown) 0 = Would never (units (unknown) date) doze or sleep, 1 = unknown) Slight chance of dozing or sleeping, 2 = (unknown) (no (unknown) (unknown) 02/01/22 (units (unkno wn) date) unknown) (unknown) (no (unknown) (unknown) 2: better (units (unkn own) date) unknown) (unknown) (no (unknown) (unknown) [id number] (units (unkno wn) date) unknown) (unknown) (no (unknown) (unknown) AHIflow: 1.4 (units (u nknown) date) unknown) (unknown) (no (unknown) (unknown) Adhere to regular (units (unknown) date) mealtime schedule, unknown) avoid snacking (unknown) (no (unknown) (unknown) Affect: normal (units (unknown) date) affect unknown) (unknown) (no (unknown) (unknown) Age/Sex: 41 / F (units (unknown) date) Date of Service: unknown) (unknown) (no (unknown) (unknown) Allergies (units (unkn own) date) unknown) (unknown) (no (unknown) (unknown) [place], [place] (units ( unknown) date) [id number] unknown) (unknown) (no (unknown) (unknown) Appearance: (units (un known) date) grossly normal unknown) (unknown) (no (unknown) (unknown) Assessment + Plan (units (unknown) date) unknown) (unknown) (no (unknown) (unknown) Assessment and (units (unknown) date) Plan: unknown) (unknown) (no (unknown) (unknown) Associate your bed (units (unknown) date) with sleep. It's unknown) not a good idea to use your bed to watch TV, (unknown) (no (unknown) (unknown) Attending Dr: (units ( unknown) date) Jason MADRIGAL unknown) (unknown) (no (unknown) (unknown) Attitude: (units (unkn own) date) cooperative unknown) (unknown) (no (unknown) (unknown) Auto CPAP set (units ( unknown) date) pressures: 5-15 unknown) CWP (unknown) (no (unknown) (unknown) Avoid alcohol (units ( unknown) date) after 4 pm unknown) (unknown) (no (unknown) (unknown) Avoid medications (units (unknown) date) which may unknown) interfere with sleep (unknown) (no (unknown) (unknown) Avoid random (units (u nknown) date) napping during the unknown) day; it can disturb the normal pattern of sleep (unknown) (no (unknown) (unknown) Avoid stimulants (units (unknown) date) such as caffeine, unknown) nicotine, and alcohol too close to bedtime. (unknown) (no (unknown) (unknown) Being a passenger (units (unknown) date) in a motor vehicle unknown) for an hour or so: 0 = Never (None) (unknown) (no (unknown) (unknown) Caffeine Branch: (units (unknown) date) 1-5 servings a unknown) day, reports stimulant therapy (Vyvanse) and (unknown) (no (unknown) (unknown) Cardiac (units (unkno wn) date) unknown) (unknown) (no (unknown) (unknown) Chief Complaint: (units (unknown) date) Follow up CPAP unknown) therapy for UARS (unknown) (no (unknown) (unknown) Clinical Course (units (unknown) date) unknown) (unknown) (no (unknown) (unknown) Cognition: normal (units (unknown) date) cognition unknown) (unknown) (no (unknown) (unknown) Condition is (units (u nknown) date) Onset: Chronic and unknown) ongoing condition (unknown) (no (unknown) (unknown) Conjunctivae: (units ( unknown) date) conjunctivae unknown) normal (unknown) (no (unknown) (unknown) Consider weaning (units (unknown) date) caffeine use, unknown) starting with no caffeine after 3pm (unknown) (no (unknown) (unknown) Const (units (unkno wn) date) unknown) (unknown) (no (unknown) (unknown) Currently using (units (unknown) date) CPAP 5-15 cwp. Has unknown) not been using regularly due to sinus issues (unknown) (no (unknown) (unknown) DME: [employer] (units (u nknown) date) unknown) (unknown) (no (unknown) (unknown) : 1980 (units (unknown) date) Acct:[id number] unknown) (unknown) (no (unknown) (unknown) Denies bloating (units (unknown) date) on CPAP unknown) (unknown) (no (unknown) (unknown) Denies dyspnea at (units (unknown) date) night unknown) (unknown) (no (unknown) (unknown) Dept at (units (unkno wn) date) . unknown) (unknown) (no (unknown) (unknown) Details: (units (unkno wn) date) unknown) (unknown) (no (unknown) (unknown) Device data last (units (unknown) date) 60 days: unknown) (unknown) (no (unknown) (unknown) Device set (units (unk nown) date) up:12/16/2021 unknown) (unknown) (no (unknown) (unknown) Documented By: (units (unknown) date) Jason Lilly unknown) 02/01/22 1034 (unknown) (no (unknown) (unknown) Draft (units (unkno wn) date) unknown) (unknown) (no (unknown) (unknown) Drowsy driving (units (unknown) date) handout made unknown) available. (unknown) (no (unknown) (unknown) Ears: hearing (units ( unknown) date) grossly normal unknown) bilaterally (unknown) (no (unknown) (unknown) Effort + (units (unkno wn) date) Inspection: normal unknown) respiratory effort, able to speak in complete (unknown) (no (unknown) (unknown) Ensure adequate (units (unknown) date) exposure to unknown) natural light. This is particularly important for (unknown) (no (unknown) (unknown) [place] Score: 9 (units (unknown) date) unknown) (unknown) (no (unknown) (unknown) [place] (units (unkno wn) date) Sleepiness Scale unknown) score of 11/18 on Vyvanse. This can be seen secondary (unknown) (no (unknown) (unknown) [place] (units (unkno wn) date) Sleepiness Scale unknown) (unknown) (no (unknown) (unknown) Establish a (units (unk nown) date) regular relaxing unknown) bedtime routine. Try to avoid emotionally upsetting (unknown) (no (unknown) (unknown) Exacerbating/Matteo (units (unknown) date) viating Factors unknown) (unknown) (no (unknown) (unknown) Exam Narrative (units (unknown) date) unknown) (unknown) (no (unknown) (unknown) Exam Narrative: (units (unknown) date) unknown) (unknown) (no (unknown) (unknown) Exam (units (unkno wn) date) unknown) (unknown) (no (unknown) (unknown) Eyes (units (unkno wn) date) unknown) (unknown) (no (unknown) (unknown) Food can be (units (un known) date) disruptive right unknown) before sleep; stay away from large meals close to (unknown) (no (unknown) (unknown) GI (units (unkno wn) date) unknown) (unknown) (no (unknown) (unknown) General: (units (unkno wn) date) cooperative, unknown) comfortable and no acute distress (unknown) (no (unknown) (unknown) General: patient (units (unknown) date) alert, patient unknown) awake and patient oriented x3 (unknown) (no (unknown) (unknown) Get regular (units (un known) date) moderate exercise unknown) (30 minutes, 3x/week) (unknown) (no (unknown) (unknown) HENMT (units (unkno wn) date) unknown) (unknown) (no (unknown) (unknown) HPI Sleep Follow (units (unknown) date) Up unknown) (unknown) (no (unknown) (unknown) HPI (units (unkno wn) date) unknown) (unknown) (no (unknown) (unknown) Head: normal to (units (unknown) date) inspection unknown) (unknown) (no (unknown) (unknown) Implications of (units (unknown) date) these findings unknown) were discussed. Next steps were discussed. Given (unknown) (no (unknown) (unknown) Intake (units (unkno wn) date) unknown) (unknown) (no (unknown) (unknown) Light exposure (units (unknown) date) during the day unknown) helps maintain a healthy sleep-wake cycle. In (unknown) (no (unknown) (unknown) Loc: SLEEP (units (unk nown) date) unknown) (unknown) (no (unknown) (unknown) Lying down in the (units (unknown) date) afternoon: 2 = unknown) Moderate (unknown) (no (unknown) (unknown) Make sure that the (units (unknown) date) sleep environment unknown) is pleasant and relaxing. The bed should be (unknown) (no (unknown) (unknown) Mallampati score (units (unknown) date) of IV. Diagnostic unknown) sleep study was consistent with less than (unknown) (no (unknown) (unknown) Moderate chance (units (unknown) date) of dozing or unknown) sleeping, 3 = High chance of dozing or sleeping (unknown) (no (unknown) (unknown) Mood: congruent (units (unknown) date) mood unknown) (unknown) (no (unknown) (unknown) Neck (units (unkno wn) date) unknown) (unknown) (no (unknown) (unknown) Neck: normal (units (u nknown) date) visual inspection unknown) (unknown) (no (unknown) (unknown) Neuro (units (unkno wn) date) unknown) (unknown) (no (unknown) (unknown) No Known Drug (units ( unknown) date) Allergies Allergy unknown) (Verified 02/01/22 10:49) (unknown) (no (unknown) (unknown) PFSH (units (unkno wn) date) unknown) (unknown) (no (unknown) (unknown) Pain scale (units (unk nown) date) (1-10): 4 unknown) (unknown) (no (unknown) (unknown) Pain (units (unkno wn) date) unknown) (unknown) (no (unknown) (unknown) Patient has a (units ( unknown) date) history of chronic unknown) snoring. Positional therapy and the use of (unknown) (no (unknown) (unknown) Patient (units (unkno wn) date) instructed to use unknown) scheduled naps as needed for drowsiness safety (unknown) (no (unknown) (unknown) Patient (units (unkno wn) date) prescribed unknown) continued CPAP therapy at 9-15 cwp. No changes made today. (unknown) (no (unknown) (unknown) Patient reports a (units (unknown) date) history of snoring unknown) and a disturbed sleep pattern. There is (unknown) (no (unknown) (unknown) Patient reports (units (unknown) date) alcohol Sleep unknown) Alcohol Branch: never, reports caffeine Sleep (unknown) (no (unknown) (unknown) Patient reports (units (unknown) date) difficulty falling unknown) asleep is occasional (improving), difficulty (unknown) (no (unknown) (unknown) Patient reports (units (unknown) date) symptoms of unknown) chronic insomnia for more than 3 months as evidenced (unknown) (no (unknown) (unknown) Patient was (units (un known) date) encouraged to unknown) maintain PAP usage at a minimum of 4 hours a night, (unknown) (no (unknown) (unknown) Patient was (units (un known) date) instructed to unknown) avoid driving or operating heavy machinery when (unknown) (no (unknown) (unknown) Patient's (units (unkno wn) date) diagnostic sleep unknown) study was consistent with less than significant sleep (unknown) (no (unknown) (unknown) Patient: (units (unkno wn) date) MeenakshiYadira Nick MR#: unknown) [id number] (unknown) (no (unknown) (unknown) Pertinent (units (unkn own) date) Positives/Negative unknown) s (unknown) (no (unknown) (unknown) Plan (units (unkno wn) date) unknown) (unknown) (no (unknown) (unknown) Positional (units (unk nown) date) therapy as needed. unknown) (unknown) (no (unknown) (unknown) Prescription (units (u nknown) date) written for unknown) renewal of PAP supplies; (unknown) (no (unknown) (unknown) Properly timed (units (unknown) date) exercise can unknown) promote good sleep. Vigorous exercise should be (unknown) (no (unknown) (unknown) Psych (units (unkno wn) date) unknown) (unknown) (no (unknown) (unknown) Psychological (units ( unknown) date) unknown) (unknown) (no (unknown) (unknown) Questionnaires (units (unknown) date) unknown) (unknown) (no (unknown) (unknown) RDIs have been (units (unknown) date) 14.6, 19.1(with a unknown) little REM sleep) and 18.4. This is consistent (unknown) (no (unknown) (unknown) ROS Sleep (units (unkn own) date) unknown) (unknown) (no (unknown) (unknown) Reason For Visit (units (unknown) date) unknown) (unknown) (no (unknown) (unknown) Reports chest (units ( unknown) date) pain (occasional, unknown) following with PCP, has had workup, states (unknown) (no (unknown) (unknown) Reports daytime (units (unknown) date) sleepiness and unknown) Denies difficulty sleeping (unknown) (no (unknown) (unknown) Reports napping (units (unknown) date) on occassion unknown) (unknown) (no (unknown) (unknown) Resp (units (unkno wn) date) unknown) (unknown) (no (unknown) (unknown) Respiratory (units (un known) date) unknown) (unknown) (no (unknown) (unknown) Return visit in 6 (units (unknown) date) months to assess unknown) continued response to PAP therapy Patient was (unknown) (no (unknown) (unknown) Sclera: sclerae (units (unknown) date) normal unknown) (unknown) (no (unknown) (unknown) Signed By: (units (unk nown) date) unknown) (unknown) (no (unknown) (unknown) Sitting and (units (un known) date) Readin = unknown) Moderate (unknown) (no (unknown) (unknown) Sitting and (units (un known) date) talking to unknown) someone: 0 = Never (None) (unknown) (no (unknown) (unknown) Sitting inactive (units (unknown) date) in a public place: unknown) 0 = Never (None) (unknown) (no (unknown) (unknown) Sitting quietly (units (unknown) date) after lunch (no unknown) alcohol): 2 = Moderate (unknown) (no (unknown) (unknown) Sleep Visit (units (un known) date) unknown) (unknown) (no (unknown) (unknown) [facility] unknown) (unknown) (no (unknown) (unknown) Smoking Status: (units (unknown) date) Never smoker unknown) (unknown) (no (unknown) (unknown) Speech and (units (unk nown) date) Movement: speech unknown) and movement normal (unknown) (no (unknown) (unknown) Speech: speech (units (unknown) date) normal unknown) (unknown) (no (unknown) (unknown) Stopped for a few (units (unknown) date) minutes in unknown) traffic: 1 = Slight (unknown) (no (unknown) (unknown) Symptoms (units (unkno wn) date) unknown) (unknown) (no (unknown) (unknown) The basics of the (units (unknown) date) pathophysiology of unknown) sleep apnea and the effect on sleep in (unknown) (no (unknown) (unknown) The patient (units (un known) date) reports symptoms unknown) of excessive daytime sleepiness as evidenced by (unknown) (no (unknown) (unknown) This can be seen (units (unknown) date) secondary to sleep unknown) apnea, depression, medical conditions or can (unknown) (no (unknown) (unknown) This is (units (unkno wn) date) consistent with unknown) nocturnal respiratory disturbance or UARS. CPAP was (unknown) (no (unknown) (unknown) This note may (units ( unknown) date) have been all or unknown) partially generated using voice recognition (unknown) (no (unknown) (unknown) This will be (units (u nknown) date) reassessed after unknown) her nocturnal respiratory disturbance has been (unknown) (no (unknown) (unknown) Tobacco + (units (unkn own) date) Substance Use unknown) (unknown) (no (unknown) (unknown) Tobacco Status (units (unknown) date) unknown) (unknown) (no (unknown) (unknown) Treatment (units (unkn own) date) Effects: Pap unknown) Treatment Response/Side Effects: adherent to current PAP (unknown) (no (unknown) (unknown) Treatment (units (unkn own) date) Response/Side unknown) Affects (unknown) (no (unknown) (unknown) 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 History of snoring and a disturbed (unknown) (no (unknown) (unknown) Usage: 56.7% (34 (units (unknown) date) days) with 51.7% unknown) greater than 4 hours. Leak 9 seconds. (unknown) (no (unknown) (unknown) Use of nasal (units (u nknown) date) steroids and unknown) montelukast was also reviewed. This has been noted to (unknown) (no (unknown) (unknown) Visit Reasons: 2M (units (unknown) date) comp unknown) (unknown) (no (unknown) (unknown) Visit type (FU): (units (unknown) date) follow up of [facility] unknown) therapy (Follow up UARS) Follow up evaluation (unknown) (no (unknown) (unknown) Watching TV: 2 = (units (unknown) date) Moderate unknown) (unknown) (no (unknown) (unknown) While alcohol is (units (unknown) date) well known to unknown) speed the onset of sleep, it disrupts sleep in (unknown) (no (unknown) (unknown) a repeat sleep (units (unknown) date) study with the use unknown) of a hypnotic was indicated. this third study (unknown) (no (unknown) (unknown) activities, you (units (unknown) date) may have more unknown) problems getting back to sleep during the night. (unknown) (no (unknown) (unknown) addition, (units (unkn own) date) avoiding nighttime unknown) bright light exposure, which can occur with many (unknown) (no (unknown) (unknown) addressed. (units (unk nown) date) unknown) (unknown) (no (unknown) (unknown) again showed (units (un known) date) little to no rem unknown) sleep, poor quality sleep and an elevated RDI. the (unknown) (no (unknown) (unknown) also a history of (units (unknown) date) depression and unknown) chronic insomnia with a Mallampati score of IV. (unknown) (no (unknown) (unknown) and her elevated (units (unknown) date) RDI, a repeat unknown) sleep study with the use of a hypnotic was (unknown) (no (unknown) (unknown) and wakefulness. (units (unknown) date) Scheduled napping unknown) may be considered if appropriate for the (unknown) (no (unknown) (unknown) apnea, no (units (unkn own) date) snoring, some unknown) desaturation events and no significant leg movements. (unknown) (no (unknown) (unknown) approved. (units (unkn own) date) unknown) (unknown) (no (unknown) (unknown) be an independent (units (unknown) date) problem. Sleep unknown) hygiene and sleep schedules were discussed. (unknown) (no (unknown) (unknown) be moderate on (units (unknown) date) all her sleep unknown) studies. we will continue to follow going forward. (unknown) (no (unknown) (unknown) bedtime. Also (units (u nknown) date) dietary changes unknown) can cause sleep problems, if someone is struggling (unknown) (no (unknown) (unknown) being registered (units (unknown) date) for unknown unknown) reason. Reports no issues with the machine, mask or (unknown) (no (unknown) (unknown) bring your (units (unk nown) date) problems to bed. unknown) (unknown) (no (unknown) (unknown) bruxism Bruxism (units (unknown) date) Branch: currently unknown) (does not wear the mouth guard) (unknown) (no (unknown) (unknown) but increased (units ( unknown) date) benefit from more unknown) usage was also explained. (unknown) (no (unknown) (unknown) but overall likes (units (unknown) date) using the machine. unknown) She also states some of the days were not (unknown) (no (unknown) (unknown) by trouble (units (unk nown) date) falling asleep, unknown) trouble staying asleep and non-restorative sleep. (unknown) (no (unknown) (unknown) clinical history (units (unknown) date) it was determined unknown) that a diagnostic sleep study was indicated. (unknown) (no (unknown) (unknown) comfortable, the (units (unknown) date) room should be unknown) quiet, not too hot or cold, or too bright. (unknown) (no (unknown) (unknown) conversations and (units (unknown) date) activities before unknown) trying to go to sleep. Don't dwell on, or (unknown) (no (unknown) (unknown) daytime sleeping (units (unknown) date) complaints of unknown) sleepiness at work and drowsy driving with an (unknown) (no (unknown) (unknown) decreased daytime (units (unknown) date) sleepiness. She is unknown) clearly benefitting from PAP therapy and (unknown) (no (unknown) (unknown) denies heart burn (units (unknown) date) symptoms at night, unknown) reports nocturia (2-4 times per night), (unknown) (no (unknown) (unknown) denies night (units (u nknown) date) sweats, reports unknown) morning headache (chronic migraine, improved), (unknown) (no (unknown) (unknown) dishes. And, (units (u nknown) date) remember, unknown) chocolate has caffeine. (unknown) (no (unknown) (unknown) done before bed (units (unknown) date) to help initiate a unknown) restful night's sleep. (unknown) (no (unknown) (unknown) drowsy. (units (unkno wn) date) unknown) (unknown) (no (unknown) (unknown) elevated RDI. the (units (unknown) date) RDIs have been unknown) 14.6, 19.1(with a little REM sleep) and 18.4. (unknown) (no (unknown) (unknown) gasping Choking or (units (unknown) date) Gasping Branch: unknown) denied, epworth sleep scale score (02/18) and (unknown) (no (unknown) (unknown) general were (units (u nknown) date) discussed at unknown) length. After review of the physical findings and (unknown) (no (unknown) (unknown) have occurred. If (units (unknown) date) there are any unknown) questions, please contact the Medical Records (unknown) (no (unknown) (unknown) her sleep issues, (units (unknown) date) low REM sleep unknown) amount on the sleep study and her elevated RDI, (unknown) (no (unknown) (unknown) indicated to (units (u nknown) date) determine to what unknown) extent this is contributing to her poor quality (unknown) (no (unknown) (unknown) indicated. Study (units (unknown) date) again showed unknown) little to no rem sleep, poor quality sleep and an (unknown) (no (unknown) (unknown) initiated. (units (unk nown) date) unknown) (unknown) (no (unknown) (unknown) instructed to (units ( unknown) date) return sooner if unknown) any questions or concerns arise. (unknown) (no (unknown) (unknown) is willing to (units ( unknown) date) continue. unknown) (unknown) (no (unknown) (unknown) leg movements. (units (unknown) date) Given her sleep unknown) issues, low REM sleep amount on the sleep study (unknown) (no (unknown) (unknown) listen to the (units ( unknown) date) radio, or read as unknown) if you associate falling asleep with these (unknown) (no (unknown) (unknown) may occur. (units (unk nown) date) Occasional unknown) wrong-word or 'sound-alike' substitutions may have (unknown) (no (unknown) (unknown) morning (units (unkno wn) date) (sometimes), unknown) denies nocturnal cough, denies nocturnal palpitations, (unknown) (no (unknown) (unknown) nasal saline and (units (unknown) date) internal and unknown) external nasal dilator therapies were discussed. (unknown) (no (unknown) (unknown) nothing was (units (un known) date) found) unknown) (unknown) (no (unknown) (unknown) occurred due to (units (unknown) date) the inherent unknown) limitations of voice recognition software. Please (unknown) (no (unknown) (unknown) of [facility] therapy: (units (unknown) date) CPAP (5-15 cwp) unknown) (unknown) (no (unknown) (unknown) older people who (units (unknown) date) may not venture unknown) outside as frequently as children and adults. (unknown) (no (unknown) (unknown) on PAP well, sleep (units (unknown) date) quality well and unknown) daytime sleepiness Daytime Sleepiness Branch (unknown) (no (unknown) (unknown) once her (units (unkno wn) date) nocturnal unknown) respiratory disturbance has been addressed. (unknown) (no (unknown) (unknown) optimal sleep (units ( unknown) date) schedule. unknown) (unknown) (no (unknown) (unknown) personal (units (unkno wn) date) electronic unknown) devices, can also help maintain a healthy sleep-wake cycle. (unknown) (no (unknown) (unknown) pressure. Showing (units (unknown) date) positive unknown) improvement as evidenced by better sleep and (unknown) (no (unknown) (unknown) problem. Risks and (units (unknown) date) symptoms of unknown) drowsiness were reviewed. This will be reassessed (unknown) (no (unknown) (unknown) read the note (units ( unknown) date) carefully and unknown) recognize, using context, where these substitutions (unknown) (no (unknown) (unknown) reports anxiety (units (unknown) date) unknown) (unknown) (no (unknown) (unknown) reports nasal (units (u nknown) date) congestion at unknown) night, reports dry mouth, reports sore throat in the (unknown) (no (unknown) (unknown) reports pain (units (un known) date) (sometimes, unknown) headaches, neck pain), reports dizziness in the morning (unknown) (no (unknown) (unknown) reports sleeping (units (unknown) date) pills (gabapentin) unknown) (unknown) (no (unknown) (unknown) sentences and no (units (unknown) date) audible wheezes unknown) (unknown) (no (unknown) (unknown) significant sleep (units (unknown) date) apnea, no snoring, unknown) some desaturation events and no significant (unknown) (no (unknown) (unknown) sleep and daytime (units (unknown) date) sleepiness. Her unknown) insurance will be contracted to determine if (unknown) (no (unknown) (unknown) sleep pattern. (units ( unknown) date) There is also a unknown) history of depression and chronic insomnia with a (unknown) (no (unknown) (unknown) software. (units (unkn own) date) Although every unknown) effort is made to edit content, garde manger errors (unknown) (no (unknown) (unknown) somnolence (units (unk nown) date) occasional, unknown) snoring not appreciated, apnea not witnessed, choking or (unknown) (no (unknown) (unknown) spending time in (units (unknown) date) bed not sleeping unknown) moderate, normal bedtime ([id number]), normal (unknown) (no (unknown) (unknown) staying asleep (units (unknown) date) intermittent unknown) (improving), machine taper awakening frequent, (unknown) (no (unknown) (unknown) taken in the (units (u nknown) date) morning or late unknown) afternoon. A relaxing exercise, like yoga, can be (unknown) (no (unknown) (unknown) the day (units (unkno wn) date) (sometimes), unknown) reports depression (controlled with medications) and (unknown) (no (unknown) (unknown) the second half (units (unknown) date) as the body begins unknown) to metabolize the alcohol, causing arousal. (unknown) (no (unknown) (unknown) the therapy will (units (unknown) date) be covered. She is unknown) willing to proceed with PAP therapy if (unknown) (no (unknown) (unknown) to sleep apnea, (units (unknown) date) insomnia, unknown) depression, medical conditions or can be a primary (unknown) (no (unknown) (unknown) treatment (units (unkn own) date) improving on unknown) treatment (unknown) (no (unknown) (unknown) wake time (units (unkno wn) date) ([id number]), sleep unknown) schedule Sleep Schedule Branch: consistent, daytime (unknown) (no (unknown) (unknown) with a sleep (units (u nknown) date) problem, it's not unknown) a good time to start experimenting with spicy (unknown) (no (unknown) (unknown) with nocturnal (units (unknown) date) respiratory unknown) disturbance or UARS. Treatment with CPAP therapy is Result panel 7 (unknown) (no (unknown) (unknown) (no value) (units (unk nown) date) unknown) (unknown) (no (unknown) (unknown) (1) (units (unkno wn) date) Breathing-related unknown) sleep disorder: (unknown) (no (unknown) (unknown) (2) Insomnia: (units ( unknown) date) unknown) (unknown) (no (unknown) (unknown) (3) Excessive (units ( unknown) date) daytime unknown) sleepiness: (unknown) (no (unknown) (unknown) (vestibular (units (un known) date) migraines, unknown) improved), reports trouble consentrating/focu sing durng (unknown) (no (unknown) (unknown) 0 = Would never (units (unknown) date) doze or sleep, 1 = unknown) Slight chance of dozing or sleeping, 2 = (unknown) (no (unknown) (unknown) 02/01/22 (units (unkno wn) date) unknown) (unknown) (no (unknown) (unknown) 2: better (units (unkn own) date) unknown) (unknown) (no (unknown) (unknown) [id number] (units (unkno wn) date) unknown) (unknown) (no (unknown) (unknown) ADHD, Vyvase (units (u nknown) date) prescribed by unknown[place] ([place]) (no (unknown) (unknown) AHIflow: 1.4 (units (u nknown) date) unknown) (unknown) (no (unknown) (unknown) Adhere to regular (units (unknown) date) mealtime schedule, unknown) avoid snacking (unknown) (no (unknown) (unknown) Affect: normal (units (unknown) date) affect unknown) (unknown) (no (unknown) (unknown) Age/Sex: 41 / F (units (unknown) date) Date of Service: unknown) (unknown) (no (unknown) (unknown) Allergies (units (unkn own) date) unknown) (unknown) (no (unknown) (unknown) [place], [place] (units ( unknown) date) [id number] unknown) (unknown) (no (unknown) (unknown) Appearance: (units (un known) date) grossly normal unknown) (unknown) (no (unknown) (unknown) Assessment + Plan (units (unknown) date) unknown) (unknown) (no (unknown) (unknown) Assessment and (units (unknown) date) Plan: unknown) (unknown) (no (unknown) (unknown) Associate your bed (units (unknown) date) with sleep. It's unknown) not a good idea to use your bed to watch TV, (unknown) (no (unknown) (unknown) Attending Dr: (units ( unknown) date) Jason MADRIGAL unknown) (unknown) (no (unknown) (unknown) Attitude: (units (unkn own) date) cooperative unknown) (unknown) (no (unknown) (unknown) Auto CPAP set (units ( unknown) date) pressures: 5-15 unknown) CWP (unknown) (no (unknown) (unknown) Avoid alcohol (units ( unknown) date) after 4 pm unknown) (unknown) (no (unknown) (unknown) Avoid medications (units (unknown) date) which may unknown) interfere with sleep (unknown) (no (unknown) (unknown) Avoid random (units (u nknown) date) napping during the unknown) day; it can disturb the normal pattern of sleep (unknown) (no (unknown) (unknown) Avoid stimulants (units (unknown) date) such as caffeine, unknown) nicotine, and alcohol too close to bedtime. (unknown) (no (unknown) (unknown) Being a passenger (units (unknown) date) in a motor vehicle unknown) for an hour or so: 0 = Never (None) (unknown) (no (unknown) (unknown) Caffeine Branch: (units (unknown) date) 1-5 servings a unknown) day, reports stimulant therapy (Vyvanse) and (unknown) (no (unknown) (unknown) Cardiac (units (unkno wn) date) unknown) (unknown) (no (unknown) (unknown) Chief Complaint: (units (unknown) date) Follow up CPAP unknown) therapy for UARS (unknown) (no (unknown) (unknown) Clinical Course (units (unknown) date) unknown) (unknown) (no (unknown) (unknown) Cognition: normal (units (unknown) date) cognition unknown) (unknown) (no (unknown) (unknown) Condition is (units (u nknown) date) Onset: Chronic and unknown) ongoing condition (unknown) (no (unknown) (unknown) Conjunctivae: (units ( unknown) date) conjunctivae unknown) normal (unknown) (no (unknown) (unknown) Consider weaning (units (unknown) date) caffeine use, unknown) starting with no caffeine after 3pm (unknown) (no (unknown) (unknown) Const (units (unkno wn) date) unknown) (unknown) (no (unknown) (unknown) Currently using (units (unknown) date) CPAP 5-15 cwp. Has unknown) not been using regularly due to sinus issues (unknown) (no (unknown) (unknown) DME: [employer] (units (u nknown) date) unknown) (unknown) (no (unknown) (unknown) : 1980 (units (unknown) date) Acct:[id number] unknown) (unknown) (no (unknown) (unknown) Denies bloating (units (unknown) date) on CPAP unknown) (unknown) (no (unknown) (unknown) Denies dyspnea at (units (unknown) date) night unknown) (unknown) (no (unknown) (unknown) Dept at (units (unkno wn) date) . unknown) (unknown) (no (unknown) (unknown) Details: (units (unkno wn) date) unknown) (unknown) (no (unknown) (unknown) Device data last (units (unknown) date) 60 days: unknown) (unknown) (no (unknown) (unknown) Device set (units (unk nown) date) up:12/16/2021 unknown) (unknown) (no (unknown) (unknown) Documented By: (units (unknown) date) Jason Lilly unknown) 02/01/22 1034 (unknown) (no (unknown) (unknown) Draft (units (unkno wn) date) unknown) (unknown) (no (unknown) (unknown) Drowsy driving (units (unknown) date) handout made unknown) available. (unknown) (no (unknown) (unknown) Ears: hearing (units ( unknown) date) grossly normal unknown) bilaterally (unknown) (no (unknown) (unknown) Effort + (units (unkno wn) date) Inspection: normal unknown) respiratory effort, able to speak in complete (unknown) (no (unknown) (unknown) Ensure adequate (units (unknown) date) exposure to unknown) natural light. This is particularly important for (unknown) (no (unknown) (unknown) [place] Score: 9 (units (unknown) date) unknown) (unknown) (no (unknown) (unknown) [place] (units (unkno wn) date) Sleepiness Scale unknown) score of 11/18 on Vyvanse. This can be seen secondary (unknown) (no (unknown) (unknown) [place] (units (unkno wn) date) Sleepiness Scale unknown) (unknown) (no (unknown) (unknown) Establish a (units (unk nown) date) regular relaxing unknown) bedtime routine. Try to avoid emotionally upsetting (unknown) (no (unknown) (unknown) Exacerbating/Matteo (units (unknown) date) viating Factors unknown) (unknown) (no (unknown) (unknown) Exam Narrative (units (unknown) date) unknown) (unknown) (no (unknown) (unknown) Exam Narrative: (units (unknown) date) unknown) (unknown) (no (unknown) (unknown) Exam (units (unkno wn) date) unknown) (unknown) (no (unknown) (unknown) Eyes (units (unkno wn) date) unknown) (unknown) (no (unknown) (unknown) Food can be (units (un known) date) disruptive right unknown) before sleep; stay away from large meals close to (unknown) (no (unknown) (unknown) GI (units (unkno wn) date) unknown) (unknown) (no (unknown) (unknown) General: (units (unkno wn) date) cooperative, unknown) comfortable and no acute distress (unknown) (no (unknown) (unknown) General: patient (units (unknown) date) alert, patient unknown) awake and patient oriented x3 (unknown) (no (unknown) (unknown) Get regular (units (un known) date) moderate exercise unknown) (30 minutes, 3x/week) (unknown) (no (unknown) (unknown) HENMT (units (unkno wn) date) unknown) (unknown) (no (unknown) (unknown) HPI Sleep Follow (units (unknown) date) Up unknown) (unknown) (no (unknown) (unknown) HPI (units (unkno wn) date) unknown) (unknown) (no (unknown) (unknown) Head: normal to (units (unknown) date) inspection unknown) (unknown) (no (unknown) (unknown) Implications of (units (unknown) date) these findings unknown) were discussed. Next steps were discussed. Given (unknown) (no (unknown) (unknown) Insomnia has (units (u nknown) date) improved with PAP unknown) therapy. (unknown) (no (unknown) (unknown) Intake (units (unkno wn) date) unknown) (unknown) (no (unknown) (unknown) Light exposure (units (unknown) date) during the day unknown) helps maintain a healthy sleep-wake cycle. In (unknown) (no (unknown) (unknown) Loc: SLEEP (units (unk nown) date) unknown) (unknown) (no (unknown) (unknown) Lying down in the (units (unknown) date) afternoon: 2 = unknown) Moderate (unknown) (no (unknown) (unknown) Make sure that the (units (unknown) date) sleep environment unknown) is pleasant and relaxing. The bed should be (unknown) (no (unknown) (unknown) Mallampati score (units (unknown) date) of IV. Diagnostic unknown) sleep study was consistent with less than (unknown) (no (unknown) (unknown) Moderate chance (units (unknown) date) of dozing or unknown) sleeping, 3 = High chance of dozing or sleeping (unknown) (no (unknown) (unknown) Mood: congruent (units (unknown) date) mood unknown) (unknown) (no (unknown) (unknown) Neck (units (unkno wn) date) unknown) (unknown) (no (unknown) (unknown) Neck: normal (units (u nknown) date) visual inspection unknown) (unknown) (no (unknown) (unknown) Neuro (units (unkno wn) date) unknown) (unknown) (no (unknown) (unknown) No Known Drug (units ( unknown) date) Allergies Allergy unknown) (Verified 02/01/22 10:49) (unknown) (no (unknown) (unknown) PFSH (units (unkno wn) date) unknown) (unknown) (no (unknown) (unknown) Pain scale (units (unk nown) date) (1-10): 4 unknown) (unknown) (no (unknown) (unknown) Pain (units (unkno wn) date) unknown) (unknown) (no (unknown) (unknown) Patient (units (unkno wn) date) instructed to use unknown) scheduled naps as needed for drowsiness safety (unknown) (no (unknown) (unknown) Patient (units (unkno wn) date) prescribed unknown) continued CPAP therapy at 9-15 cwp. No changes made today. (unknown) (no (unknown) (unknown) Patient reports a (units (unknown) date) history of snoring unknown) and a disturbed sleep pattern. There is (unknown) (no (unknown) (unknown) Patient reports (units (unknown) date) alcohol Sleep unknown) Alcohol Branch: never, reports caffeine Sleep (unknown) (no (unknown) (unknown) Patient reports (units (unknown) date) difficulty falling unknown) asleep is occasional (improving), difficulty (unknown) (no (unknown) (unknown) Patient reports (units (unknown) date) symptoms of unknown) chronic insomnia for more than 3 months as evidenced (unknown) (no (unknown) (unknown) Patient was (units (un known) date) encouraged to unknown) maintain PAP usage at a minimum of 4 hours a night, (unknown) (no (unknown) (unknown) Patient was (units (un known) date) instructed to unknown) avoid driving or operating heavy machinery when (unknown) (no (unknown) (unknown) Patient's (units (unkno wn) date) diagnostic sleep unknown) study was consistent with less than significant sleep (unknown) (no (unknown) (unknown) Patient: (units (unkno wn) date) MeenakshiYadira Romero MR#: unknown) [id number] (unknown) (no (unknown) (unknown) Pertinent (units (unkn own) date) Positives/Negative unknown) s (unknown) (no (unknown) (unknown) Plan (units (unkno wn) date) unknown) (unknown) (no (unknown) (unknown) Please review the (units (unknown) date) following unknown) suggestins. (unknown) (no (unknown) (unknown) Prescription (units (u nknown) date) written for unknown) renewal of PAP supplies; (unknown) (no (unknown) (unknown) Properly timed (units (unknown) date) exercise can unknown) promote good sleep. Vigorous exercise should be (unknown) (no (unknown) (unknown) Psych (units (unkno wn) date) unknown) (unknown) (no (unknown) (unknown) Psychological (units ( unknown) date) unknown) (unknown) (no (unknown) (unknown) Questionnaires (units (unknown) date) unknown) (unknown) (no (unknown) (unknown) RDIs have been (units (unknown) date) 14.6, 19.1(with a unknown) little REM sleep) and 18.4. This is consistent (unknown) (no (unknown) (unknown) ROS Sleep (units (unkn own) date) unknown) (unknown) (no (unknown) (unknown) Reason For Visit (units (unknown) date) unknown) (unknown) (no (unknown) (unknown) Reports chest (units ( unknown) date) pain (occasional, unknown) following with PCP, has had workup, states (unknown) (no (unknown) (unknown) Reports daytime (units (unknown) date) sleepiness and unknown) Denies difficulty sleeping (unknown) (no (unknown) (unknown) Reports napping (units (unknown) date) on occassion unknown) (unknown) (no (unknown) (unknown) Resp (units (unkno wn) date) unknown) (unknown) (no (unknown) (unknown) Respiratory (units (un known) date) unknown) (unknown) (no (unknown) (unknown) Return visit in 6 (units (unknown) date) months to assess unknown) continued response to PAP therapy Patient was (unknown) (no (unknown) (unknown) Sclera: sclerae (units (unknown) date) normal unknown) (unknown) (no (unknown) (unknown) Signed By: (units (unk nown) date) unknown) (unknown) (no (unknown) (unknown) Sitting and (units (un known) date) Readin = unknown) Moderate (unknown) (no (unknown) (unknown) Sitting and (units (un known) date) talking to unknown) someone: 0 = Never (None) (unknown) (no (unknown) (unknown) Sitting inactive (units (unknown) date) in a public place: unknown) 0 = Never (None) (unknown) (no (unknown) (unknown) Sitting quietly (units (unknown) date) after lunch (no unknown) alcohol): 2 = Moderate (unknown) (no (unknown) (unknown) Sleep Visit (units (un known) date) unknown) (unknown) (no (unknown) (unknown) [facility] unknown) (unknown) (no (unknown) (unknown) Smoking Status: (units (unknown) date) Never smoker unknown) (unknown) (no (unknown) (unknown) Speech and (units (unk nown) date) Movement: speech unknown) and movement normal (unknown) (no (unknown) (unknown) Speech: speech (units (unknown) date) normal unknown) (unknown) (no (unknown) (unknown) Stopped for a few (units (unknown) date) minutes in unknown) traffic: 1 = Slight (unknown) (no (unknown) (unknown) Symptoms (units (unkno wn) date) unknown) (unknown) (no (unknown) (unknown) The basics of the (units (unknown) date) pathophysiology of unknown) sleep apnea and the effect on sleep in (unknown) (no (unknown) (unknown) The patient (units (un known) date) reports symptoms unknown) of excessive daytime sleepiness as evidenced by (unknown) (no (unknown) (unknown) This can be seen (units (unknown) date) secondary to sleep unknown) apnea, depression, medical conditions or can (unknown) (no (unknown) (unknown) This is (units (unkno wn) date) consistent with unknown) nocturnal respiratory disturbance or UARS. CPAP was (unknown) (no (unknown) (unknown) This note may (units ( unknown) date) have been all or unknown) partially generated using voice recognition (unknown) (no (unknown) (unknown) Tobacco + (units (unkn own) date) Substance Use unknown) (unknown) (no (unknown) (unknown) Tobacco Status (units (unknown) date) unknown) (unknown) (no (unknown) (unknown) Treatment (units (unkn own) date) Effects: Pap unknown) Treatment Response/Side Effects: adherent to current PAP (unknown) (no (unknown) (unknown) Treatment (units (unkn own) date) Response/Side unknown) Affects (unknown) (no (unknown) (unknown) 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 History of snoring and a disturbed (unknown) (no (unknown) (unknown) Usage: 56.7% (34 (units (unknown) date) days) with 51.7% unknown) greater than 4 hours. Leak 9 seconds. (unknown) (no (unknown) (unknown) Visit Reasons: 2M (units (unknown) date) comp unknown) (unknown) (no (unknown) (unknown) Visit type (FU): (units (unknown) date) follow up of [facility] unknown) therapy (Follow up UARS) Follow up evaluation (unknown) (no (unknown) (unknown) Watching TV: 2 = (units (unknown) date) Moderate unknown) (unknown) (no (unknown) (unknown) While alcohol is (units (unknown) date) well known to unknown) speed the onset of sleep, it disrupts sleep in (unknown) (no (unknown) (unknown) a repeat sleep (units (unknown) date) study with the use unknown) of a hypnotic was indicated. this third study (unknown) (no (unknown) (unknown) activities, you (units (unknown) date) may have more unknown) problems getting back to sleep during the night. (unknown) (no (unknown) (unknown) addition, (units (unkn own) date) avoiding nighttime unknown) bright light exposure, which can occur with many (unknown) (no (unknown) (unknown) again showed (units (un known) date) little to no rem unknown) sleep, poor quality sleep and an elevated RDI. the (unknown) (no (unknown) (unknown) also a history of (units (unknown) date) depression and unknown) chronic insomnia with a Mallampati score of IV. (unknown) (no (unknown) (unknown) and her elevated (units (unknown) date) RDI, a repeat unknown) sleep study with the use of a hypnotic was (unknown) (no (unknown) (unknown) and wakefulness. (units (unknown) date) Scheduled napping unknown) may be considered if appropriate for the (unknown) (no (unknown) (unknown) apnea, no (units (unkn own) date) snoring, some unknown) desaturation events and no significant leg movements. (unknown) (no (unknown) (unknown) approved. (units (unkn own) date) unknown) (unknown) (no (unknown) (unknown) be an independent (units (unknown) date) problem. Sleep unknown) hygiene and sleep schedules were discussed. (unknown) (no (unknown) (unknown) bedtime. Also (units (u nknown) date) dietary changes unknown) can cause sleep problems, if someone is struggling (unknown) (no (unknown) (unknown) being registered (units (unknown) date) for unknown unknown) reason. Reports no issues with the machine, mask or (unknown) (no (unknown) (unknown) bring your (units (unk nown) date) problems to bed. unknown) (unknown) (no (unknown) (unknown) bruxism Bruxism (units (unknown) date) Branch: currently unknown) (does not wear the mouth guard) (unknown) (no (unknown) (unknown) but increased (units ( unknown) date) benefit from more unknown) usage was also explained. (unknown) (no (unknown) (unknown) but overall likes (units (unknown) date) using the machine. unknown) She also states some of the days were not (unknown) (no (unknown) (unknown) by trouble (units (unk nown) date) falling asleep, unknown) trouble staying asleep and non-restorative sleep. (unknown) (no (unknown) (unknown) clinical history (units (unknown) date) it was determined unknown) that a diagnostic sleep study was indicated. (unknown) (no (unknown) (unknown) comfortable, the (units (unknown) date) room should be unknown) quiet, not too hot or cold, or too bright. (unknown) (no (unknown) (unknown) conversations and (units (unknown) date) activities before unknown) trying to go to sleep. Don't dwell on, or (unknown) (no (unknown) (unknown) daytime sleeping (units (unknown) date) complaints of unknown) sleepiness at work and drowsy driving with an (unknown) (no (unknown) (unknown) decreased daytime (units (unknown) date) sleepiness. She is unknown) clearly benefitting from PAP therapy and (unknown) (no (unknown) (unknown) denies heart burn (units (unknown) date) symptoms at night, unknown) reports nocturia (2-4 times per night), (unknown) (no (unknown) (unknown) denies night (units (u nknown) date) sweats, reports unknown) morning headache (chronic migraine, improved), (unknown) (no (unknown) (unknown) dishes. And, (units (u nknown) date) remember, unknown) chocolate has caffeine. (unknown) (no (unknown) (unknown) done before bed (units (unknown) date) to help initiate a unknown) restful night's sleep. (unknown) (no (unknown) (unknown) drowsy. (units (unkno wn) date) unknown) (unknown) (no (unknown) (unknown) elevated RDI. the (units (unknown) date) RDIs have been unknown) 14.6, 19.1(with a little REM sleep) and 18.4. (unknown) (no (unknown) (unknown) gasping Choking or (units (unknown) date) Gasping Branch: unknown) denied, epworth sleep scale score (02/18) and (unknown) (no (unknown) (unknown) general were (units (u nknown) date) discussed at unknown) length. After review of the physical findings and (unknown) (no (unknown) (unknown) have occurred. If (units (unknown) date) there are any unknown) questions, please contact the Medical Records (unknown) (no (unknown) (unknown) her sleep issues, (units (unknown) date) low REM sleep unknown) amount on the sleep study and her elevated RDI, (unknown) (no (unknown) (unknown) indicated to (units (u nknown) date) determine to what unknown) extent this is contributing to her poor quality (unknown) (no (unknown) (unknown) indicated. Study (units (unknown) date) again showed unknown) little to no rem sleep, poor quality sleep and an (unknown) (no (unknown) (unknown) initiated. (units (unk nown) date) unknown) (unknown) (no (unknown) (unknown) instructed to (units ( unknown) date) return sooner if unknown) any questions or concerns arise. (unknown) (no (unknown) (unknown) is willing to (units ( unknown) date) continue. unknown) (unknown) (no (unknown) (unknown) leg movements. (units (unknown) date) Given her sleep unknown) issues, low REM sleep amount on the sleep study (unknown) (no (unknown) (unknown) listen to the (units ( unknown) date) radio, or read as unknown) if you associate falling asleep with these (unknown) (no (unknown) (unknown) may occur. (units (unk nown) date) Occasional unknown) wrong-word or 'sound-alike' substitutions may have (unknown) (no (unknown) (unknown) morning (units (unkno wn) date) (sometimes), unknown) denies nocturnal cough, denies nocturnal palpitations, (unknown) (no (unknown) (unknown) nothing was (units (un known) date) found) unknown) (unknown) (no (unknown) (unknown) occurred due to (units (unknown) date) the inherent unknown) limitations of voice recognition software. Please (unknown) (no (unknown) (unknown) of [facility] therapy: (units (unknown) date) CPAP (5-15 cwp) unknown) (unknown) (no (unknown) (unknown) older people who (units (unknown) date) may not venture unknown) outside as frequently as children and adults. (unknown) (no (unknown) (unknown) on PAP well, sleep (units (unknown) date) quality well and unknown) daytime sleepiness Daytime Sleepiness Branch (unknown) (no (unknown) (unknown) optimal sleep (units ( unknown) date) schedule. unknown) (unknown) (no (unknown) (unknown) personal (units (unkno wn) date) electronic unknown) devices, can also help maintain a healthy sleep-wake cycle. (unknown) (no (unknown) (unknown) pressure. Showing (units (unknown) date) positive unknown) improvement as evidenced by better sleep and (unknown) (no (unknown) (unknown) problem. Risks (units (unknown) date) and symptoms of unknown) drowsiness were reviewed. Symptoms have improved (unknown) (no (unknown) (unknown) read the note (units ( unknown) date) carefully and unknown) recognize, using context, where these substitutions (unknown) (no (unknown) (unknown) reports anxiety (units (unknown) date) unknown) (unknown) (no (unknown) (unknown) reports nasal (units (u nknown) date) congestion at unknown) night, reports dry mouth, reports sore throat in the (unknown) (no (unknown) (unknown) reports pain (units (un known) date) (sometimes, unknown) headaches, neck pain), reports dizziness in the morning (unknown) (no (unknown) (unknown) reports sleeping (units (unknown) date) pills (gabapentin) unknown) (unknown) (no (unknown) (unknown) sentences and no (units (unknown) date) audible wheezes unknown) (unknown) (no (unknown) (unknown) significant sleep (units (unknown) date) apnea, no snoring, unknown) some desaturation events and no significant (unknown) (no (unknown) (unknown) sleep and daytime (units (unknown) date) sleepiness. Her unknown) insurance will be contracted to determine if (unknown) (no (unknown) (unknown) sleep pattern. (units ( unknown) date) There is also a unknown) history of depression and chronic insomnia with a (unknown) (no (unknown) (unknown) software. (units (unkn own) date) Although every unknown) effort is made to edit content, garde manger errors (unknown) (no (unknown) (unknown) somnolence (units (unk nown) date) occasional, unknown) snoring not appreciated, apnea not witnessed, choking or (unknown) (no (unknown) (unknown) spending time in (units (unknown) date) bed not sleeping unknown) moderate, normal bedtime ([id number]), normal (unknown) (no (unknown) (unknown) staying asleep (units (unknown) date) intermittent unknown) (improving), machine taper awakening frequent, (unknown) (no (unknown) (unknown) taken in the (units (u nknown) date) morning or late unknown) afternoon. A relaxing exercise, like yoga, can be (unknown) (no (unknown) (unknown) the day (units (unkno wn) date) (sometimes), unknown) reports depression (controlled with medications) and (unknown) (no (unknown) (unknown) the second half (units (unknown) date) as the body begins unknown) to metabolize the alcohol, causing arousal. (unknown) (no (unknown) (unknown) the therapy will (units (unknown) date) be covered. She is unknown) willing to proceed with PAP therapy if (unknown) (no (unknown) (unknown) to sleep apnea, (units (unknown) date) insomnia, unknown) depression, medical conditions or can be a primary (unknown) (no (unknown) (unknown) treatment (units (unkn own) date) improving on unknown) treatment (unknown) (no (unknown) (unknown) wake time (units (unkno wn) date) ([id number]), sleep unknown) schedule Sleep Schedule Branch: consistent, daytime (unknown) (no (unknown) (unknown) with PAP therapy. (units (unknown) date) unknown) (unknown) (no (unknown) (unknown) with a sleep (units (u nknown) date) problem, it's not unknown) a good time to start experimenting with spicy (unknown) (no (unknown) (unknown) with nocturnal (units (unknown) date) respiratory unknown) disturbance or UARS. Treatment with CPAP therapy is Result panel 8 (unknown) (no (unknown) (unknown) (no value) (units (unk nown) date) unknown) (unknown) (no (unknown) (unknown) (1) (units (unkno wn) date) Breathing-related unknown) sleep disorder: (unknown) (no (unknown) (unknown) (2) Insomnia: (units ( unknown) date) unknown) (unknown) (no (unknown) (unknown) (3) Excessive (units ( unknown) date) daytime sleepiness: unknown) (unknown) (no (unknown) (unknown) (vestibular (units (un known) date) migraines, unknown) improved), reports trouble consentrating/focus ing durng (unknown) (no (unknown) (unknown) 0 = Would never (units (unknown) date) doze or sleep, 1 = unknown) Slight chance of dozing or sleeping, 2 = (unknown) (no (unknown) (unknown) 02/01/22 (units (unkno wn) date) unknown) (unknown) (no (unknown) (unknown) 02/01/22] (units (unkn own) date) unknown) (unknown) (no (unknown) (unknown) 10:49 (units (unkno wn) date) unknown) (unknown) (no (unknown) (unknown) 2: better (units (unkn own) date) unknown) (unknown) (no (unknown) (unknown) [id number] (units (unkno wn) date) unknown) (unknown) (no (unknown) (unknown) ADHD, Vyvase (units (u nknown) date) [place] by unknown[place] ([place]) (no (unknown) (unknown) AHIflow: 1.4 (units (u nknown) date) unknown) (unknown) (no (unknown) (unknown) Adhere to regular (units (unknown) date) mealtime schedule, unknown) avoid snacking (unknown) (no (unknown) (unknown) Affect: normal (units (unknown) date) affect unknown) (unknown) (no (unknown) (unknown) Age/Sex: 41 / F (units (unknown) date) Date of Service: unknown) (unknown) (no (unknown) (unknown) Allergies (units (unkn own) date) unknown) (unknown) (no (unknown) (unknown) [place], [place] (units ( unknown) date) [id number] unknown) (unknown) (no (unknown) (unknown) Appearance: (units (un known) date) grossly normal unknown) (unknown) (no (unknown) (unknown) Assessment + Plan (units (unknown) date) unknown) (unknown) (no (unknown) (unknown) Assessment and (units (unknown) date) Plan: unknown) (unknown) (no (unknown) (unknown) Associate your bed (units (unknown) date) with sleep. It's unknown) not a good idea to use your bed to watch TV, (unknown) (no (unknown) (unknown) Attending Dr: (units ( unknown) date) Jason MADRIGAL unknown) (unknown) (no (unknown) (unknown) Attitude: (units (unkn own) date) cooperative unknown) (unknown) (no (unknown) (unknown) Auto CPAP set (units ( unknown) date) pressures: 5-15 CWP unknown) (unknown) (no (unknown) (unknown) Avoid alcohol (units ( unknown) date) after 4 pm unknown) (unknown) (no (unknown) (unknown) Avoid medications (units (unknown) date) which may interfere unknown) with sleep (unknown) (no (unknown) (unknown) Avoid random (units (u nknown) date) napping during the unknown) day; it can disturb the normal pattern of sleep (unknown) (no (unknown) (unknown) Avoid stimulants (units (unknown) date) such as caffeine, unknown) nicotine, and alcohol too close to bedtime. (unknown) (no (unknown) (unknown) BMI 40.0 (units (unkno wn) date) unknown) (unknown) (no (unknown) (unknown) BP 147/90 H (units (un known) date) unknown) (unknown) (no (unknown) (unknown) Being a passenger (units (unknown) date) in a motor vehicle unknown) for an hour or so: 0 = Never (None) (unknown) (no (unknown) (unknown) Blood Pressure (units (unknown) date) Location Lt unknown) brachial (unknown) (no (unknown) (unknown) Caffeine Branch: (units (unknown) date) 1-5 servings a day, unknown) reports stimulant therapy (Vyvanse) and (unknown) (no (unknown) (unknown) Cardiac (units (unkno wn) date) unknown) (unknown) (no (unknown) (unknown) Chief Complaint: (units (unknown) date) Follow up CPAP unknown) therapy for UARS (unknown) (no (unknown) (unknown) Clinical Course (units (unknown) date) unknown) (unknown) (no (unknown) (unknown) Cognition: normal (units (unknown) date) cognition unknown) (unknown) (no (unknown) (unknown) Condition is (units (u nknown) date) Onset: Chronic and unknown) ongoing condition (unknown) (no (unknown) (unknown) Confirmed (units (unkn own) date) 02/01/22] unknown) (unknown) (no (unknown) (unknown) Conjunctivae: (units ( unknown) date) conjunctivae normal unknown) (unknown) (no (unknown) (unknown) Consider weaning (units (unknown) date) caffeine use, unknown) starting with no caffeine after 3pm (unknown) (no (unknown) (unknown) Const (units (unkno wn) date) unknown) (unknown) (no (unknown) (unknown) Currently using (units (unknown) date) CPAP 5-15 cwp. Has unknown) not been using regularly due to sinus issues (unknown) (no (unknown) (unknown) DME: [employer] (units (u nknown) date) unknown) (unknown) (no (unknown) (unknown) : 1980 (units (unknown) date) Acct:[id number] unknown) (unknown) (no (unknown) (unknown) Denies bloating on (units (unknown) date) CPAP unknown) (unknown) (no (unknown) (unknown) Denies dyspnea at (units (unknown) date) night unknown) (unknown) (no (unknown) (unknown) Dept at (units (unkno wn) date) . unknown) (unknown) (no (unknown) (unknown) Details: (units (unkno wn) date) unknown) (unknown) (no (unknown) (unknown) Device data last (units (unknown) date) 60 days: unknown) (unknown) (no (unknown) (unknown) Device set (units (unk nown) date) up:12/16/2021 unknown) (unknown) (no (unknown) (unknown) Diskus) 1 inh (units ( unknown) date) inhalation BID unknown) 02/01/22 [History Confirmed 02/01/22] (unknown) (no (unknown) (unknown) Documented By: (units (unknown) date) Jason Lilly unknown) 02/01/22 1034 (unknown) (no (unknown) (unknown) Draft (units (unkno wn) date) unknown) (unknown) (no (unknown) (unknown) Drowsy driving (units (unknown) date) handout made unknown) available. (unknown) (no (unknown) (unknown) Ears: hearing (units ( unknown) date) grossly normal unknown) bilaterally (unknown) (no (unknown) (unknown) Effort + (units (unkno wn) date) Inspection: normal unknown) respiratory effort, able to speak in complete (unknown) (no (unknown) (unknown) Ensure adequate (units (unknown) date) exposure to natural unknown) light. This is particularly important for (unknown) (no (unknown) (unknown) [place] Score: 9 (units (unknown) date) unknown) (unknown) (no (unknown) (unknown) [place] Sleepiness (units (unknown) date) Scale score of unknown) 11/18 on Vyvanse. This can be seen secondary (unknown) (no (unknown) (unknown) [place] Sleepiness (units (unknown) date) Scale unknown) (unknown) (no (unknown) (unknown) Establish a regular (units (unknown) date) relaxing bedtime unknown) routine. Try to avoid emotionally upsetting (unknown) (no (unknown) (unknown) Exacerbating/Allev (units (unknown) date) iating Factors unknown) (unknown) (no (unknown) (unknown) Exam Narrative (units (unknown) date) unknown) (unknown) (no (unknown) (unknown) Exam Narrative: (units (unknown) date) unknown) (unknown) (no (unknown) (unknown) Exam (units (unkno wn) date) unknown) (unknown) (no (unknown) (unknown) Eyes (units (unkno wn) date) unknown) (unknown) (no (unknown) (unknown) Food can be (units (un known) date) disruptive right unknown) before sleep; stay away from large meals close to (unknown) (no (unknown) (unknown) GI (units (unkno wn) date) unknown) (unknown) (no (unknown) (unknown) General: (units (unkno wn) date) cooperative, unknown) comfortable and no acute distress (unknown) (no (unknown) (unknown) General: patient (units (unknown) date) alert, patient unknown) awake and patient oriented x3 (unknown) (no (unknown) (unknown) Get regular (units (un known) date) moderate exercise unknown) (30 minutes, 3x/week) (unknown) (no (unknown) (unknown) HENMT (units (unkno wn) date) unknown) (unknown) (no (unknown) (unknown) HPI Sleep Follow (units (unknown) date) Up unknown) (unknown) (no (unknown) (unknown) HPI (units (unkno wn) date) unknown) (unknown) (no (unknown) (unknown) Head: normal to (units (unknown) date) inspection unknown) (unknown) (no (unknown) (unknown) Height 5 ft 11 in (units (unknown) date) unknown) (unknown) (no (unknown) (unknown) Implications of (units (unknown) date) these findings were unknown) discussed. Next steps were discussed. Given (unknown) (no (unknown) (unknown) Insomnia has (units (u nknown) date) improved with PAP unknown) therapy. (unknown) (no (unknown) (unknown) Intake (units (unkno wn) date) unknown) (unknown) (no (unknown) (unknown) Light exposure (units (unknown) date) during the day unknown) helps maintain a healthy sleep-wake cycle. In (unknown) (no (unknown) (unknown) Loc: SLEEP (units (unk nown) date) unknown) (unknown) (no (unknown) (unknown) Lying down in the (units (unknown) date) afternoon: 2 = unknown) Moderate (unknown) (no (unknown) (unknown) Make sure that the (units (unknown) date) sleep environment unknown) is pleasant and relaxing. The bed should be (unknown) (no (unknown) (unknown) Mallampati score (units (unknown) date) of IV. Diagnostic unknown) sleep study was consistent with less than (unknown) (no (unknown) (unknown) Medications (units (un known) date) unknown) (unknown) (no (unknown) (unknown) Moderate chance of (units (unknown) date) dozing or sleeping, unknown) 3 = High chance of dozing or sleeping (unknown) (no (unknown) (unknown) Mood: congruent (units (unknown) date) mood unknown) (unknown) (no (unknown) (unknown) Neck (units (unkno wn) date) unknown) (unknown) (no (unknown) (unknown) Neck: normal (units (u nknown) date) visual inspection unknown) (unknown) (no (unknown) (unknown) Neuro (units (unkno wn) date) unknown) (unknown) (no (unknown) (unknown) No Known Drug (units ( unknown) date) Allergies Allergy unknown) (Verified 02/01/22 10:49) (unknown) (no (unknown) (unknown) PFSH (units (unkno wn) date) unknown) (unknown) (no (unknown) (unknown) Pain scale (1-10): (units (unknown) date) 4 unknown) (unknown) (no (unknown) (unknown) Pain (units (unkno wn) date) unknown) (unknown) (no (unknown) (unknown) Patient instructed (units (unknown) date) to use scheduled unknown) naps as needed for drowsiness safety (unknown) (no (unknown) (unknown) Patient prescribed (units (unknown) date) continued CPAP unknown) therapy at 9-15 cwp. No changes made today. (unknown) (no (unknown) (unknown) Patient reports a (units (unknown) date) history of snoring unknown) and a disturbed sleep pattern. There is (unknown) (no (unknown) (unknown) Patient reports (units (unknown) date) alcohol Sleep unknown) Alcohol Branch: never, reports caffeine Sleep (unknown) (no (unknown) (unknown) Patient reports (units (unknown) date) difficulty falling unknown) asleep is occasional (improving), difficulty (unknown) (no (unknown) (unknown) Patient reports (units (unknown) date) symptoms of chronic unknown) insomnia for more than 3 months as evidenced (unknown) (no (unknown) (unknown) Patient was (units (un known) date) encouraged to unknown) maintain PAP usage at a minimum of 4 hours a night, (unknown) (no (unknown) (unknown) Patient was (units (un known) date) instructed to avoid unknown) driving or operating heavy machinery when (unknown) (no (unknown) (unknown) Patient's (units (unkno wn) date) diagnostic sleep unknown) study was consistent with less than significant sleep (unknown) (no (unknown) (unknown) Patient: (units (unkno wn) date) Yadira Arrieta MR#: unknown) [id number] (unknown) (no (unknown) (unknown) Pertinent (units (unkn own) date) Positives/Negatives unknown) (unknown) (no (unknown) (unknown) Plan (units (unkno wn) date) unknown) (unknown) (no (unknown) (unknown) Please review the (units (unknown) date) following unknown) suggestins. (unknown) (no (unknown) (unknown) Position Sitting (units (unknown) date) unknown) (unknown) (no (unknown) (unknown) Prescription (units (u nknown) date) written for renewal unknown) of PAP supplies; (unknown) (no (unknown) (unknown) Properly timed (units (unknown) date) exercise can unknown) promote good sleep. Vigorous exercise should be (unknown) (no (unknown) (unknown) Psych (units (unkno wn) date) unknown) (unknown) (no (unknown) (unknown) Psychological (units ( unknown) date) unknown) (unknown) (no (unknown) (unknown) Pulse 73 (units (unkno wn) date) unknown) (unknown) (no (unknown) (unknown) Pulse Source (units (u nknown) date) Monitor unknown) (unknown) (no (unknown) (unknown) Questionnaires (units (unknown) date) unknown) (unknown) (no (unknown) (unknown) RDIs have been (units (unknown) date) 14.6, 19.1(with a unknown) little REM sleep) and 18.4. This is consistent (unknown) (no (unknown) (unknown) ROS Sleep (units (unkn own) date) unknown) (unknown) (no (unknown) (unknown) Reason For Visit (units (unknown) date) unknown) (unknown) (no (unknown) (unknown) Reports chest pain (units (unknown) date) (occasional, unknown) following with PCP, has had workup, states (unknown) (no (unknown) (unknown) Reports daytime (units (unknown) date) sleepiness and unknown) Denies difficulty sleeping (unknown) (no (unknown) (unknown) Reports napping on (units (unknown) date) occassion unknown) (unknown) (no (unknown) (unknown) Resp (units (unkno wn) date) unknown) (unknown) (no (unknown) (unknown) Respiration 16 (units (unknown) date) unknown) (unknown) (no (unknown) (unknown) Respiratory (units (un known) date) unknown) (unknown) (no (unknown) (unknown) Return visit in 6 (units (unknown) date) months to assess unknown) continued response to PAP therapy Patient was (unknown) (no (unknown) (unknown) SUBCUT QMONTH (units ( unknown) date) 02/01/22 [History unknown) Confirmed 02/01/22] (unknown) (no (unknown) (unknown) Sclera: sclerae (units (unknown) date) normal unknown) (unknown) (no (unknown) (unknown) Signed By: (units (unk nown) date) unknown) (unknown) (no (unknown) (unknown) Sitting and (units (un known) date) Readin = unknown) Moderate (unknown) (no (unknown) (unknown) Sitting and (units (un known) date) talking to someone: unknown) 0 = Never (None) (unknown) (no (unknown) (unknown) Sitting inactive (units (unknown) date) in a public place: unknown) 0 = Never (None) (unknown) (no (unknown) (unknown) Sitting quietly (units (unknown) date) after lunch (no unknown) alcohol): 2 = Moderate (unknown) (no (unknown) (unknown) Sleep Visit (units (un known) date) unknown) (unknown) (no (unknown) (unknown) [facility] unknown) (unknown) (no (unknown) (unknown) Smoking Status: (units (unknown) date) Never smoker unknown) (unknown) (no (unknown) (unknown) Speech and (units (unk nown) date) Movement: speech unknown) and movement normal (unknown) (no (unknown) (unknown) Speech: speech (units (unknown) date) normal unknown) (unknown) (no (unknown) (unknown) Stopped for a few (units (unknown) date) minutes in traffic: unknown) 1 = Slight (unknown) (no (unknown) (unknown) Symptoms (units (unkno wn) date) unknown) (unknown) (no (unknown) (unknown) Temp 97.2 F L (units ( unknown) date) unknown) (unknown) (no (unknown) (unknown) Temp Source (units (un known) date) Temporal Artery unknown) Scan (unknown) (no (unknown) (unknown) The basics of the (units (unknown) date) pathophysiology of unknown) sleep apnea and the effect on sleep in (unknown) (no (unknown) (unknown) The patient (units (un known) date) reports symptoms of unknown) excessive daytime sleepiness as evidenced by (unknown) (no (unknown) (unknown) This can be seen (units (unknown) date) secondary to sleep unknown) apnea, depression, medical conditions or can (unknown) (no (unknown) (unknown) This is consistent (units (unknown) date) with nocturnal unknown) respiratory disturbance or UARS. CPAP was (unknown) (no (unknown) (unknown) This note may have (units (unknown) date) been all or unknown) partially generated using voice recognition (unknown) (no (unknown) (unknown) Tobacco + (units (unkn own) date) Substance Use unknown) (unknown) (no (unknown) (unknown) Tobacco Status (units (unknown) date) unknown) (unknown) (no (unknown) (unknown) Treatment Effects: (units (unknown) date) Pap Treatment unknown) Response/Side Effects: adherent to current PAP (unknown) (no (unknown) (unknown) Treatment (units (unkn own) date) Response/Side unknown) Affects (unknown) (no (unknown) (unknown) 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 History of snoring and a disturbed (unknown) (no (unknown) (unknown) Usage: 56.7% (34 (units (unknown) date) days) with 51.7% unknown) greater than 4 hours. Leak 9 seconds. (unknown) (no (unknown) (unknown) Visit Reasons: 2M (units (unknown) date) comp unknown) (unknown) (no (unknown) (unknown) Visit type (FU): (units (unknown) date) follow up of [facility] unknown) therapy (Follow up UARS) Follow up evaluation (unknown) (no (unknown) (unknown) Vitals (units (unkno wn) date) unknown) (unknown) (no (unknown) (unknown) Watching TV: 2 = (units (unknown) date) Moderate unknown) (unknown) (no (unknown) (unknown) Weight 287 lb (units ( unknown) date) unknown) (unknown) (no (unknown) (unknown) While alcohol is (units (unknown) date) well known to speed unknown) the onset of sleep, it disrupts sleep in (unknown) (no (unknown) (unknown) [History Confirmed (units (unknown) date) 02/01/22] unknown) (unknown) (no (unknown) (unknown) a repeat sleep (units (unknown) date) study with the use unknown) of a hypnotic was indicated. this third study (unknown) (no (unknown) (unknown) activities, you (units (unknown) date) may have more unknown) problems getting back to sleep during the night. (unknown) (no (unknown) (unknown) addition, avoiding (units (unknown) date) nighttime bright unknown) light exposure, which can occur with many (unknown) (no (unknown) (unknown) again showed little (units (unknown) date) to no rem sleep, unknown) poor quality sleep and an elevated RDI. the (unknown) (no (unknown) (unknown) albuterol 02/01/22 (units (unknown) date) [History] unknown) (unknown) (no (unknown) (unknown) also a history of (units (unknown) date) depression and unknown) chronic insomnia with a Mallampati score of IV. (unknown) (no (unknown) (unknown) and her elevated (units (unknown) date) RDI, a repeat sleep unknown) study with the use of a hypnotic was (unknown) (no (unknown) (unknown) and wakefulness. (units (unknown) date) Scheduled napping unknown) may be considered if appropriate for the opti (unknown) (no (unknown) (unknown) apnea, no snoring, (units (unknown) date) some desaturation unknown) events and no significant leg movements. (unknown) (no (unknown) (unknown) approved. (units (unkn own) date) unknown) (unknown) (no (unknown) (unknown) azelastine-flutica (units (unknown) date) sone 137 mcg-50 unknown) mcg/spray nasal spray (Dymista) 1 spray (unknown) (no (unknown) (unknown) be an independent (units (unknown) date) problem. Sleep unknown) hygiene and sleep schedules were discussed. (unknown) (no (unknown) (unknown) bedtime. Also (units (u nknown) date) dietary changes can unknown) cause sleep problems, if someone is struggling (unknown) (no (unknown) (unknown) being registered (units (unknown) date) for unknown reason. unknown) Reports no issues with the machine, mask or (unknown) (no (unknown) (unknown) bring your (units (unk nown) date) problems to bed. unknown) (unknown) (no (unknown) (unknown) bruxism Bruxism (units (unknown) date) Branch: currently unknown) (does not wear the mouth guard) (unknown) (no (unknown) (unknown) but increased (units ( unknown) date) benefit from more unknown) usage was also explained. (unknown) (no (unknown) (unknown) but overall likes (units (unknown) date) using the machine. unknown) She also states some of the days were not (unknown) (no (unknown) (unknown) by trouble falling (units (unknown) date) asleep, trouble unknown) staying asleep and non-restorative sleep. (unknown) (no (unknown) (unknown) clinical history (units (unknown) date) it was determined unknown) that a diagnostic sleep study was indicated. (unknown) (no (unknown) (unknown) comfortable, the (units (unknown) date) room should be unknown) quiet, not too hot or cold, or too bright. (unknown) (no (unknown) (unknown) conversations and (units (unknown) date) activities before unknown) trying to go to sleep. Don't dwell on, or (unknown) (no (unknown) (unknown) daytime sleeping (units (unknown) date) complaints of unknown) sleepiness at work and drowsy driving with an (unknown) (no (unknown) (unknown) decreased daytime (units (unknown) date) sleepiness. She is unknown) clearly benefitting from PAP therapy and (unknown) (no (unknown) (unknown) denies heart burn (units (unknown) date) symptoms at night, unknown) reports nocturia (2-4 times per night), (unknown) (no (unknown) (unknown) denies night (units (u nknown) date) sweats, reports unknown) morning headache (chronic migraine, improved), (unknown) (no (unknown) (unknown) diclofenac sodium (units (unknown) date) 75 mg unknown) tablet,delayed release 75 mg PO BID PRN 02/01/22 (unknown) (no (unknown) (unknown) dishes. And, (units (u nknown) date) remember, chocolate unknown) has caffeine. (unknown) (no (unknown) (unknown) done before bed to (units (unknown) date) help initiate a unknown) restful night's sleep. (unknown) (no (unknown) (unknown) doxycycline (units (un known) date) hyclate 50 mg unknown) tablet 50 mg PO DAILY 02/01/22 [History Confirmed (unknown) (no (unknown) (unknown) drowsy. (units (unkno wn) date) unknown) (unknown) (no (unknown) (unknown) duloxetine 30 mg (units (unknown) date) capsule,delayed unknown) release 30 mg PO DAILY 02/01/22 [History (unknown) (no (unknown) (unknown) duloxetine 60 mg (units (unknown) date) capsule,delayed unknown) release 60 mg PO DAILY 02/01/22 [History (unknown) (no (unknown) (unknown) elevated RDI. the (units (unknown) date) RDIs have been unknown) 14.6, 19.1(with a little REM sleep) and 18.4. (unknown) (no (unknown) (unknown) epinephrine 0.3 (units (unknown) date) mg/0.3 mL unknown) injection, auto-injector 0.3 mg IM ONCE 02/01/22 (unknown) (no (unknown) (unknown) erenumab-aooe 70 (units (unknown) date) mg/mL subcutaneous unknown) auto-injector ([employer] Autoinjector) 70 mg (unknown) (no (unknown) (unknown) fluticasone 500 (units (unknown) date) mcg-salmeterol 50 unknown) mcg/dose blistr powdr for inhalation (Advair (unknown) (no (unknown) (unknown) frovatriptan 2.5 (units (unknown) date) mg tablet 2.5 mg PO unknown) ONCE 02/01/22 [History Confirmed 02/01/22] (unknown) (no (unknown) (unknown) gabapentin 300 mg (units (unknown) date) capsule 300 mg PO unknown) TID 02/01/22 [History Confirmed 02/01/22] (unknown) (no (unknown) (unknown) gasping Choking or (units (unknown) date) Gasping Branch: unknown) denied, epworth sleep scale score (02/18) and (unknown) (no (unknown) (unknown) general were (units (u nknown) date) discussed at unknown) length. After review of the physical findings and (unknown) (no (unknown) (unknown) have occurred. If (units (unknown) date) there are any unknown) questions, please contact the Medical Records (unknown) (no (unknown) (unknown) her sleep issues, (units (unknown) date) low REM sleep unknown) amount on the sleep study and her elevated RDI, (unknown) (no (unknown) (unknown) ibuprofen 200 mg (units (unknown) date) tablet 800 mg PO unknown) Q6H PRN 02/01/22 [History Confirmed 02/01/22] (unknown) (no (unknown) (unknown) indicated to (units (u nknown) date) determine to what unknown) extent this is contributing to her poor quality (unknown) (no (unknown) (unknown) indicated. Study (units (unknown) date) again showed little unknown) to no rem sleep, poor quality sleep and an (unknown) (no (unknown) (unknown) initiated. (units (unk nown) date) unknown) (unknown) (no (unknown) (unknown) instructed to (units ( unknown) date) return sooner if unknown) any questions or concerns arise. (unknown) (no (unknown) (unknown) intranasal BID (units (unknown) date) 02/01/22 [History unknown) Confirmed 02/01/22] (unknown) (no (unknown) (unknown) is willing to (units ( unknown) date) continue. unknown) (unknown) (no (unknown) (unknown) lamotrigine 200 mg (units (unknown) date) tablet,extended unknown) release 24 hr 200 mg PO DAILY 02/01/22 (unknown) (no (unknown) (unknown) leg movements. (units (unknown) date) Given her sleep unknown) issues, low REM sleep amount on the sleep study (unknown) (no (unknown) (unknown) levocetirizine 5 (units (unknown) date) mg tablet 5 mg PO unknown) DAILY 02/01/22 [History Confirmed 02/01/22] (unknown) (no (unknown) (unknown) lisdexamfetamine (units (unknown) date) 60 mg capsule unknown) (Vyvanse) 60 mg PO DAILY 02/01/22 [History (unknown) (no (unknown) (unknown) listen to the (units ( unknown) date) radio, or read as unknown) if you associate falling asleep with these (unknown) (no (unknown) (unknown) mal sleep (units (unkn own) date) schedule. unknown) (unknown) (no (unknown) (unknown) may occur. (units (unk nown) date) Occasional unknown) wrong-word or 'sound-alike' substitutions may have (unknown) (no (unknown) (unknown) metoclopramide HCl (units (unknown) date) 10 mg tablet 10 mg unknown) PO QAC 02/01/22 [History Confirmed (unknown) (no (unknown) (unknown) morning (units (unkno wn) date) (sometimes), denies unknown) nocturnal cough, denies nocturnal palpitations, (unknown) (no (unknown) (unknown) nothing was found) (units (unknown) date) unknown) (unknown) (no (unknown) (unknown) occurred due to (units (unknown) date) the inherent unknown) limitations of voice recognition software. Please (unknown) (no (unknown) (unknown) of [facility] therapy: (units (unknown) date) CPAP (5-15 cwp) unknown) (unknown) (no (unknown) (unknown) older people who (units (unknown) date) may not venture unknown) outside as frequently as children and adults. (unknown) (no (unknown) (unknown) omeprazole 40 mg (units (unknown) date) capsule,delayed unknown) release 40 mg PO DAILY 02/01/22 [History (unknown) (no (unknown) (unknown) on PAP well, sleep (units (unknown) date) quality well and unknown) daytime sleepiness Daytime Sleepiness Branch (unknown) (no (unknown) (unknown) personal (units (unkno wn) date) electronic devices, unknown) can also help maintain a healthy sleep-wake cycle. (unknown) (no (unknown) (unknown) pressure. Showing (units (unknown) date) positive unknown) improvement as evidenced by better sleep and (unknown) (no (unknown) (unknown) problem. Risks and (units (unknown) date) symptoms of unknown) drowsiness were reviewed. Symptoms have improved (unknown) (no (unknown) (unknown) read the note (units ( unknown) date) carefully and unknown) recognize, using context, where these substitutions (unknown) (no (unknown) (unknown) reports anxiety (units (unknown) date) unknown) (unknown) (no (unknown) (unknown) reports nasal (units (u nknown) date) congestion at unknown) night, reports dry mouth, reports sore throat in the (unknown) (no (unknown) (unknown) reports pain (units (un known) date) (sometimes, unknown) headaches, neck pain), reports dizziness in the morning (unknown) (no (unknown) (unknown) reports sleeping (units (unknown) date) pills (gabapentin) unknown) (unknown) (no (unknown) (unknown) rizatriptan 10 mg (units (unknown) date) tablet 10 mg PO unknown) ONCE 02/01/22 [History Confirmed 02/01/22] (unknown) (no (unknown) (unknown) sentences and no (units (unknown) date) audible wheezes unknown) (unknown) (no (unknown) (unknown) significant sleep (units (unknown) date) apnea, no snoring, unknown) some desaturation events and no significant (unknown) (no (unknown) (unknown) sleep and daytime (units (unknown) date) sleepiness. Her unknown) insurance will be contracted to determine if (unknown) (no (unknown) (unknown) sleep pattern. (units ( unknown) date) There is also a unknown) history of depression and chronic insomnia with a (unknown) (no (unknown) (unknown) software. Although (units (unknown) date) every effort is unknown) made to edit content, garde manger errors (unknown) (no (unknown) (unknown) somnolence (units (unk nown) date) occasional, snoring unknown) not appreciated, apnea not witnessed, choking or (unknown) (no (unknown) (unknown) spending time in (units (unknown) date) bed not sleeping unknown) moderate, normal bedtime ([id number]), normal (unknown) (no (unknown) (unknown) staying asleep (units (unknown) date) intermittent unknown) (improving), machine taper awakening frequent, (unknown) (no (unknown) (unknown) taken in the (units (u nknown) date) morning or late unknown) afternoon. A relaxing exercise, like yoga, can be (unknown) (no (unknown) (unknown) the day (units (unkno wn) date) (sometimes), unknown) reports depression (controlled with medications) and (unknown) (no (unknown) (unknown) the second half as (units (unknown) date) the body begins to unknown) metabolize the alcohol, causing arousal. (unknown) (no (unknown) (unknown) the therapy will (units (unknown) date) be covered. She is unknown) willing to proceed with PAP therapy if (unknown) (no (unknown) (unknown) to sleep apnea, (units (unknown) date) insomnia, unknown) depression, medical conditions or can be a primary (unknown) (no (unknown) (unknown) treatment (units (unkn own) date) improving on unknown) treatment (unknown) (no (unknown) (unknown) verapamil 120 mg (units (unknown) date) 24 hr unknown) capsule,extended release 120 mg PO BID 02/01/22 [History (unknown) (no (unknown) (unknown) wake time (units (unkno wn) date) ([id number]), sleep unknown) schedule Sleep Schedule Branch: consistent, daytime (unknown) (no (unknown) (unknown) with PAP therapy. (units (unknown) date) unknown) (unknown) (no (unknown) (unknown) with a sleep (units (u nknown) date) problem, it's not a unknown) good time to start experimenting with spicy (unknown) (no (unknown) (unknown) with nocturnal (units (unknown) date) respiratory unknown) disturbance or UARS. Treatment with CPAP therapy is Result panel 9 (unknown) (no (unknown) (unknown) (no value) (units (unk nown) date) unknown) (unknown) (no (unknown) (unknown) (1) (units (unkno wn) date) Breathing-related unknown) sleep disorder: (unknown) (no (unknown) (unknown) (2) Insomnia: (units ( unknown) date) unknown) (unknown) (no (unknown) (unknown) (3) Excessive (units ( unknown) date) daytime sleepiness: unknown) (unknown) (no (unknown) (unknown) (vestibular (units (un known) date) migraines, unknown) improved), reports trouble consentrating/focus ing durng (unknown) (no (unknown) (unknown) 0 = Would never (units (unknown) date) doze or sleep, 1 = unknown) Slight chance of dozing or sleeping, 2 = (unknown) (no (unknown) (unknown) 02/01/22 1727 (units ( unknown) date) unknown) (unknown) (no (unknown) (unknown) 02/01/22 (units (unkno wn) date) unknown) (unknown) (no (unknown) (unknown) 02/01/22] (units (unkn own) date) unknown) (unknown) (no (unknown) (unknown) 10:49 (units (unkno wn) date) unknown) (unknown) (no (unknown) (unknown) 14.6, 19.1(with a (units (unknown) date) little REM sleep) unknown) and 18.4. This is consistent with nocturnal (unknown) (no (unknown) (unknown) 2: better (units (unkn own) date) unknown) (unknown) (no (unknown) (unknown) [id number] (units (unkno wn) date) unknown) (unknown) (no (unknown) (unknown) ADHD, Vyvase (units (u nknown) date) prescribed by unknown[place] (no (unknown) (unknown) AHIflow: 1.4 (units (u nknown) date) unknown) (unknown) (no (unknown) (unknown) Adhere to regular (units (unknown) date) mealtime schedule, unknown) avoid snacking (unknown) (no (unknown) (unknown) Affect: normal (units (unknown) date) affect unknown) (unknown) (no (unknown) (unknown) Age/Sex: 41 / F (units (unknown) date) Date of Service: unknown) (unknown) (no (unknown) (unknown) Allergies (units (unkn own) date) unknown) (unknown) (no (unknown) (unknown) [place], [place] (units ( unknown) date) [id number] unknown) (unknown) (no (unknown) (unknown) Appearance: (units (un known) date) grossly normal unknown) (unknown) (no (unknown) (unknown) Assessment + Plan (units (unknown) date) unknown) (unknown) (no (unknown) (unknown) Assessment and (units (unknown) date) Plan: unknown) (unknown) (no (unknown) (unknown) Associate your bed (units (unknown) date) with sleep. It's unknown) not a good idea to use your bed to watch TV, (unknown) (no (unknown) (unknown) Attending Dr: (units ( unknown) date) Jason MADRIGAL unknown) (unknown) (no (unknown) (unknown) Attitude: (units (unkn own) date) cooperative unknown) (unknown) (no (unknown) (unknown) Auto CPAP set (units ( unknown) date) pressures: 5-15 CWP unknown) (unknown) (no (unknown) (unknown) Avoid alcohol (units ( unknown) date) after 4 pm unknown) (unknown) (no (unknown) (unknown) Avoid medications (units (unknown) date) which may interfere unknown) with sleep (unknown) (no (unknown) (unknown) Avoid random (units (u nknown) date) napping during the unknown) day; it can disturb the normal pattern of sleep (unknown) (no (unknown) (unknown) Avoid stimulants (units (unknown) date) such as caffeine, unknown) nicotine, and alcohol too close to bedtime. (unknown) (no (unknown) (unknown) BMI 40.0 (units (unkno wn) date) unknown) (unknown) (no (unknown) (unknown) BP 147/90 H (units (un known) date) unknown) (unknown) (no (unknown) (unknown) Being a passenger (units (unknown) date) in a motor vehicle unknown) for an hour or so: 0 = Never (None) (unknown) (no (unknown) (unknown) Blood Pressure (units (unknown) date) Location Lt unknown) brachial (unknown) (no (unknown) (unknown) Caffeine Branch: (units (unknown) date) 1-5 servings a day, unknown) reports stimulant therapy (Vyvanse) and (unknown) (no (unknown) (unknown) Cardiac (units (unkno wn) date) unknown) (unknown) (no (unknown) (unknown) Chief Complaint: (units (unknown) date) Follow up CPAP unknown) therapy for UARS (unknown) (no (unknown) (unknown) Clinical Course (units (unknown) date) unknown) (unknown) (no (unknown) (unknown) Cognition: normal (units (unknown) date) cognition unknown) (unknown) (no (unknown) (unknown) Condition is (units (u nknown) date) Onset: Chronic and unknown) ongoing condition (unknown) (no (unknown) (unknown) Confirmed (units (unkn own) date) 02/01/22] unknown) (unknown) (no (unknown) (unknown) Conjunctivae: (units ( unknown) date) conjunctivae normal unknown) (unknown) (no (unknown) (unknown) Consider weaning (units (unknown) date) caffeine use, unknown) starting with no caffeine after 3pm (unknown) (no (unknown) (unknown) Const (units (unkno wn) date) unknown) (unknown) (no (unknown) (unknown) Currently using (units (unknown) date) CPAP 5-15 cwp. Has unknown) not been using regularly due to sinus issues (unknown) (no (unknown) (unknown) Currently using (units (unknown) date) CPAP at 5-15 CWP. unknown) Compliance data reviewed, implications of (unknown) (no (unknown) (unknown) DME: [employer] (units (u nknown) date) unknown) (unknown) (no (unknown) (unknown) : 1980 (units (unknown) date) Acct:[id number] unknown) (unknown) (no (unknown) (unknown) Denies bloating on (units (unknown) date) CPAP unknown) (unknown) (no (unknown) (unknown) Denies dyspnea at (units (unknown) date) night unknown) (unknown) (no (unknown) (unknown) Details: (units (unkno wn) date) unknown) (unknown) (no (unknown) (unknown) Device data last (units (unknown) date) 60 days: unknown) (unknown) (no (unknown) (unknown) Device set (units (unk nown) date) up:12/16/2021 unknown) (unknown) (no (unknown) (unknown) Diskus) 1 inh (units ( unknown) date) inhalation BID unknown) 02/01/22 [History Confirmed 02/01/22] (unknown) (no (unknown) (unknown) Documented By: (units (unknown) date) Jason Lilly unknown) 02/01/22 1034 (unknown) (no (unknown) (unknown) Drowsy driving (units (unknown) date) handout made unknown) available. (unknown) (no (unknown) (unknown) Ears: hearing (units ( unknown) date) grossly normal unknown) bilaterally (unknown) (no (unknown) (unknown) Effort + (units (unkno wn) date) Inspection: normal unknown) respiratory effort, able to speak in complete (unknown) (no (unknown) (unknown) Ensure adequate (units (unknown) date) exposure to natural unknown) light. This is particularly important for (unknown) (no (unknown) (unknown) [place] Score: 9 (units (unknown) date) unknown) (unknown) (no (unknown) (unknown) [place] Sleepiness (units (unknown) date) Scale score of unknown) 02/18 on Vyvanse. This can be seen secondary (unknown) (no (unknown) (unknown) [place] Sleepiness (units (unknown) date) Scale unknown) (unknown) (no (unknown) (unknown) Establish a regular (units (unknown) date) relaxing bedtime unknown) routine. Try to avoid emotionally upsetting (unknown) (no (unknown) (unknown) Exacerbating/Allev (units (unknown) date) iating Factors unknown) (unknown) (no (unknown) (unknown) Exam Narrative (units (unknown) date) unknown) (unknown) (no (unknown) (unknown) Exam Narrative: (units (unknown) date) unknown) (unknown) (no (unknown) (unknown) Exam (units (unkno wn) date) unknown) (unknown) (no (unknown) (unknown) Eyes (units (unkno wn) date) unknown) (unknown) (no (unknown) (unknown) Food can be (units (un known) date) disruptive right unknown) before sleep; stay away from large meals close to (unknown) (no (unknown) (unknown) GI (units (unkno wn) date) unknown) (unknown) (no (unknown) (unknown) General: (units (unkno wn) date) cooperative, unknown) comfortable and no acute distress (unknown) (no (unknown) (unknown) General: patient (units (unknown) date) alert, patient unknown) awake and patient oriented x3 (unknown) (no (unknown) (unknown) Get regular (units (un known) date) moderate exercise unknown) (30 minutes, 3x/week) (unknown) (no (unknown) (unknown) Given her sleep (units (unknown) date) issues, low REM unknown) sleep amount on the sleep study and her elevated (unknown) (no (unknown) (unknown) HENMT (units (unkno wn) date) unknown) (unknown) (no (unknown) (unknown) HPI Sleep Follow (units (unknown) date) Up unknown) (unknown) (no (unknown) (unknown) HPI (units (unkno wn) date) unknown) (unknown) (no (unknown) (unknown) Head: normal to (units (unknown) date) inspection unknown) (unknown) (no (unknown) (unknown) Height 180.34 cm (units (unknown) date) unknown) (unknown) (no (unknown) (unknown) Insomnia has (units (u nknown) date) improved with PAP unknown) therapy. (unknown) (no (unknown) (unknown) Insomnia type: (units (unknown) date) unspecified unknown) Qualified Code(s): G47.00 - Insomnia, (unknown) (no (unknown) (unknown) Intake (units (unkno wn) date) unknown) (unknown) (no (unknown) (unknown) Light exposure (units (unknown) date) during the day unknown) helps maintain a healthy sleep-wake cycle. In (unknown) (no (unknown) (unknown) Loc: SLEEP (units (unk nown) date) unknown) (unknown) (no (unknown) (unknown) Lying down in the (units (unknown) date) afternoon: 2 = unknown) Moderate (unknown) (no (unknown) (unknown) Make sure that the (units (unknown) date) sleep environment unknown) is pleasant and relaxing. The bed should be (unknown) (no (unknown) (unknown) Mallampati score (units (unknown) date) of IV. Diagnostic unknown) sleep study was consistent with less than (unknown) (no (unknown) (unknown) Medications (units (un known) date) unknown) (unknown) (no (unknown) (unknown) Moderate chance of (units (unknown) date) dozing or sleeping, unknown) 3 = High chance of dozing or sleeping (unknown) (no (unknown) (unknown) Mood: congruent (units (unknown) date) mood unknown) (unknown) (no (unknown) (unknown) Neck (units (unkno wn) date) unknown) (unknown) (no (unknown) (unknown) Neck: normal (units (u nknown) date) visual inspection unknown) (unknown) (no (unknown) (unknown) Neuro (units (unkno wn) date) unknown) (unknown) (no (unknown) (unknown) No Known Drug (units ( unknown) date) Allergies Allergy unknown) (Verified 02/01/22 10:49) (unknown) (no (unknown) (unknown) PFSH (units (unkno wn) date) unknown) (unknown) (no (unknown) (unknown) Pain scale (1-10): (units (unknown) date) 4 unknown) (unknown) (no (unknown) (unknown) Pain (units (unkno wn) date) unknown) (unknown) (no (unknown) (unknown) Patient instructed (units (unknown) date) to use scheduled unknown) naps as needed for drowsiness safety (unknown) (no (unknown) (unknown) Patient prescribed (units (unknown) date) continued CPAP unknown) therapy at 5-15 cwp. No changes made today. (unknown) (no (unknown) (unknown) Patient reports (units (unknown) date) alcohol Sleep unknown) Alcohol Branch: never, reports caffeine Sleep (unknown) (no (unknown) (unknown) Patient reports (units (unknown) date) difficulty falling unknown) asleep is occasional (improving), difficulty (unknown) (no (unknown) (unknown) Patient reports (units (unknown) date) symptoms of chronic unknown) insomnia for more than 3 months as evidenced (unknown) (no (unknown) (unknown) Patient was (units (un known) date) encouraged to unknown) maintain PAP usage at a minimum of 4 hours a night, (unknown) (no (unknown) (unknown) Patient was (units (un known) date) instructed to avoid unknown) driving or operating heavy machinery when (unknown) (no (unknown) (unknown) Patient: (units (unkno wn) date) Yadira Arrieta MR#: unknown) [id number] (unknown) (no (unknown) (unknown) Pertinent (units (unkn own) date) Positives/Negatives unknown) (unknown) (no (unknown) (unknown) Plan (units (unkno wn) date) unknown) (unknown) (no (unknown) (unknown) Please review the (units (unknown) date) following unknown) suggestins. (unknown) (no (unknown) (unknown) Position Sitting (units (unknown) date) unknown) (unknown) (no (unknown) (unknown) Prescription (units (u nknown) date) written for renewal unknown) of PAP supplies; (unknown) (no (unknown) (unknown) Properly timed (units (unknown) date) exercise can unknown) promote good sleep. Vigorous exercise should be (unknown) (no (unknown) (unknown) Psych (units (unkno wn) date) unknown) (unknown) (no (unknown) (unknown) Psychological (units ( unknown) date) unknown) (unknown) (no (unknown) (unknown) Pulse 73 (units (unkno wn) date) unknown) (unknown) (no (unknown) (unknown) Pulse Source (units (u nknown) date) Monitor unknown) (unknown) (no (unknown) (unknown) Qualifiers: (units (un known) date) unknown) (unknown) (no (unknown) (unknown) Questionnaires (units (unknown) date) unknown) (unknown) (no (unknown) (unknown) RDI, her third (units (unknown) date) sleep study was unknown) completed with the use of a hypnotic. This third (unknown) (no (unknown) (unknown) RDI. RDIs have (units (unknown) date) been 14.6, unknown) 19.1(with a little REM sleep) and 18.4. This is (unknown) (no (unknown) (unknown) ROS Sleep (units (unkn own) date) unknown) (unknown) (no (unknown) (unknown) Reason For Visit (units (unknown) date) unknown) (unknown) (no (unknown) (unknown) Reports chest pain (units (unknown) date) (occasional, unknown) following with PCP, has had workup, states (unknown) (no (unknown) (unknown) Reports daytime (units (unknown) date) sleepiness and unknown) Denies difficulty sleeping (unknown) (no (unknown) (unknown) Reports napping on (units (unknown) date) occassion unknown) (unknown) (no (unknown) (unknown) Resp (units (unkno wn) date) unknown) (unknown) (no (unknown) (unknown) Respiration 16 (units (unknown) date) unknown) (unknown) (no (unknown) (unknown) Respiratory (units (un known) date) unknown) (unknown) (no (unknown) (unknown) Return visit in 6 (units (unknown) date) months to assess unknown) continued response to PAP therapy Patient was (unknown) (no (unknown) (unknown) SUBCUT QMONTH (units ( unknown) date) 02/01/22 [History unknown) Confirmed 02/01/22] (unknown) (no (unknown) (unknown) Sclera: sclerae (units (unknown) date) normal unknown) (unknown) (no (unknown) (unknown) Signed By: (units (unk nown) date) <Electronically unknown) signed by Jason Lilly> (unknown) (no (unknown) (unknown) Signed (units (unkno wn) date) unknown) (unknown) (no (unknown) (unknown) Sitting and (units (un known) date) Readin = unknown) Moderate (unknown) (no (unknown) (unknown) Sitting and (units (un known) date) talking to someone: unknown) 0 = Never (None) (unknown) (no (unknown) (unknown) Sitting inactive (units (unknown) date) in a public place: unknown) 0 = Never (None) (unknown) (no (unknown) (unknown) Sitting quietly (units (unknown) date) after lunch (no unknown) alcohol): 2 = Moderate (unknown) (no (unknown) (unknown) Sleep Visit (units (un known) date) unknown) (unknown) (no (unknown) (unknown) [facility]) (unknown) (no (unknown) (unknown) Smoking Status: (units (unknown) date) Never smoker unknown) (unknown) (no (unknown) (unknown) Speech and (units (unk nown) date) Movement: speech unknown) and movement normal (unknown) (no (unknown) (unknown) Speech: speech (units (unknown) date) normal unknown) (unknown) (no (unknown) (unknown) Stopped for a few (units (unknown) date) minutes in traffic: unknown) 1 = Slight (unknown) (no (unknown) (unknown) Symptoms (units (unkno wn) date) unknown) (unknown) (no (unknown) (unknown) Temp 97.2 F L (units ( unknown) date) unknown) (unknown) (no (unknown) (unknown) Temp Source (units (un known) date) Temporal Artery unknown) Scan (unknown) (no (unknown) (unknown) The patient (units (un known) date) reports symptoms of unknown) excessive daytime sleepiness as evidenced by (unknown) (no (unknown) (unknown) This can be seen (units (unknown) date) secondary to sleep unknown) apnea, depression, medical conditions or can (unknown) (no (unknown) (unknown) This note may have (units (unknown) date) been all or unknown) partially generated using voice recognition (unknown) (no (unknown) (unknown) Tobacco + (units (unkn own) date) Substance Use unknown) (unknown) (no (unknown) (unknown) Tobacco Status (units (unknown) date) unknown) (unknown) (no (unknown) (unknown) Treatment Effects: (units (unknown) date) Pap Treatment unknown) Response/Side Effects: adherent to current PAP (unknown) (no (unknown) (unknown) Treatment (units (unkn own) date) Response/Side unknown) Affects (unknown) (no (unknown) (unknown) UARS. History of (units (unknown) date) snoring and a unknown) disturbed sleep pattern. 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 History of snoring and a disturbed (unknown) (no (unknown) (unknown) Usage: 56.7% (34 (units (unknown) date) days) with 51.7% unknown) greater than 4 hours. Leak 9 seconds. (unknown) (no (unknown) (unknown) Visit Reasons: 2M (units (unknown) date) comp unknown) (unknown) (no (unknown) (unknown) Visit type (FU): (units (unknown) date) follow up of [facility] unknown) therapy (Follow up UARS) Follow up evaluation (unknown) (no (unknown) (unknown) Vitals (units (unkno wn) date) unknown) (unknown) (no (unknown) (unknown) Watching TV: 2 = (units (unknown) date) Moderate unknown) (unknown) (no (unknown) (unknown) Weight 130.181 kg (units (unknown) date) unknown) (unknown) (no (unknown) (unknown) While alcohol is (units (unknown) date) well known to speed unknown) the onset of sleep, it disrupts sleep in (unknown) (no (unknown) (unknown) [History Confirmed (units (unknown) date) 02/01/22] unknown) (unknown) (no (unknown) (unknown) activities, you (units (unknown) date) may have more unknown) problems getting back to sleep during the night. (unknown) (no (unknown) (unknown) addition, avoiding (units (unknown) date) nighttime bright unknown) light exposure, which can occur with many (unknown) (no (unknown) (unknown) albuterol 02/01/22 (units (unknown) date) [History] unknown) (unknown) (no (unknown) (unknown) and her elevated (units (unknown) date) RDI, a repeat sleep unknown) study with the use of a hypnotic was (unknown) (no (unknown) (unknown) and wakefulness. (units (unknown) date) Scheduled napping unknown) may be considered if appropriate for the (unknown) (no (unknown) (unknown) apnea, no snoring, (units (unknown) date) some desaturation unknown) events and no significant leg movements. (unknown) (no (unknown) (unknown) at . (units (unknown) date) unknown) (unknown) (no (unknown) (unknown) azelastine-flutica (units (unknown) date) sone 137 mcg-50 unknown) mcg/spray nasal spray (Dymista) 1 spray (unknown) (no (unknown) (unknown) be an independent (units (unknown) date) problem. Sleep unknown) hygiene and sleep schedules were discussed. (unknown) (no (unknown) (unknown) bedtime. Also (units (u nknown) date) dietary changes can unknown) cause sleep problems, if someone is struggling (unknown) (no (unknown) (unknown) being registered (units (unknown) date) for unknown reason. unknown) Reports no issues with the machine, mask or (unknown) (no (unknown) (unknown) bring your (units (unk nown) date) problems to bed. unknown) (unknown) (no (unknown) (unknown) bruxism Bruxism (units (unknown) date) Branch: currently unknown) (does not wear the mouth guard) (unknown) (no (unknown) (unknown) but increased (units ( unknown) date) benefit from more unknown) usage was also explained. (unknown) (no (unknown) (unknown) but overall likes (units (unknown) date) using the machine. unknown) She also states some of the days were not (unknown) (no (unknown) (unknown) by trouble falling (units (unknown) date) asleep, trouble unknown) staying asleep and non-restorative sleep. (unknown) (no (unknown) (unknown) comfortable, the (units (unknown) date) room should be unknown) quiet, not too hot or cold, or too bright. (unknown) (no (unknown) (unknown) consistent with (units (unknown) date) nocturnal unknown) respiratory disturbance or UARS. Treatment with CPAP (unknown) (no (unknown) (unknown) conversations and (units (unknown) date) activities before unknown) trying to go to sleep. Don't dwell on, or (unknown) (no (unknown) (unknown) daytime sleeping (units (unknown) date) complaints of unknown) sleepiness at work and drowsy driving with an (unknown) (no (unknown) (unknown) decreased daytime (units (unknown) date) sleepiness. She is unknown) clearly benefitting from PAP therapy and (unknown) (no (unknown) (unknown) denies heart burn (units (unknown) date) symptoms at night, unknown) reports nocturia (2-4 times per night), (unknown) (no (unknown) (unknown) denies night (units (u nknown) date) sweats, reports unknown) morning headache (chronic migraine, improved), (unknown) (no (unknown) (unknown) diclofenac sodium (units (unknown) date) 75 mg unknown) tablet,delayed release 75 mg PO BID PRN 02/01/22 (unknown) (no (unknown) (unknown) dishes. And, (units (u nknown) date) remember, chocolate unknown) has caffeine. (unknown) (no (unknown) (unknown) done before bed to (units (unknown) date) help initiate a unknown) restful night's sleep. (unknown) (no (unknown) (unknown) doxycycline (units (un known) date) hyclate 50 mg unknown) tablet 50 mg PO DAILY 02/01/22 [History Confirmed (unknown) (no (unknown) (unknown) drowsy. (units (unkno wn) date) unknown) (unknown) (no (unknown) (unknown) due to the (units (unk nown) date) inherent unknown) limitations of voice recognition software. Please read the (unknown) (no (unknown) (unknown) duloxetine 30 mg (units (unknown) date) capsule,delayed unknown) release 30 mg PO DAILY 02/01/22 [History (unknown) (no (unknown) (unknown) duloxetine 60 mg (units (unknown) date) capsule,delayed unknown) release 60 mg PO DAILY 02/01/22 [History (unknown) (no (unknown) (unknown) elevated RDI. (units ( unknown) date) Three sleep studies unknown) have been completed and the RDIs have been (unknown) (no (unknown) (unknown) epinephrine 0.3 (units (unknown) date) mg/0.3 mL unknown) injection, auto-injector 0.3 mg IM ONCE 02/01/22 (unknown) (no (unknown) (unknown) erenumab-aooe 70 (units (unknown) date) mg/mL subcutaneous unknown) auto-injector ([employer] Autoinjector) 70 mg (unknown) (no (unknown) (unknown) findings (units (unkno wn) date) discussed. unknown) Compliance is suboptimal however she states she did not use (unknown) (no (unknown) (unknown) flow. She is (units (u nknown) date) benefitting from unknown) therapy and has willing to continue with CPAP. (unknown) (no (unknown) (unknown) fluticasone 500 (units (unknown) date) mcg-salmeterol 50 unknown) mcg/dose blistr powdr for inhalation (Advair (unknown) (no (unknown) (unknown) frovatriptan 2.5 (units (unknown) date) mg tablet 2.5 mg PO unknown) ONCE 02/01/22 [History Confirmed 02/01/22] (unknown) (no (unknown) (unknown) gabapentin 300 mg (units (unknown) date) capsule 300 mg PO unknown) TID 02/01/22 [History Confirmed 02/01/22] (unknown) (no (unknown) (unknown) gasping Choking or (units (unknown) date) Gasping Branch: unknown) denied, epworth sleep scale score (02/18) and (unknown) (no (unknown) (unknown) ibuprofen 200 mg (units (unknown) date) tablet 800 mg PO unknown) Q6H PRN 02/01/22 [History Confirmed 02/01/22] (unknown) (no (unknown) (unknown) indicated. Study (units (unknown) date) again showed little unknown) to no rem sleep, poor quality sleep and an (unknown) (no (unknown) (unknown) instructed to (units ( unknown) date) return sooner if unknown) any questions or concerns arise. (unknown) (no (unknown) (unknown) intranasal BID (units (unknown) date) 02/01/22 [History unknown) Confirmed 02/01/22] (unknown) (no (unknown) (unknown) is willing to (units ( unknown) date) continue. unknown) (unknown) (no (unknown) (unknown) lamotrigine 200 mg (units (unknown) date) tablet,extended unknown) release 24 hr 200 mg PO DAILY 02/01/22 (unknown) (no (unknown) (unknown) leg movements. (units (unknown) date) Given her sleep unknown) issues, low REM sleep amount on the sleep study (unknown) (no (unknown) (unknown) levocetirizine 5 (units (unknown) date) mg tablet 5 mg PO unknown) DAILY 02/01/22 [History Confirmed 02/01/22] (unknown) (no (unknown) (unknown) lisdexamfetamine (units (unknown) date) 60 mg capsule unknown) (Vyvanse) 60 mg PO DAILY 02/01/22 [History (unknown) (no (unknown) (unknown) listen to the (units ( unknown) date) radio, or read as unknown) if you associate falling asleep with these (unknown) (no (unknown) (unknown) metoclopramide HCl (units (unknown) date) 10 mg tablet 10 mg unknown) PO QAC 02/01/22 [History Confirmed (unknown) (no (unknown) (unknown) morning (units (unkno wn) date) (sometimes), denies unknown) nocturnal cough, denies nocturnal palpitations, (unknown) (no (unknown) (unknown) note carefully and (units (unknown) date) recognize, using unknown) context, where these substitutions have (unknown) (no (unknown) (unknown) nothing was found) (units (unknown) date) unknown) (unknown) (no (unknown) (unknown) occurred. If there (units (unknown) date) are any questions, unknown) please contact the Medical Records Dept (unknown) (no (unknown) (unknown) of [facility] therapy: (units (unknown) date) CPAP (5-15 cwp) unknown) (unknown) (no (unknown) (unknown) of depression and (units (unknown) date) chronic insomnia unknown) with a Mallampati score of IV. She has had (unknown) (no (unknown) (unknown) older people who (units (unknown) date) may not venture unknown) outside as frequently as children and adults. (unknown) (no (unknown) (unknown) omeprazole 40 mg (units (unknown) date) capsule,delayed unknown) release 40 mg PO DAILY 02/01/22 [History (unknown) (no (unknown) (unknown) on PAP well, sleep (units (unknown) date) quality well and unknown) daytime sleepiness Daytime Sleepiness Branch (unknown) (no (unknown) (unknown) optimal sleep (units ( unknown) date) schedule. unknown) (unknown) (no (unknown) (unknown) personal (units (unkno wn) date) electronic devices, unknown) can also help maintain a healthy sleep-wake cycle. (unknown) (no (unknown) (unknown) pressure. Showing (units (unknown) date) positive unknown) improvement as evidenced by better sleep and (unknown) (no (unknown) (unknown) problem. Risks and (units (unknown) date) symptoms of unknown) drowsiness were reviewed. Symptoms have improved (unknown) (no (unknown) (unknown) quality sleep and (units (unknown) date) daytime sleepiness. unknown) (unknown) (no (unknown) (unknown) reports anxiety (units (unknown) date) unknown) (unknown) (no (unknown) (unknown) reports nasal (units (u nknown) date) congestion at unknown) night, reports dry mouth, reports sore throat in the (unknown) (no (unknown) (unknown) reports pain (units (un known) date) (sometimes, unknown) headaches, neck pain), reports dizziness in the morning (unknown) (no (unknown) (unknown) reports sleeping (units (unknown) date) pills (gabapentin) unknown) (unknown) (no (unknown) (unknown) respiratory (units (un known) date) disturbance or unknown) UARS. CPAP was initiated. (unknown) (no (unknown) (unknown) rizatriptan 10 mg (units (unknown) date) tablet 10 mg PO unknown) ONCE 02/01/22 [History Confirmed 02/01/22] (unknown) (no (unknown) (unknown) sentences and no (units (unknown) date) audible wheezes unknown) (unknown) (no (unknown) (unknown) significant sleep (units (unknown) date) apnea, no snoring, unknown) some desaturation events and no significant (unknown) (no (unknown) (unknown) since initiating (units (unknown) date) PAP therapy. unknown) (unknown) (no (unknown) (unknown) sleep pattern. (units ( unknown) date) There is also a unknown) history of depression and chronic insomnia with a (unknown) (no (unknown) (unknown) software. Although (units (unknown) date) every effort is unknown) made to edit content, garde manger errors ma (unknown) (no (unknown) (unknown) somnolence (units (unk nown) date) occasional, snoring unknown) not appreciated, apnea not witnessed, choking or (unknown) (no (unknown) (unknown) spending time in (units (unknown) date) bed not sleeping unknown) moderate, normal bedtime ([id number]), normal (unknown) (no (unknown) (unknown) staying asleep (units (unknown) date) intermittent unknown) (improving), machine taper awakening frequent, (unknown) (no (unknown) (unknown) study again showed (units (unknown) date) little to no rem unknown) sleep, poor quality sleep and an elevated (unknown) (no (unknown) (unknown) taken in the (units (u nknown) date) morning or late unknown) afternoon. A relaxing exercise, like yoga, can be (unknown) (no (unknown) (unknown) the day (units (unkno wn) date) (sometimes), unknown) reports depression (controlled with medications) and (unknown) (no (unknown) (unknown) the second half as (units (unknown) date) the body begins to unknown) metabolize the alcohol, causing arousal. (unknown) (no (unknown) (unknown) therapy indicated (units (unknown) date) to determine to unknown) what extent this is contributing to her poor (unknown) (no (unknown) (unknown) three diagnostic (units (unknown) date) sleep studies unknown) consistent with less than significant sleep (unknown) (no (unknown) (unknown) to sleep apnea, (units (unknown) date) insomnia, unknown) depression, medical conditions or can be a primary (unknown) (no (unknown) (unknown) to using it (units (un known) date) regularly. She is unknown) showing positive improvement with optimal AHI (unknown) (no (unknown) (unknown) treatment (units (unkn own) date) improving on unknown) treatment (unknown) (no (unknown) (unknown) unspecified (units (un known) date) unknown) (unknown) (no (unknown) (unknown) verapamil 120 mg (units (unknown) date) 24 hr unknown) capsule,extended release 120 mg PO BID 02/01/22 [History (unknown) (no (unknown) (unknown) wake time (units (unkno wn) date) ([id number]), sleep unknown) schedule Sleep Schedule Branch: consistent, daytime (unknown) (no (unknown) (unknown) while she was (units ( unknown) date) having sinus unknown) issues. She likes her machine and is looking forward (unknown) (no (unknown) (unknown) with a sleep (units (u nknown) date) problem, it's not a unknown) good time to start experimenting with spicy (unknown) (no (unknown) (unknown) y occur. (units (unkno wn) date) Occasional unknown) wrong-word or 'sound-alike' substitutions may have occurred Social History No information. Vital Signs date measurement value units +0000 BMI BMI 41.57 kg/m2 +0000 BP_diastolic BP_diastolic 88 mm[H g] +0000 BP_systolic BP_systolic 142 mm[Hg] +0000 heart_rate heart_rate 80 /min +0000 height_metric height_metric 180.34 cm +0000 height_standard height_standard 71 in +0000 respiration_rate respiration_rate 14 /min +0000 temperature_metric temperature_metric 36.44 C +0000 temperature_standard temperature_standard 9 7.6 F [id number]+0000 weight_metric weight_metric 134.72 kg +0000 weight_standard weight_standard 297 lb
[2022-03-13 10:50] LABS: BASOPHILS % (AUTO) 0.3 %; EOSINOPHILS # (AUTO) 0.1 10^3/uL (0.0-0.7); EOSINOPHILS % (AUTO) 1.1 %; HCT - HEMATOCRIT 37.6 % (37.0-47.0); HGB - HEMOGLOBIN 12.4 g/dL (12.0-16.0); LYMPHOCYTES # (AUTO) 1.2 10^3/uL (1.5-3.5); MEAN CORPUSCULAR HEMOGLOBIN 28.3 pg (27.0-31.0); MEAN CORPUSCULAR VOLUME 85.8 fL (81.0-99.0); MEAN PLATELET VOLUME 9.5 fL (7.9-10.8); MONOCYTES # (AUTO) 0.8 10^3/uL (0.0-1.0); MONOCYTES % (AUTO) 8.4 %; NEUTROPHILS # (AUTO) 6.9 10^3/uL (1.5-6.6); NEUTROPHILS % (AUTO) 76.9 %; PLT - PLATELET COUNT 432 10^3/uL (130-450); RED BLOOD COUNT 4.38 10^6/uL (4.20-5.40); RED CELL DISTRIBUTION WIDTH 14.6 % (12.0-15.0)
[2022-03-13] MEDS ORDERED: PROPOFOL 200 MG/20 ML VIAL IVP STA (11:01)
[2022-03-13 11:03] LABS: ALBUMIN 4.1 g/dL (3.2-5.5); ALBUMIN/GLOBULIN RATIO 1.3 (1.0-2.2); BILIRUBIN,TOTAL 0.4 mg/dL (0.2-1.0); CALCIUM 9.5 mg/dL (8.5-10.3); CREATININE 0.7 mg/dL (0.4-1.0); POTASSIUM 3.9 mmol/L (3.5-5.0); TOTAL PROTEIN 7.3 g/dL (6.7-8.2)
[2022-03-13 11:48] LABS: CORONAVIRUS 229E-RESP PCR NOT DETECTED; CORONAVIRUS HKU1-RESP PCR NOT DETECTED; CORONAVIRUS NL63-RESP PCR NOT DETECTED; CORONAVIRUS OC43-RESP PCR NOT DETECTED; HUMAN METAPNEUMOVIRUS NOT DETECTED; INFLUENZA A- RESP PCR PANEL NOT DETECTED; RHINOVIRUS/ENTEROVIRUS NOT DETECTED; SARS-CoV-2 -RESP PCR PANEL NOT DETECTED
[2022-03-13 11:49] LABS: B. PARAPERTUSSIS- RESP PCR PAN NOT DETECTED; B. PERTUSSIS- RESP PCR PANEL NOT DETECTED; C. PNEUMONIAE- RESP PCR PANEL NOT DETECTED; INFLUENZA B - RESP PCR PANEL NOT DETECTED; M. PNEUMONIAE- RESP PCR PANEL NOT DETECTED; PARAINFLUENZA VIRUS 1 NOT DETECTED; PARAINFLUENZA VIRUS 2 NOT DETECTED; PARAINFLUENZA VIRUS 3 NOT DETECTED; PARAINFLUENZA VIRUS 4 NOT DETECTED; RSV- RESP PCR PANEL NOT DETECTED
[2022-03-13] MEDS ORDERED: HYDROmorphone 0.5 MG/0.5 ML SYRINGE IVP STA (12:02)
--- NOTE | 2022-03-13 12:09 | ED Physician Documentation ---
PD HPI LOWER EXT INJURY - Stated complaint Stated Complaint: ANKLE INJ/FALL - Chief complaint Chief Complaint: Ext Problem - History obtained from History obtained from: Patient, EMS - Additional information Additional information: The patient comes emergency department via EMS for chief complaint of right ankle injury after fall. Patient states that she was walking on the stairs when she slipped, catching her right foot behind her she fell. The patient states she slid down about 5 stairs and after the fall, she noticed that her right ankle was painful and deformed. The patient denies any other complaints at this time. She was not injured in any other way. She did not hit her head or lose consciousness. She is on multiple medications, but no anticoagulants. Review of Systems Ten Systems: 10 systems reviewed and negative Constitutional: reports: Reviewed and negative Eyes: reports: Reviewed and negative Ears: reports: Reviewed and negative Nose: reports: Reviewed and negative Throat: reports: Reviewed and negative Cardiac: reports: Reviewed and negative Respiratory: reports: Reviewed and negative GI: reports: Reviewed and negative : reports: Reviewed and negative Skin: reports: Reviewed and negative Musculoskeletal: reports: Extremity pain, Joint pain, Joint swelling Neurologic: reports: Reviewed and negative Psychiatric: reports: Reviewed and negative Endocrine: reports: Reviewed and negative Immunocompromised: reports: Reviewed and negative PD PAST MEDICAL HISTORY - Past Surgical History Past Surgical History: No - Present Medications Home Medications: Ambulatory Orders Medication Instructions Recorded Confirmed Citalopram [CeleXA] 40 mg PO DAILY 06/13/17 06/13/17 Fluticasone [Flonase] 06/13/17 Omeprazole 40 mg PO DAILY 06/13/17 06/13/17 cephALEXin [Keflex] 500 mg PO Q6H 7 Days capsule 06/13/17 HYDROcod/ACETAM 5/325 [Harrah 5/325] 1 - 2 tablet PO Q6H PRN #20 tablet 03/13/22 - Allergies Allergies/Adverse Reactions: Allergies Allergy/AdvReac Type Severity Reaction Status Date / Time No Known Drug Allergies Allergy Verified 06/13/17 19:13 - Social History Does the pt smoke?: No Smoking Status: Never smoker - Immunizations Immunizations are current?: Yes PD ED PE NORMAL - Vitals Vital signs reviewed: Yes - General General: Alert and oriented X 3, No acute distress, Well developed/nourished - HEENT HEENT: Atraumatic, PERRL, EOMI, Moist mucous membranes - Neck Neck: Supple, no meningeal sign - Cardiac Cardiac: Strong equal pulses (Right dorsalis pedis and posterior tibial pulses intact.) - Respiratory Respiratory: No respiratory distress - Derm Derm: Normal color, Warm and dry, No rash - Extremities Extremities: Other (Gross deformity of right ankle, which appears dislocated.) - Neuro Neuro: Alert and oriented X 3, lab director 2-12 intact, No motor deficit, No sensory deficit, Normal speech - Psych Psych: Normal mood, Normal affect Results - Vitals Vitals: Vital Signs - 24 hr 03/13/22 03/13/22 03/13/22 09:51 11:01 11:25 Temperature 36.5 C Heart Rate 120 H 87 85 Respiratory 18 15 18 Rate Blood Pressure 175/95 H 125/94 H 130/88 H O2 Saturation 100 99 99 03/13/22 03/13/22 03/13/22 11:33 11:34 12:07 Temperature Heart Rate 78 75 89 Respiratory 13 18 17 Rate Blood Pressure 123/80 123/80 O2 Saturation 99 99 03/13/22 13:00 Temperature Heart Rate 67 Respiratory 16 Rate Blood Pressure 119/74 O2 Saturation 99 Oxygen O2 Source Room air - Labs Labs: Laboratory Tests 03/13/22 03/13/22 03/13/22 10:30 10:30 10:30 WBC 9.0 RBC 4.38 Hgb 12.4 Hct 37.6 MCV 85.8 MCH 28.3 MCHC 33.0 RDW 14.6 Plt Count 432 MPV 9.5 Neut # (Auto) 6.9 H Lymph # (Auto) 1.2 L [place] # (Auto) 0.8 Eos # (Auto) 0.1 Baso # (Auto) 0.0 Absolute Nucleated RBC 0.00 Nucleated RBC % 0.0 Sodium 137 Potassium 3.9 Chloride 105 Carbon Dioxide 23 Anion Gap 9.0 BUN 13 Creatinine 0.7 Estimated GFR (MDRD) 93 Glucose 112 H Calcium 9.5 Total Bilirubin 0.4 AST 29 ALT 33 Alkaline Phosphatase 84 Total Protein 7.3 Albumin 4.1 Globulin 3.2 Albumin/Globulin Ratio 1.3 Lipase 27 Nasal Adenovirus (PCR) NOT DETECTED Nasal B. parapertussis DNA (PCR) NOT DETECTED Nasal Coronavir 229E PCR NOT DETECTED Nasal Coronavir HKU1 PCR NOT DETECTED Nasal Coronavir NL63 PCR NOT DETECTED Nasal Coronavir OC43 PCR NOT DETECTED Nasal Enterovir/Rhinovir PCR NOT DETECTED Nasal Influenza B PCR NOT DETECTED Nasal Influenza A PCR NOT DETECTED Nasal Parainfluen 1 PCR NOT DETECTED Nasal Parainfluen 2 PCR NOT DETECTED Nasal Parainfluen 3 PCR NOT DETECTED Nasal Parainfluen 4 PCR NOT DETECTED Nasal RSV (PCR) NOT DETECTED Nasal B.pertussis DNA PCR NOT DETECTED Nasal C.pneumoniae (PCR) NOT DETECTED Reinaldo Human Metapneumo PCR NOT DETECTED Nasal M.pneumoniae (PCR) NOT DETECTED Nasal SARS-CoV-2 (PCR) NOT DETECTED - Rads (name of study) Tib-fib/ankle x-ray Radiology: Final report received, EMP read indepedently, See rad report (Trimalleolar fracture with complete disruption of the ankle mortise and anterior dislocation of the tibial plafond and over the talus.) Right ankle CT Radiology: Final report received, EMP read indepedently, See rad report (Mode rately displaced comminuted trimalleolar fracture subluxation ) Procedures - Reduction Body part reduced: Right, Ankle Fracture or dislocation: Fracture dislocation Anesthesia: Other (propofol) Reduction aftercare: NV intact, Splint applied, Patient tolerated well, Other (Reduction procedure went well with visible improvement in the deformity of the ankle. However, the x-ray following reduction did not show satisfactory Level of reduction, so I did reduce the ankle further before splinting and CT scan.) - Procedural sedation Sedation prep: Informed consent, Time out completed, Last meal, PE performed, ASA 2 - mild disease Sedation Medications: propofol Mallampati classification: II Patient status during sedation: Responds to tactile, Vitals remained stable, Maintained airway, Recovered uneventfully Sedation recovery: Recovered uneventfully, Back to baseline Time in sedation (Minutes): 5 PD MEDICAL DECISION MAKING - ED course Complexity details: reviewed results, re-evaluated patient, considered differential, d/w patient ED course: The patient was treated with Dilaudid and sent for x-ray of the tib-fib and ankle. This did show a fracture dislocation. I spoke with Dr. Rutledge, who s tated that we could reduce in the emergency department, and he would see the patient in the next couple of days in his office. He did request a CT scan, which I have ordered. Reduction was undertaken, as above of. Well clinical improvement was definite and very noticeable, the repeat x-rays were not satisfactory, and so I did further reduce the fracture dislocation. Patient was placed in a bulky Matos splint and sent for CT scan, which did not show definite improvement of the bony alignment. Dr. Rutledge did come and see the patient in the emergency department and a plan was made for her follow-up. I have sent a prescription for analgesia to the pharmacy the patient's choice and the patient's ride is here. We have discussed the importance of timely follow-up with Dr. Rutledge. Departure - Departure Disposition: 01 Home, Self Care Clinical Impression: Trimalleolar fracture of ankle, closed Qualifiers: Encounter type: initial encounter Laterality: right Qualified Code(s): S82.851A - Displaced trimalleolar fracture of right lower leg, initial encounter for closed fracture Dislocation of ankle, right, closed Qualifiers: Encounter type: initial encounter Qualified Code(s): S93.04XA - Dislocation of right ankle joint, initial encounter Condition: Stable Instructions: ED Fx Ankle General Prescriptions: HYDROcod/ACETAM 5/325 [Harrah 5/325] 1 - 2 tablet PO Q6H PRN #20 tablet PRN Reason: Pain Comments: As we have discussed, your x-rays and CT scan demonstrate a fracture dislocation of your right ankle, involving both the bones of your lower leg. However, by the time of CT and after our reduction efforts, your bony alignment is vastly improved compared with when you first came in. You have been placed in a splint which should remain on until you are cleared by orthopedics. You should not bear any weight on your right foot/leg, will be to use the crutches you have been given. You have been seen by Dr. Rutledge, the orthopedic surgeon, in the emergency department, and he would like to see you in his office in the next couple of days. Please call the number provided to make this appointment. A prescription for your pain medication has been electronically transmitted to the [facility] pharmacy in [place]. Forms: Activity restrictions
--- NOTE | 2022-03-13 12:20 | XRAY Report ---
PROCEDURE: Tib/Fib RT, x-ray INDICATIONS: PRIORS: NONE fall/deformity TECHNIQUE: 2 views of the tibia and fibula were obtained COMPARISON: None. FINDINGS: Oblique fracture through the distal tibial metaphysis associated with anterior dislocation of the tib ial plafond over the talus with complete ankle mortise disruption. Oblique fracture through the dista l fibula as well with lateral angulation. Medial malleolus fracture. Associated soft tissue swelling without radiopaque foreign body IMPRESSION: Trimalleolar fracture with complete disruption of the ankle mortise and anterior dislocation of the t ibial plafond over the talus Reviewed by: Fer Galvan MD on 03/13/2022 10:09 AM CAITLYN Approved by: Fer Galvan MD on 03/13/2022 10:09 AM CAITLYN Station ID: [id number]
--- NOTE | 2022-03-13 12:48 | XRAY Report ---
PROCEDURE: Ankle 2 View RT INDICATIONS: post-reduction TECHNIQUE: 2 views of the ankle were acquired. COMPARISON: Right tibia and fibula radiographs same day FINDINGS: Interval reduction acute displaced trimalleolar fracture. Lateral talar shift persists, slightly impr vanessa. Posterior dislocation of the talus relative to the tibia is mildly decreased. IMPRESSION: Mild improvement in the alignment of the acute displaced trimalleolar fracture. Reviewed by: Ghanshyam Garcia MD on 03/13/2022 12:47 PM PDT Approved by: Ghanshyam Garcia MD on 03/13/2022 12:47 PM PDT Station ID: [id number]
[2022-03-13 13:29] VITALS: BP 119/74
--- NOTE | 2022-03-13 13:30 | CT Report ---
PROCEDURE: LOWER EXTREMITY WO - RT INDICATIONS: ankle fracture TECHNIQUE: Noncontrast 3-mm axial sections acquired from the distal tibial shaft to the talar dome, with coronal and sagittal reformats. For radiation dose reduction, the following was used: automated exposure c ontrol, adjustment of mA and/or kV according to patient size. COMPARISON: Right ankle radiographs 03/13/2022 FINDINGS: Image quality: Excellent. Bones: Comminuted fractures of the distal tibia and fibula are redemonstrated. There is a transverse fracture at the medial malleolus with up to 5 mm dorsal displacement and 4 mm l ateral displacement of the distal fracture fragment. A few tiny comminuted fracture fragments are see n along the fracture margins. There is lateral subluxation of the talar dome along with the medial ma lleolar fragment. An oblique longitudinal fracture is seen at the posterior malleolus of the distal tibia extending int o the posterior tibiotalar joint. There is approximately 4 mm gap along the fracture line and up to 2 mm step-off at the articular surface. Multiple tiny comminuted osseous fragments are seen along the fracture line. Additional small nondisplaced fracture is seen in the anterolateral tibial plafond involving the tibi al insertion of the anterior tibiofibular ligament. An oblique comminuted fracture of the distal fibula is seen. The dominant distal fracture fragment is posteriorly displaced by approximately 8 mm. The proximal fibular metaphyseal fracture fragments abu ts the displaced talar dome. Soft tissues: Soft tissue edema is seen surrounding the ankle. The articular cartilages, ligaments, and tendons are not well evaluated with standard CT. IMPRESSION: Moderately displaced comminuted trimalleolar fracture-subluxation as described in the body report. Reviewed by: Ghanshyam Navarro MD on 03/13/2022 1:29 PM PDT Approved by: Ghanshyam Navarro MD on 03/13/2022 1:29 PM PDT Station ID: [id number]
== END 2022-03-13 13:51 | disposition home or self-care (01) ==
LOC: EDUNIT# → ED 09:49
DX: S82.851A Displaced trimalleolar fracture of right lower leg, initial encounter for closed fracture (principal); S93.04XA Dislocation of right ankle joint, initial encounter; W10.9XXA Fall (on) (from) unspecified stairs and steps, initial encounter; Z20.822 Contact with and (suspected) exposure to COVID-19
CPT/HCPCS: 27818; 36415; 73590; 73600; 73700; 80053; 83690; 85025; 87633; 96374; 96376; 99282; 99285; J1170; 94770

== ENCOUNTER 2023-03-27 13:52 | Outpatient (CLI) | payer OTHER ==
--- NOTE | 2023-03-28 11:05 | Mammography Report ---
BILATERAL DIGITAL SCREENING MAMMOGRAM 3D/2D: 03/27/2023 CLINICAL: Baseline exam. Routine screening. No prior exams were available for comparison. There are scattered areas of fibroglandular density in both breasts (category b / 25%-50% glandular t issue). There is an irregular equal density asymmetry with an indistinct margin in the left breast at 1 o'geeta ck posterior depth. No other significant masses, calcifications, or other findings are seen in either breast. IMPRESSION: INCOMPLETE: NEEDS ADDITIONAL IMAGING EVALUATION The irregular equal density asymmetry in the left breast is indeterminate. A diagnostic mammogram an d ultrasound is recommended. Based on the Tyrer Cuzick model (a risk assessment model) the patients lifetime risk is 9.5% and her 10 year risk is 1.3%. According to the ACR, ACS, and NCCN guidelines, an annual breast MRI exam sanjuana g with mammogram is recommended if the patients lifetime risk is 20% or greater. This exam was interpreted at Station ID: [id number]. NOTE: For mammograms, a report in lay terms will be sent to the patient. Approximately 15% of breast malignancies will not be visualized mammographically. In the management of a palpable breast mass, a negative mammogram must not discourage biopsy of a clinically suspicious lesion. Electronically Signed By: Vivi ramirez/kecia:03/27/2023 16:23:21 ACR BI-RADS Category 0: Incomplete 3340F PARENCHYMAL PATTERN: (A) - The breast(s) demonstrate(s) scattered fibroglandular densities. BI-RADS CATEGORY: (0) - 0 Mammo and [place] [id number] Immediate follow-up LATERALITY: (B)
== END 2023-03-27 13:53 | disposition home or self-care (01) ==
LOC: DI.N 13:52
PROVIDERS: ATTEND Registered Nurse
DX: Z12.31 Encounter for screening mammogram for malignant neoplasm of breast (principal); R92.8 Other abnormal and inconclusive findings on diagnostic imaging of breast; R92.323 Mammographic fibroglandular density, bilateral breasts

== ENCOUNTER 2023-06-18 21:11 | Emergency (ER) | payer OTHER ==
[2023-06-18] MEDS ORDERED: BUFFERED LIDOCAINE 10 ML SYRINGE SUBQ STA (21:22)
[2023-06-18 21:28] VITALS: BP 163/82; O2SAT 100
--- NOTE | 2023-06-18 21:32 | ED Physician Documentation ---
PD HPI UPPER EXT INJURY - Stated complaint Stated Complaint: LT HAND LAC - Chief complaint Chief Complaint: Laceration - History obtained from History obtained from: Patient - Additonal information Additional information: 43-year-old right-handed woman who is up-to-date on tetanus injured her left index finger at home around 5 PM. She was "coming out of a migraine." And as such does not exactly remember what happened. She Remembers Jamming Her Finger into Something, but She Is Not Sure What. There Could Have Been Broken Glass Involved. PD PAST MEDICAL HISTORY - Past Medical History Past Medical History: Yes Cardiovascular: Hypertension Respiratory: Asthma Neuro: Migraines GI: GERD - Past Surgical History Past Surgical History: Yes Ortho: Other HEENT: Other - Present Medications Home Medications: Ambulatory Orders Medication Instructions Recorded Confirmed Fluticasone [Flonase] 1 spr ASIM DAILY 06/13/17 06/18/23 Omeprazole 40 mg PO DAILY 06/13/17 06/18/23 DULoxetine [Cymbalta] 90 mg PO DAILY 06/18/23 06/18/23 Fluticasone/Salmeterol [Advair 1 inh DAILY 06/18/23 06/18/23 500-50 Diskus] Gabapentin [Neurontin] 300 mg PO TID 06/18/23 06/18/23 Lisdexamfetamine Dimesylate 60 mg PO DAILY 06/18/23 06/18/23 [Vyvanse] Meloxicam 15 mg PO DAILY 06/18/23 06/18/23 Rizatriptan Benzoate [Rizatriptan] 5 mg PO PRN PRN 06/18/23 06/18/23 Verapamil HCl [Verapamil ER] 120 mg PO DAILY 06/18/23 06/18/23 cephALEXin [Keflex] 500 mg PO Q6H #20 cap 06/18/23 lamoTRIgine [Lamictal Xr] 200 mg PO DAILY 06/18/23 06/18/23 methocarbamoL [Methocarbamol] 750 mg PO PRN PRN 06/18/23 06/18/23 - Allergies Allergies/Adverse Reactions: Allergies Allergy/AdvReac Type Severity Reaction Status Date / Time No Known Drug Allergies Allergy Verified 06/18/23 21:28 - Social History Does the pt smoke?: No Smoking Status: Never smoker Does the pt drink ETOH?: No - Immunizations Immunizations are current?: Yes PD ED PE NORMAL - Vitals Vital signs reviewed: Yes - General General: Alert and oriented X 3, No acute distress - Extremities Extremities: Other (3 small lacerations on the tip of the index finger of the left hand without distal neurovascular compromise.) - Neuro Neuro: Alert and oriented X 3, Normal speech Results - Vitals Vitals: Vital Signs - 24 hr 06/18/23 06/18/23 21:17 21:40 Temperature 36.6 C Heart Rate 96 Respiratory 19 Rate Blood Pressure 163/82 H O2 Saturation 100 Oxygen O2 Source Room air Procedures - Laceration (location) L 2nd finger Length in cm: 3 Wound type: Superficial, Other (see mdm description) Neurovascular status: Sensory intact Anesthesia: Lidocaine 1%, With bicarb Wound preparation: Hibiclens, Irrigated copiously NS Skin layer closure: Nylon, Interrupted, Size #-0 - enter number (5-0), Sutures - enter # (8) Other: Patient tolerated well, No complications, Neurovascular intact, Tetanus UTD PD Medical Decision Making - ED course ED course: There are 3 lacerations on the left index finger, 1 on the dorsum that is L- shaped, not involving the nailbed that measures 2 cm, 1 on the side that is just tiny, and 1 on the pulp that is a little less than a centimeter. These were irrigated and closed. Departure - Departure Disposition: 01 Home, Self Care Condition: Good Record reviewed to determine appropriate education?: Yes Instructions: ED Fx Finger Open Prescriptions: cephALEXin [Keflex] 500 mg PO Q6H #20 cap Comments: Come back for any signs of infection which would include: Redness, swelling, drainage, increased pain, or fevers. You can wash it soap and water. Keep it covered and moist with bacitracin ointment which is available over the counter; avoid neosporin. Follow-up with your physician in about 14 There is a tiny tiny little chip fracture in that finger and as such prophylactic antibiotics are indicated. Days for suture removal. Forms: PCP List
[2023-06-18] MEDS ORDERED: cephALEXin 250 MG CAPSULE PO STA (21:52)
[2023-06-18] MEDS ORDERED: CEPHALEXIN 250 MG Prepack 8 CAP BOTTLE PO STA (21:53)
--- NOTE | 2023-06-18 22:00 | XRAY Report ---
PROCEDURE: Finger(s) RT INDICATIONS: finger inj TECHNIQUE: AP hand, 2 views of the second finger(s) acquired. COMPARISON: None. FINDINGS: Bones: A tiny chip fracture involving the second distal phalanx. No dislocations. No suspicious bon y lesions. Soft tissues: Soft laceration tissue swelling noted. No suspicious soft tissue calcifications or ma sses. IMPRESSION: A small chip fracture in the second distal phalanx. Reviewed by: Katie Vásquez MD on 06/18/2023 9:59 PM PST Approved by: Katie Vásquez MD on 06/18/2023 9:59 PM [id number] Station ID: [id number]
== END 2023-06-18 22:21 | disposition home or self-care (01) ==
LOC: ED 21:11
DX: S61.211A Laceration without foreign body of left index finger without damage to nail, initial encounter (principal); X58.XXXA Exposure to other specified factors, initial encounter; Y92.009 Unspecified place in unspecified non-institutional (private) residence as the place of occurrence of the external cause; I10 Essential (primary) hypertension; Z79.899 Other long term (current) drug therapy; Z79.51 Long term (current) use of inhaled steroids
CPT/HCPCS: 12002; 73140; 99283; A9270